=== PATIENT | male | born 1950 | race Caucasian/White ===

== ENCOUNTER 2023-02-02 10:14 | Outpatient (OUT) | payer MEDICARE, SELFPAY ==
[2023-02-02 10:48] LABS: Anion Gap 10.8; BUN Creatinine Ratio 12.4; Calcium 8.7 mg/dL (8.5-10.1); Carbon Dioxide 27.4 mmol/L (21.0-32.0); Chloride 104 mmol/L (98-107); Estimated GFR (African America >60 (>=60); Estimated GFR (Non-African Ame >60 (>=60); Glucose 105 mg/dL (74-106); Potassium 4.2 mmol/L (3.5-5.1); Sodium 138 mmol/L (136-145)
== END 2023-02-02 10:15 | disposition home or self-care (01) ==
LOC: LAB 10:14
PROVIDERS: Visit Provider Nurse Practitioner
DX: I50.23 Acute on chronic systolic (congestive) heart failure (principal)
CPT/HCPCS: 36415; 80048

== ENCOUNTER 2023-05-25 10:53 | Outpatient (OUT) | payer OTHER, SELFPAY ==
[2023-05-25 12:11] LABS: Free T4 1.37 ng/dL (0.76-1.46)
[2023-05-25 12:21] LABS: Anion Gap 6.3; BUN Creatinine Ratio 8.5; Calcium 8.4 mg/dL (8.5-10.1); Carbon Dioxide 29.7 mmol/L (21.0-32.0); Chloride 102 mmol/L (98-107); Estimated GFR (African America >60 (>=60); Estimated GFR (Non-African Ame >60 (>=60); Glucose 118 mg/dL (74-106); Sodium 134 mmol/L (136-145); Thyroid Stimulating Hormone 1.576 uIU/mL (0.358-3.740)
== END 2023-05-25 10:54 | disposition home or self-care (01) ==
LOC: LAB 10:53
PROVIDERS: Visit Provider Internal Medicine Interventional Cardiology
DX: I50.22 Chronic systolic (congestive) heart failure (principal); Z79.899 Other long term (current) drug therapy
CPT/HCPCS: 36415; 80048; 84439; 84443

== ENCOUNTER 2023-11-24 10:26 | Emergency (ER) | payer OTHER, SELFPAY ==
[2023-11-24] VITALS (38 sets, daily range): BP systolic 113–187; BP diastolic 55–81; PULSE 50–71; TEMP 36.9; O2SAT 92–99; BMI 22.5
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
--- NOTE | 2023-11-24 10:33 | XR_ITS ---
[address] [address] Patient Name: ANTONIO COFFMAN MRN: [id number] date: 1950 Sex: M Assigned Patient Location: ER Current Patient Location: ED.MAIN Accession/Order Number: [id number] Exam Date: 11/24/2023 10:35 Report Date: 11/24/2023 10:53 At the request of: PEARL OGLESBY Procedure: XR chest 1V EXAM: XR chest 1V HISTORY: Trauma COMPARISON: 03/28/2020 TECHNIQUE: AP semierect FINDINGS: LUNGS: No significant pulmonary parenchymal abnormalities. VASCULATURE: No increased pulmonary vasculature. PLEURA: No pneumothorax, effusion, or pleural thickening. CARDIAC: Moderate stable cardiomegaly. MEDIASTINUM: No visible mass or adenopathy. Left pacemaker BONES: Left humerus fracture Cervical fusion hardware OTHER: Negative. XR/XR chest 1V IMPRESSION: Left humerus fracture Stable cardiomegaly with clear lungs Electronically authenticated by: TAVON SPARKS Date: 11/24/2023 10:53
[2023-11-24] MEDS: HYDROMORPHONE HCL 1 MG/ML CARTRIDGE IV ×2 (10:49→14:58)
[2023-11-24 10:50] LABS: Basophils Percent Auto 0.3 % (0.2-2.0); Eosinophils Absolute Auto 0.1 10^3/uL (0.0-0.7); Eosinophils Percent Auto 1.1 % (0.9-7.0); Hematocrit 37.3 % (42.0-54.0); Hemoglobin 12.1 g/dL (14.0-18.0); Immature Granulocytes Abs Auto 0.22 10^3/uL (0.00-0.03); Immature Granulocytes Pct Auto 1.8 % (0.0-0.5); Lymphocytes Percent Auto 16.3 % (20.5-60.0); Mean Corpuscular HGB Conc 32.4 g/dL (29.9-35.2); Mean Corpuscular Hemoglobin 33.8 pg (25.9-34.0); Mean Corpuscular Volume 104.2 fL (80.0-94.0); Mean Platelet Volume 9.5 fL (9.5-13.5); Monocytes Absolute Auto 0.8 10^3/uL (0.3-0.8); Neutrophils Absolute Auto 8.9 10^3/uL (1.4-6.5); Neutrophils Percent Auto 73.5 % (43.0-75.0); Platelet Count 144 10^3/uL (150-450); Red Blood Count 3.58 10^6/uL (4.70-6.10); Red Cell Distribution Width 14.6 % (11.0-15.0); White Blood Count 12.1 10^3/uL (4.0-11.0)
[2023-11-24] MEDS: 0.9 % SODIUM CHLORIDE 1,000 ML 1000 ML IV (10:50)
[2023-11-24 11:04] LABS: INR 1.01; Prothrombin Time 10.7 sec (9.0-11.6)
[2023-11-24 11:10] LABS: Alanine Aminotransferase 60 U/L (16-63); Albumin Level 3.5 g/dL (3.4-5.0); Alkaline Phosphatase 65 U/L (46-116); Anion Gap 11.9; Aspartate Amino Transferase 40 U/L (15-37); Bilirubin Total 0.4 mg/dL (0.2-1.0); Calcium 9.1 mg/dL (8.5-10.1); Carbon Dioxide 26.1 mmol/L (21.0-32.0); Chloride 106 mmol/L (98-107); Estimated GFR (African America >60 (>=60); Estimated GFR (Non-African Ame >60 (>=60); Globulin 3.5 g/dL; Glucose 131 mg/dL (74-106); Sodium 140 mmol/L (136-145)
--- NOTE | 2023-11-24 11:17 | CT_ITS ---
[address] [address] Patient Name: ANTONIO COFFMAN MRN: [id number] date: 1950 Sex: M Assigned Patient Location: ER Current Patient Location: .MAIN Accession/Order Number: [id number] Exam Date: 11/24/2023 10:58 Report Date: 11/24/2023 12:01 At the request of: PEARL OGLESBY Procedure: CT cervical spine wo con PROCEDURE: CT cervical spine wo con COMPARISON: None. HISTORY: Trauma TECHNIQUE: Axial, Coronal, and Sagittal CT images obtained without IV contrast. Dose reduction techniques were achieved by using automated exposure control and/or adjustment of mA and/or kV according to patient size and/or use of iterative reconstruction technique. FINDINGS: PARASPINAL AREA: Normal with no visible mass. DISCS: Multilevel disc space narrowing. Fusion C5-C7. BONES: 3 mm anterolisthesis of C3 in relation to C4 and 4 mm anterolisthesis of C7 on T1. No acute fracture. Anterior fusion C5-C7 with no mechanical failure. Moderate degenerative spondylosis and facet osteoarthropathy OTHER: Multilevel foraminal stenosis, most significant right C3-C4 and left C4-C5 CT/CT cervical spine wo con IMPRESSION: No acute traumatic abnormality Moderate degenerative changes with foraminal stenosis Electronically authenticated by: TAVON SPARKS Date: 11/24/2023 12:01
--- NOTE | 2023-11-24 11:17 | XR_ITS ---
[address] [address] Patient Name: ANTONIO COFFMAN MRN: [id number] date: 1950 Sex: M Assigned Patient Location: ER Current Patient Location: ED.MAIN Accession/Order Number: [id number] Exam Date: 11/24/2023 11:10 Report Date: 11/24/2023 11:28 At the request of: PEARL OGLESBY Procedure: XR humerus LT PROCEDURE: XR humerus LT COMPARISON: None. HISTORY: Trauma FINDINGS: BONES:Acute oblique fracture of the left humeral diaphysis with distraction up to 1.6 cm. No dislocation SOFT TISSUES:Negative. No visible soft tissue swelling. EFFUSION:None visible. OTHER: Limited nonstandard nonorthogonal projections XR/XR humerus LT IMPRESSION: Acute displaced left humeral diaphyseal fracture Electronically authenticated by: TAVON SPARKS Date: 11/24/2023 11:28
[2023-11-24] MEDS: BACITRACIN 0.9 GM PACKET 1 PACKET TOPICAL (12:45)
--- NOTE | 2023-11-24 12:59 | ECG_ITS ---
[facility] Test Date: 2023-11-24 Pat Name: ANTONIO COFFMAN Department: Room: - Gender: Male Division [address] Supervisor: : 1950 Requested By: [id number] Order Number: [id number] Reading MD: Measurements Intervals [place] Rate: 53 P: 56 IN: 188 QRS: 252 QRSD: 148 T: 67 QT: 512 QTc: 494 Interpretive Statements 1100 Sinus rhythm 2330 Nonspecific intraventricular conduction block 7100 Abnormal right axis deviation 9150 abnormal ECG No previous ECG available for comparison
--- NOTE | 2023-11-24 14:22 | PM.EN ---
Event Note Event Note: Hospitalist team called for admission for pre operative clearance for humeral fracture. I had placed admission orders for the patient but I inquired from Anesthesiology to ensure patient can be placed under GA safely at our facility and was informed that Anesthesiology would prefer that patient be transferred to Tertiary care center due to his multiple cardiac co morbidities as he is at high risk of poor outcome due to cardiac hx
== END 2023-11-24 14:58 | disposition short-term general hospital (02) ==
PROVIDERS: Emergency Provider Emergency Medicine Emergency Medical Services
DX: S42.302A Unspecified fracture of shaft of humerus, left arm, initial encounter for closed fracture (principal); V86.55XA Driver of 3- or 4- wheeled all-terrain vehicle (ATV) injured in nontraffic accident, initial encounter; I25.2 Old myocardial infarction; Z95.0 Presence of cardiac pacemaker; Z95.5 Presence of coronary angioplasty implant and graft; Z79.82 Long term (current) use of aspirin; Z79.02 Long term (current) use of antithrombotics/antiplatelets; Z79.899 Other long term (current) drug therapy
CPT/HCPCS: 36415; 71045; 72125; 73060; 80053; 85025; 85610; 93005; 96374; 96376; 99285; J1170

== ENCOUNTER 2024-05-29 09:20 | Outpatient (OUT) | payer OTHER, SELFPAY ==
[2024-05-29 11:15] LABS: Alanine Aminotransferase 17 U/L (16-63); Albumin Level 3.3 g/dL (3.4-5.0); Alkaline Phosphatase 93 U/L (46-116); Anion Gap 12.9; Aspartate Amino Transferase 18 U/L (15-37); BUN Creatinine Ratio 8.5; Bilirubin Total 0.5 mg/dL (0.2-1.0); Calcium 8.7 mg/dL (8.5-10.1); Carbon Dioxide 25.6 mmol/L (21.0-32.0); Chloride 109 mmol/L (98-107); Chol HDL Ratio 1.4; Cholesterol 102 mg/dL (<=200); Estimated GFR (African America >60 (>=60 mL/min/1.73m^2); Estimated GFR (Non-African Ame >60 (>=60 mL/min/1.73m^2); Globulin 3.3 g/dL; Glucose 96 mg/dL (74-106); HDL Cholesterol 74 mg/dL (40-60); Potassium 3.5 mmol/L (3.5-5.1); Sodium 144 mmol/L (136-145); Thyroid Stimulating Hormone 0.454 uIU/mL (0.358-3.740); Total Protein 6.6 g/dL (6.4-8.2); Triglycerides 57 mg/dL (<=150); VLDL CHOLESTEROL 11.4 mg/dL
[2024-05-29 15:07] LABS: Free T4 1.42 ng/dL (0.76-1.46)
== END 2024-05-29 09:21 | disposition home or self-care (01) ==
LOC: LAB 09:22
PROVIDERS: PCP Family Medicine; Visit Provider Nurse Practitioner Family
DX: E78.5 Hyperlipidemia, unspecified (principal); I10 Essential (primary) hypertension; Z79.899 Other long term (current) drug therapy
CPT/HCPCS: 36415; 80053; 80061; 84439; 84443

== ENCOUNTER 2024-08-28 12:44 | Outpatient (RCR) | payer OTHER, SELFPAY | END 2024-10-03 07:13 | disposition home or self-care (01) | LOC: PT 12:44 | PROVIDERS: PCP Family Medicine | DX: M54.50 Low back pain, unspecified (principal); M79.605 Pain in left leg | CPT/HCPCS: 97110; 97161 ==

== ENCOUNTER 2024-10-03 10:10 | Outpatient (OUT) | payer OTHER, SELFPAY ==
--- OUTSIDE RECORDS SUMMARY | 2024-10-03 10:15 | XMS_ITS | CCD ---
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 Roldan Khanna MD Primary Care Physician - Roldan Khanna MD This Is Your Medications List amiodarone (amiodarone 200 mg Tab) aspirin (aspirin 81 mg Oral EC Tab) atorvastatin (atorvastatin 40 mg Tab) carvedilol (carvedilol 12.5 mg Tab) clopidogrel (clopidogrel 75 mg Tab) sacubitril-valsartan (Entresto 24 mg-26 mg oral tablet) Procedures Performed Ankle, Cardiac catheterization, Cardiac pacemaker, History of vasectomy, Tonsils and adenoids. Discharge Vitals Temperature (Temporal Artery) 36.6 ?C Heart Rate (Peripheral) 56 Respiratory Rate 16 Blood Pressure 136/68 Height 161 cm Height 63 in Weight 51.4 kg Weight 113.08 lb BMI 19.83 What to do next Scheduled Follow-Up Appointments 2024 2:15 PM EST With: Roldan Khanna MD Where: [facility] [address] [address]- 2024 2:30 PM EST With: Where: [facility] [address] [address]- Medications What How Much When Instructions Unchanged amiodarone (amiodarone 200 mg Tab) 1 Tablets By Mouth 2 times a day Unchanged aspirin (aspirin 81 mg Oral EC Tab) 1 Tablets By Mouth Every day Unchanged atorvastatin (atorvastatin 40 mg Tab) See instructions TAKE 1 TABLET BY MOUTH EVERY DAY Unchanged carvedilol (carvedilol 12.5 mg Tab) 0.5 Tablets By Mouth 2 times a day Unchanged clopidogrel (clopidogrel 75 mg Tab) 1 Tablets By Mouth Every day Unchanged sacubitril-valsartan (Entresto 24 mg-26 mg oral tablet) 0.5 Tablets By Mouth 2 times a day Allergies No Known Allergies No Known Medication Allergies Problems Ongoing - Any problem that you are currently receiving treatment for. ASCVD (arteriosclerotic cardiovascular disease) Benign hypertensive heart disease with CHF (congestive heart failure) Chronic systolic congestive heart failure COPD without exacerbation Hospital discharge follow-up Hx of ventricular tachycardia Hypotension Ischemic dilated cardiomyopathy Left supracondylar humerus fracture Lumbar compression fracture Pacemaker Rib fracture Patient Survey You may receive a survey via text or e-mail asking about your office visit. Please share your experience with us by completing your survey. We appreciate your feedback and thank you for choosing us for your care. Normal [facility] Family Medicine Office/Clini c Noteon 04-17-2024 Family Medicine Office/Clinic Note Family Medicine Office/Clinic Note Chief Complaint Follow-up visit to review COPD status and ASCVD management HPI Staff Dung is a 73 year old male presenting for 3 month follow up CHF, ASCVD, COPD Patient is here for follow up on COPD: Feeling controlled on medication: not on any meds for this Need medication refilled: n/a Do you use O2? no questions/concerns: none History of Present Illness The patient is a 73-year-old male presenting with a follow-up visit to review COPD status and ASCVD management. The patient has a documented history of chronic obstructive pulmonary disease (COPD) without exacerbation. Currently, the patient reports no change in breathing, describing it as about the same as previous evaluations. The absence of prescribed inhalers was noted; the patient has never been provided inhalers and occasionally experiences shortness of breath. He is currently smoking half to three-quarters of a pack per day and aims to reduce smoking to zero. No prior lung cancer screening CT scan was confirmed; however, the patient anticipates a possible upcoming screen. In conjunction, the patient has arteriosclerotic cardiovascular disease (ASCVD) with stable management reported from recent cardiology evaluations. The patient denies any recent chest pain and is compliant with medications, including amiodarone, aspirin, atorvastatin, and Entresto. The coronary artery disease (CAD) management is being overseen by cardiology with no medication changes needed at this visit. Further chronic conditions include chronic systolic congestive heart failure without noted exacerbation. During the consultation, routine clinical checks including blood work and maintaining wellness assessments were mentioned. Review of Systems PHQ Score Initial Depression Screen Score: 0 SCORE - Respiratory: Reports occasional shortness of breath - General: Denies chest pain Physical Exam Vitals & Measurements T: 36.6 ?C(Temporal Artery) HR: 56(Peripheral) RR: 16 BP: 136/68 SpO2: 94% HT: 63 in HT: 161 cm WT: 51.4 kg WT: 113.08 lb BMI: 19.83 - Cardiovascular: Heart rate regular rhythm with the presence of a pacemaker - Respiratory: Diminished breath sounds in the lung bases improving upon standing; clear remaining lung kennedy - Neurological: Alert and oriented, equal movement of all extremities Assessment/Plan 1. ASCVD (arteriosclerotic cardiovascular disease) (I25.10: Atherosclerotic heart disease of [place] coronary artery without angina pectoris) The patient's ASCVD appears well managed under current cardiology oversight. Continued use of medications, including amiodarone, aspirin, atorvastatin, and Entresto, is indicated. No recent angina or chest pain reported, and stable cardiac status was observed. An ongoing cardiology consult is advised without new interventions from the family medicine perspective at this juncture. Ordered: Body Mass Index (BMI) documented 3008F CT Chest, Low Dose Screening Current tobacco smoker 1034F Depression Screening Negative 3352F Most recent diastolic blood pressure <80 mm Hg 3078F Patient screen for fall risk: no falls in last year or 1 fall with no injury in last year 1101F Systolic BP 130-139 mm Hg (Most Recent) 3075F 2. COPD without exacerbation (J44.9: Chronic obstructive pulmonary disease, unspecified) Although the patient experiences occasional shortness of breath, no exacerbation of COPD was noted. Inhaler therapy with albuterol as needed is recommended to address episodes of dyspnea. Discussion of smoking cessation is critical due to potential lung function detriment. A low-dose CT scan for lung cancer screening should be verified and scheduled if not completed, as the patient recalls a potentially forthcoming examination Ordered: Body Mass Index (BMI) documented 3008F CT Chest, Low Dose Screening Current tobacco smoker 1034F Depression Screening Negative 3352F Most recent diastolic blood pressure <80 mm Hg 3078F Patient screen for fall risk: no falls in last year or 1 fall with no injury in last year 1101F Systolic BP 130-139 mm Hg (Most Recent) 3075F 3. Chronic systolic congestive heart failure (I50.22: Chronic systolic (congestive) heart failure) The patient exhibits no new symptoms indicative of heart failure exacerbation. Current medication management is continued with cardiology's guidance in place, and no urgent changes required from a family medicine perspective, pending further symptoms or incident reports. Ordered: Body Mass Index (BMI) documented 3008F CT Chest, Low Dose Screening Current tobacco smoker 1034F Depression Screening Negative 3352F Most recent diastolic blood pressure <80 mm Hg 3078F Patient screen for fall risk: no falls in last year or 1 fall with no injury in last year 1101F Systolic BP 130-139 mm Hg (Most Recent) 3075F 4. Body mass index (BMI) of 19 or less in adult (Z68.1: Body mass index [BMI] 19.9 or less, adult) Monitoring of the patient's nutri (more content not included)... Normal [facility] Comment on above: Result Comment: Elec tronically Signed By: Jey LANGSTON, Roldan Talbert\.br\Date and Time Signed: 04/17/24 15:27 EDT Orders Onlyon 04-03-2024 Orders Only [id number] Matthew Coffman 1950 M Date Provider Department Center 04/03/2024 UZIEL AGUIRRE Family History Problem Relation Age of Onset No Known Problems Mother No Known Problems Father Family Status - Relation Status Age at Mother Father Normal [facility] 36on 03-20-2024 36 Okay. Please ask wha t his BP has been running. Would like for him to get a CMP and lipid panel in 2 weeks. Thanks! Normal [facility] Office Visiton 03-07-2024 Follow-up visit [id number] Matthew Coffman 1950 M Date Provider Department Center 03/07/2024 ABBY CENTENO CARD [facility] Family History Problem Relation Age of Onset No Known Problems Mother No Known Problems Father Family Status - Relation Status Age at Mother Father Level of Service:32513 ME OFFICE/OUTPATIENT ESTABLISHED LOW MDM 20 MIN Reason for Visit and Comments: Congestive Heart Failure [127] Coronary Artery Disease [187] Hypertension [624165] Normal [facility] XR shoulder LT min 2V*on XR shoulder LT min 2V* [facility] [address] [place] [address] XRay Report Signed Patient: Dung Coffman MR#: [id number] : 1950 Acct:[id number] Age/Sex: 73 / M ADM Date: 03/06/24 Loc: [facility] Room: Type: [facility] Attending Dr: Marjorie Castro NP-C Copies to: CURRY Cardoza Ordering Provider: CURRY Cardoza Date of Service: 03/06/24 XR/XR shoulder LT min 2V*: S42.302A - Unspecified fracture of shaft of humerus, left... 3 views left shoulder plain film HISTORY: Status post left humerus fracture COMPARISON: 02/06/2024 ACUTE FINDINGS: Stable alignment with interval callus formation. DEGENERATIVE CHANGE: Unremarkable SOFT TISSUE FINDINGS: Unremarkable JOINT EFFUSION: None POSTOP CHANGES: None BONY MINERALIZATION: Adequate XR/XR shoulder LT min 2V* IMPRESSION: Healing fracture Impression dictated by: Yan Greenberg M.D.03/06/2024 4:16 PM Dictation Location: [place] [address] Transcribed By: [facility] 03/06/24 161 Dictated By: Yan Greenberg DO 03/06/24 161 Signed By: 03/06/24 1616 Normal [facility] XR elbow LT 2Von 02-06-2024 XR elbow LT [address]V [facility] [address] [place] [address] XRay Report Signed Patient: Dung Coffman MR#: [id number] : 1950 Acct:[id number] Age/Sex: 73 / M ADM Date: 02/06/24 Loc: [facility] Room: Type: [facility] Attending Dr: Marjorie Castro FACSIMILE OPERATOR-C Copies to: CURRY Cardoza Ordering Provider: CURRY Cardoza Date of Service: 02/06/24 XR/XR elbow LT 2V: M25.522 - Pain in left elbow 2 views LEFTelbow plain film COMPARISON :None HISTORY: LEFT humerus fracture ACUTE FINDINGS: Proximal humerus fracture incompletely visualized. DEGENERATIVE CHANGE: Unremarkable SOFT TISSUE FINDINGS: Olecranon soft tissue swelling. JOINT EFFUSION: None POSTOP CHANGES: None BONE MINERALIZATION: Adequate XR/XR elbow LT 2V IMPRESSION: Incompletely visualized proximal LEFT humerus fracture. No additional fracture. Olecranon soft tissue swelling. Impression dictated by: Yan Greenberg M.D.02/06/2024 5:38 PM Dictation Location: [place] [address] Transcribed By: [facility] 02/06/24 1738 Dictated By: Yan Greenberg DO 02/06/24 1736 Signed By: 02/06/24 1738 Normal [facility] XR shoulder LT min 2V*on XR shoulder LT min 2V* [facility] [place] [address] XRay Report Signed Patient: Dung Coffman MR#: [id number] : 1950 Acct:[id number] Age/Sex: 73 / M ADM Date: 02/06/24 Loc: [facility] Room: Type: [facility] Attending Dr: Marjorie Castro FACSIMILE OPERATORGardeniaC Copies to: CURRY Cardoza Ordering Provider: CURRY Cardoza Date of Service: 02/06/24 XR/XR shoulder LT min 2V*: S42.302A - Unspecified fracture of shaft of humerus, left... XR shoulder LT min 2V* 02/06/2024 12:22 PM SIGNS AND SYMPTOMS: Follow-up left proximal humerus fracture PROTOCOL: Frontal, Grashey, and scapular Y views of left shoulder COMPARISON: 01/16/2024 FINDINGS: There is an obliquely oriented mildly displaced fracture of the proximal shaft of the left humerus similar to the prior exam. There is mild hypertrophy of the common clavicular joint. There is mild narrowing of the glenohumeral joint. There is ossification at the rotator cuff insertion along the greater tuberosity similar to the prior exam. There is a pacer device on the left which is unchanged. XR/XR shoulder LT min 2V* IMPRESSION: There is an obliquely oriented mildly displaced fracture of the proximal shaft of the left humerus similar to the prior exam. No change in alignment or significant interval healing. Impression dictated by: Henry Sanchez M.D.02/06/2024 5:34 PM Dictation Location: [place] [address] Transcribed By: [facility] 02/06/24 173 Dictated By: Henry Sanchez II, MD 02/06/241732 Signed By: 02/06/241733 [facility] 36 01-29-2024 36 Yes, okay from my opinion. Just make sure he checks with his PCP as well. Thanks [facility] 01-27-20 [facility] Case Information Case Priority: None Programs: -- Referral Source: Towboat Engineer Referral Reason: Care coordination Case Type: Transition Care Management Risk Score: -- Case Status: Enrolled (December 27, 2023) Date Assigned: December 27, 2023 Assigned By: Vin Vaca Date Enrolled: December 27, 2023 Assigned Primary Personnel: Vin Vaca Assigned Secondary Personnel: -- Case Physician: Jey LANGSTON, Roldan Perez Ongoing ASCVD (arteriosclerotic cardiovascular disease) 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 Home Medications amiodarone 200 mg Tab, 200 mg= 1 tab(s), Oral, BID aspirin 81 mg Oral EC Tab, 81 mg= 1 tab(s), Oral, Daily atorvastatin 40 mg Tab, See Instructions carvedilol 12.5 mg Tab, 6.25 mg= 0.5 tab(s), Oral, BID clopidogrel 75 mg Tab, 75 mg= 1 tab(s), Oral, Daily Entresto 24 mg-26 mg oral tablet, 0.5 tab(s), Oral, BID Allergies No Known Medication Allergies Social History Alcohol Household alcohol concerns: No., 09/07/2023 Tobacco 10 or more cigarettes (1/2 pack or more)/day in last 30 days Tobacco Use:. Never Smokeless Tobacco Use:. Cigarettes, 1 per day. 53 year(s). Total pack years: 53. Started age 20.0 Years. Previous treatment: None. Ready to change: No. Household tobacco concerns: No. Yes, 01/19/2024 Family History Stroke: Father. Screenings and Assessments 12/27/23 15:05:00 Result Name Value Comment Phone Call Monitoring Consent Agreed to continue call Phone Verification Patient Information Full name, street address and date of verified CM Program Enrollment Provides verbal consent for enrollment Goals and Interventions Care Plan Progress Note TCM#5- Spoke with patient for final TCM call- states he is doing 'pretty good.' Patient notes the oxycodone is working 'somewhat' for his shoulder pain, 'not so much' for his back pain. States it is helping more than the tramadol was for his pain. Patient is trying to make prescription last. Reminded patient to call if refill needed, OV will be required as well. He verbalized understanding. Patient denies need for OV at this time. States right now he is 'taking it one day at a time.' He has been following up with Cherie Castillo, that's going well. Patient denies any other issues or concerns. Communication Events Date: January 27, 2024 Method: Phone call Type: Outbound Duration (min): 3 Outcome: Case discussion Contact Type: costume shop coordinator Contact Name: Vin Vaca Notes: TCM#5- see tcm note. Created By: Vin Vaca Date: January 24, 2024 Method: Phone call Type: Outbound Duration (min): 1 Outcome: No answer Contact Type: costume shop coordinator Contact Name: Vin Vaca Notes: TCM#5- attemtped to reach pt for final tcm, no answer. Created By: Vin Vaca Date: January 17, 2024 Method: Phone call Type: Outbound Duration (min): 9 Outcome: Case discussion Contact Type: costume shop coordinator Contact Name: Vin Vaca Notes: TCM#4- see tcm note. Created By: Vin Vaca Date: January 10, 2024 Method: Phone call Type: Outbound Duration (min): 7 Outcome: Case discussion Contact Type: costume shop coordinator Contact Name: Vin Vaca Notes: TCM#3- see tcm note. Created By: Vin Vaca Date: January 05, 2024 Method: Phone call Type: Outbound Duration (min): 5 Outcome: Case discussion Contact Type: costume shop coordinator Contact Name: Vin Vaca Notes: Ortho referral follow up see note Created By: Vin Vaca Date: January 05, 2024 Method: Phone call Type: Outbound Duration (min): 6 Outcome: Case discussion Contact Type: costume shop coordinator Contact Name: Vin Vaca Notes: ortho referral follow up- see note. Created By: Vin Vaca Date: January 03, 2024 Method: Phone call Type: Inbound Duration (min): 2 Outcome: Case discussion Contact Type: Patient Contact Name: DUNG COFFMAN Notes: Refill request- see note. Created By: Vin Vaca Date: January 03, 2024 Method: Phone call Type: Outbound Duration (min): 9 Outcome: Case discussion Contact Type: costume shop coordinator Contact Name: Vin Vaca Notes: TCM#2- see tcm note. Created By: Vin Vaca [facility] 36on 01-24-2024 36 What is the supplement? Normal [facility] Ambulatory Visit Summaryon 0 01-19-2024 Ambulatory Visit Summary Ambulatory Visit Summary DUNG COFFMAN :1950 Visit Date:01/19/2024 Ambulatory Visit Instructions Your Diagnosis Closed supracondylar fracture of left humerus with routine healing, subsequent encounter Body mass index (BMI) less than 19 Smoker Your Care Team Attending Physician - Roldan Khanna MD Primary Care Physician - Roldan Khanna MD This Is Your Medications List amiodarone (amiodarone 200 mg Tab) aspirin (aspirin 81 mg Oral EC Tab) atorvastatin (atorvastatin 40 mg Tab) carvedilol (carvedilol 12.5 mg Tab) clopidogrel (clopidogrel 75 mg Tab) sacubitril-valsartan (Entresto 24 mg-26 mg oral tablet) Procedures Performed Ankle, Cardiac catheterization, Cardiac pacemaker, History of vasectomy, Tonsils and adenoids. Discharge Vitals Heart Rate (Peripheral) 60 Respiratory Rate 18 Blood Pressure 100/64 Height 161.0 cm Height 63 in Weight 48.1 kg Weight 105.82 lb BMI 18.56 What to do next Scheduled Follow-Up Appointments Tuesday 2:45 PM EDT With: Roldan Khanna MD Where: [facility] Invalid Interpretation Code [address] [place] [address]- \.br\ Tuesday 11:00 AM EST \.br\ With:\.br\ Where: [facility] Office/Clini c Noteon 01-19-2024 Family Medicine Office/Clinic Note Family Medicine Office/Clinic Note HPI Staff Dung is a 73 year old male presenting for continued back pain unable to see pain management would like his pain medication refilled Pain characteristics: Pain location: left arm Intensity: 8/10 constant Onset: 11/25/23 Opioids prescribed: none Medication agreement UTD: _ Urine drug screen performed:_ Pt states pain management told him they wont see him for 3 months from the day of the accident. Pt is out of Tramadol but states that didn't help him and would like to discuss something different for pain. Pt goes today to have brace put on left arm at [facility]. History of Present Illness - Pt states he is in 8/10 pain. - No improvement - Saw Ortho and Ortho gave him no pain meds - Pain refused to see him. - Asking for more pain meds - Pt is resting comfortable. Review of Systems PHQ Score Initial Depression Screen Score: 0 SCORE Physical Exam Vitals & Measurements HR: 60(Peripheral) RR: 18 BP: 100/64 HT: 63 in HT: 161.0 cm WT: 48.1 kg WT: 105.82 lb BMI: 18.56 General: alert, no acute distress ENMT: oral mucosa moist, Cardiovascular: regular rate and rhythm, normal peripheral perfusion, Diminished Respiratory: Lungs CTA, respirations non labored Extremities: no deformity, no trauma, L arm is in a sling. Neurological: oriented x 4, LOC appropriate for age, CN II-XII intact, motor strength equal & normal bilaterally, speech normal Abdomen: Soft, Nontender, Non-distended, + BS Assessment/Plan 1. Closed supracondylar fracture of left humerus with routine healing, subsequent encounter (S42.412D: Displaced simple supracondylar fracture without intercondylar fracture of left humerus, subsequent encounter for fracture with routine healing) - Please see ortho - Will give 3 days of pain meds. - Follow up with Ortho. 2. Body mass index (BMI) less than 19 (Z68.1: Body mass index [BMI] 19.9 or less, adult) - Concern for BMI 3. Smoker (F17.200: Nicotine dependence, unspecified, uncomplicated) - Please stop smoking. Orders: lidocaine topical, 1 patch(es), Topical, Daily, 30 film, Refill(s) 0, apply 12 hours on and 12 hours off daily, [facility]/pharmacy #[id number], 161, cm, 12/27/23 14:07:00 EDT, Height/Length Dosing, 50.5, kg, 12/27/23 14:07:00 EDT, Weight Dosing oxycodone, 5 mg = 1 cap(s), Oral, q6hr, PRN for pain, X 3 day(s), # 12 cap(s), Refills(s) 0, Pharmacy: [facility]/pharmacy #[id number], 161, cm, 01/19/24 9:44:00 EDT, Height/Length Dosing, 48.1, kg, 01/19/24 9:44:00 EDT, Weight Dosing tramadol, 50 mg = 1 tab(s), Oral, q12hr, PRN for pain, # 30 tab(s), Refills(s) 0, Pharmacy: [facility]/pharmacy #[id number], 161, cm, 12/27/23 14:07:00 EDT, Height/Length Dosing, 50.5, kg, 12/27/23 14:07:00 EDT, Weight Dosing Total time spent preparing for the encounter, evaluating and assessing the patient, documenting the visit, and ordering appropriate follow-up work was 30 minutes. Follow-up No qualifying data available Patient Education BMI for Adults Problem List/Past Medical History Ongoing ASCVD (arteriosclerotic cardiovascular disease) 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 Medications amiodarone 200 mg Tab, 200 mg= 1 tab(s), Oral, BID aspirin 81 mg Oral EC Tab, 81 mg= 1 tab(s), Oral, Daily atorvastatin 40 mg Tab, See Instructions carvedilol 12.5 mg Tab, 6.25 mg= 0.5 tab(s), Oral, BID clopidogrel 75 mg Tab, 75 mg= 1 tab(s), Oral, Daily Entresto 24 mg-26 mg oral tablet, 0.5 tab(s), Oral, BID oxyCODONE 5 mg Cap, 5 mg= 1 cap(s), Oral, q6hr, PRN Allergies No Known Medication Allergies Social History Alcohol Household alcohol concerns: No., 09/07/2023 Tobacco 10 or more cigarettes (1/2 pack or more)/day in last 30 days Tobacco Use:. Never Smokeless Tobacco Use:. Cigarettes, 1 per day. 53 year(s). Total pack years: 52. Started age 20.0 Years. Previous treatment: None. Ready to change: No. Household tobacco concerns: No. Yes, 01/19/2024 Family History Stroke: Father. Immunizations Vaccine Date Status Comments zoster vaccine, inactivated 07/13/2023 Recorded pneumococcal 20-valent conjugate vaccine 05/24/2023 Recorded influenza virus vaccine, inactivated 03/29/2023 Given influenza virus vaccine, inactivated 03/29/2023 Given Early/Late Reason: Other : patient was given this on 03/29/23 it needed entered as I forgot to do it on visit day influenza virus vaccine, inactivated 05/24/2022 Recorded SARS-CoV-2 (COVID-19) [id number] 05/24/2022 Recorded SARS-CoV-2 (COVID-19) [id number] vaccine 07/15/2021 Recorded 2 (more content not included)... Normal [facility] Comment on above: Result Comment: Elec tronically Signed By: Jey LANGSTON, Roldan Talbert\.br\Date and Time Signed: 01/19/24 10:01 EDT Population Health 01-17-20 [facility] Case Information Case Priority: None Programs: -- Referral Source: Towboat Engineer Referral Reason: Care coordination Case Type: Transition Care Management Risk Score: -- Case Status: Enrolled (December 27, 2023) Date Assigned: December 27, 2023 Assigned By: Vin Vaca Date Enrolled: December 27, 2023 Assigned Primary Personnel: Vin Vaca Assigned Secondary Personnel: -- Case Physician: Roldan Khanna MD Problems Ongoing ASCVD (arteriosclerotic cardiovascular disease) 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 Home Medications amiodarone 200 mg Tab, 200 mg= 1 tab(s), Oral, BID aspirin 81 mg Oral EC Tab, 81 mg= 1 tab(s), Oral, Daily atorvastatin 40 mg Tab, See Instructions carvedilol 12.5 mg Tab, 6.25 mg= 0.5 tab(s), Oral, BID clopidogrel 75 mg Tab, 75 mg= 1 tab(s), Oral, Daily Entresto 24 mg-26 mg oral tablet,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 Progressing Goal: Maintains adequate nutritional intake Outcome: Progressing Goal: Establish and maintain optimal ostomy function Outcome: Progressing Problem: Genitourinary - Adult Goal: Absence of urinary retention Outcome: Progressing Goal: Urinary catheter remains patent Outcome: Progressing Problem: Infection - Adult Goal: Absence of infection at discharge Outcome: Progressing Goal: Absence of infection during hospitalization Outcome: Progressing Goal: Absence of fever/infection during anticipated neutropenic period Outcome: Progressing Problem: Metabolic/Fluid and Electrolytes - Adult Goal: Electrolytes maintained within normal limits Outcome: Progressing Goal: Hemodynamic stability and optimal renal function maintained Outcome: Progressing Goal: Glucose maintained within prescribed range Outcome: Progressing Problem: Hematologic - Adult Goal: Maintains hematologic stability Outcome: Progressing Normal [facility] 30on 11-29-2023 30 The patient is Moderately Stable - Low risk of patient condition declining or worsening The patient's goals for the shift include Comfort The clinical goals for the shift include VSS Over the shift, the patient did make progress toward the following goals. Barriers to progression include traumatic injury. Recommendations to address these barriers include monitor for pain and medicate as ordered Problem: Pain - Adult Goal: Verbalizes/displays adequate comfort level or baseline comfort level Outcome: Progressing Problem: Safety - Adult Goal: Free from fall injury Outcome: Progressing Problem: Discharge Planning Goal: Discharge to home or other facility with appropriate resources Outcome: Progressing Problem: Chronic Conditions and Co-morbidities Goal: Patient's chronic conditions and co-morbidity symptoms are monitored and maintained or improved Outcome: Progressing Problem: Resident experiences pain/discomfort Goal: I will maintain an acceptable level of pain Outcome: Progressing Problem: Heart Failure diagnosis knowledge deficit Goal: Patient will verbalize understanding of how heart failure affects the body Outcome: Progressing Goal: Patient will verbalize understanding of how other conditions affect the heart Outcome: Progressing Problem: Fluid retention/overload Goal: Patient will be able to identify signs and symptoms of fluid retention Outcome: Progressing Problem: Heart failure medication adherence Goal: Consistently take heart failure medication as prescribed Outcome: Progressing Problem: Insufficient exercise regimen Goal: Patient will engage in physical activity safely Outcome: Progressing Problem: Heart failure progression and care needs Goal: Patient will verbalize understanding of heart failure progression Outcome: Progressing Problem: Heart failure maintenance Goal: Patient will not experience any symptoms of shortness of breath or body swelling over the next 3 months Outcome: Progressing Problem: Neurosensory - Adult Goal: Achieves stable or improved neurological status Outcome: Progressing Flowsheets (Taken 11/29/20231953) Achieves stable or improved neurological status: Assess for and report changes in neurological status Goal: Absence of seizures Outcome: Progressing Goal: Remains free of injury related to seizures activity Outcome: Progressing Goal: Achieves maximal functionality and self care Outcome: Progressing Problem: Respiratory - Adult Goal: Achieves optimal ventilation and oxygenation Outcome: Progressing Problem: Cardiovascular - Adult Goal: Maintains optimal cardiac output and hemodynamic stability Outcome: Progressing Goal: Absence of cardiac dysrhythmias or at baseline Outcome: Progressing Problem: Skin/Tissue Integrity - Adult Goal: Skin integrity remains intact Outcome: Progressing Goal: Incisions, wounds, or drain sites healing without S/S of infection Outcome: Progressing Goal: Oral mucous membranes remain intact Outcome: Progressing Problem: Musculoskeletal - Adult Goal: Return mobility to safest level of function Outcome: Progressing Goal: Maintain proper alignment of affected body part Outcome: Progressing Goal: Return ADL status to a safe level of function Outcome: Progressing Problem: Gastrointestinal - Adult Goal: Minimal or absence of nausea and vomiting Outcome: Progressing Goal: Maintains or returns to baseline bowel function Outcome: Progressing Goal: Maintains adequate nutritional intake Outcome: Progressing Goal: Establish and maintain optimal ostomy function Outcome: Progressing Problem: Genitourinary - Adult Goal: Absence of urinary retention Outcome: Progressing Goal: Urinary catheter remains patent Outcome: Progressing Problem: Infection - Adult Goal: Absence of infection at discharge Outcome: Progressing Goal: Absence of infection during hospitalization Outcome: Progressing Goal: Absence of fever/infection during anticipated neutropenic period Outcome: Progressing Problem: Metabolic/Fluid and Electrolytes - Adult Goal: Electrolytes maintained within normal limits Outcome: Progressing Goal: Hemodynamic stability and optimal renal function maintained Outcome: Progressing Goal: Glucose maintained within prescribed range Outcome: Progressing Problem: Hematologic - Adult Goal: Maintains hematologic stability Outcome: Progressing . Normal [facility] 30 The patient is Moderately Stable - Low risk of patient condition declining or worsening The patient's goals for the shift include comfort The clinical goals for the shift include VSS Over the shift, the patient did not make progress toward the following goals. Barriers to progression include . Recommendations to address these barriers include . Normal [facility] 30 Daily Case Managemen t Update Multidisciplinary rounds have been completed. Barriers to Discharge: Need 02 weaned and L humerus pain optimization prior to DC. [facility] accepted and started precert today. Diet: Dietary Orders (From admission, onward) Start Ordered 11/24/232052 Regular Diet Heart Healthy/HTN, CABG,Stroke, (2gNA, low fat, low cholesterol) Diet effective now Question Answer Comment Room Service? Yes Fat restriction: Heart Healthy/HTN, CABG,Stroke, (2gNA, low fat, low cholesterol) 11/24/232056 Physician Expected Discharge Date: 11/27/2023 Discharge Delays: PT Six Click Score: 15 OT Six Click Score: 16 PT Recommendations: long-term facility placement OT Recommendations: long-term facility placement Is expected discharge disposition appropriate for patient?: Yes New Consults: Consult Orders (From admission, onward) Start Ordered 11/24/23 1611 Inpatient consult to Trauma Surgery Once Specialty: Trauma Surgery Provider: (Not yet assigned) Question Answer Comment [employer] TRAUMA SURGERY TEAM Reason for Consult? humerus fracture Level of Consultation Consultation Only 11/24/23 1610 Therapy Orders (From admission, onward) Start Ordered 11/24/232053 OT eval and treat Until therapy completed Question: Reason for OT? Answer: Trauma 11/24/23205611/24/232053 PT eval and treat Until therapy completed Question: Reason for PT? Answer: Trauma 11/24/232056 Normal [facility] 30 The patient is Moderately Stable - Low risk of patient condition declining or worsening The patient's goals for the shift include comfort The clinical goals for the shift include VSS Over the shift, the patient did make progress toward the following goals. Barriers to progression include multiple fractures. Recommendations to address these barriers include monitor pt comfort level and provide pain medications as ordered Problem: Pain - Adult Goal: Verbalizes/displays adequate comfort level or baseline comfort level 11/29/2023146 by Marjorie Paula RN Outcome: Progressing 11/29/2023146 by Marjorie Paula RN Outcome: Progressing Problem: Safety - Adult Goal: Free from fall injury 11/29/2023146 by Marjorie Paula RN Outcome: Progressing Flowsheets (Taken 11/29/2023 0100) Free from fall injury: Assess patient frequently for physical needs Identify cognitive and physical deficits and behaviors that affect risk of falls [place] fall precautions as indicated by assessment Educate patient/family on patient safety, including physical limitations Instruct patient to call for assistance with activity based on assessment Modify environment to reduce risk of injury Consider OT/PT consult to assist with strengthening/mobility 11/29/2023146 by Marjorie Paula RN Outcome: Progressing Flowsheets (Taken 11/29/2023 0100) Free from fall injury: Assess patient frequently for physical needs Identify cognitive and physical deficits and behaviors that affect risk of falls [place] fall precautions as indicated by assessment Educate patient/family on patient safety, including physical limitations Instruct patient to call for assistance with activity based on assessment Modify environment to reduce risk of injury Consider OT/PT consult to assist with strengthening/mobility Problem: Discharge Planning Goal: Discharge to home or other facility with appropriate resources 11/29/2023146 by Marjorie Paula RN Outcome: Progressing 11/29/2023146 by Marjorie Paula RN Outcome: Progressing Problem: Chronic Conditions and Co-morbidities Goal: Patient's chronic conditions and co-morbidity symptoms are monitored and maintained or improved 11/29/2023146 by Marjorie Paula RN Outcome: Progressing 11/29/2023146 by Marjorie Paula RN Outcome: Progressing Problem: Resident experiences pain/discomfort Goal: I will maintain an acceptable level of pain 11/29/2023146 by Marjorie Paula RN Outcome: Progressing 11/29/2023146 by Marjorie Paula RN Outcome: Progressing Problem: Heart Failure diagnosis knowledge deficit Goal: Patient will verbalize understanding of how heart failure affects the body 11/29/2023146 by Marjorie Paula RN Outcome: Progressing 11/29/2023146 by Marjorie Paula RN Outcome: Progressing Goal: Patient will verbalize understanding of how other conditions affect the heart 11/29/2023146 by Marjorie Paula RN Outcome: Progressing 11/29/2023146 by Marjorie Paula RN Outcome: Progressing Problem: Fluid retention/overload Goal: Patient will be able to identify signs and symptoms of fluid retention 11/29/2023146 by Marjorie Paula RN Outcome: Progressing 11/29/2023146 by Marjorie Paula RN Outcome: Progressing Problem: Heart failure medication adherence Goal: Consistently take heart failure medication as prescribed 11/29/2023146 by Marjorie Paula RN Outcome: Progressing 11/29/2023146 by Marjorie Paula RN Outcome: Progressing Problem: Insufficient exercise regimen Goal: Patient will engage in physical activity safely 11/29/2023146 by Marjorie Paula RN Outcome: Progressing 11/29/2023146 by Marjorie Paula RN Outcome: Progressing Problem: Heart failure progression and care needs Goal: Patient will verbalize understanding of heart failure progression 11/29/2023146 by Marjorie Paula RN Outcome: Progressing 11/29/2023146 by Marjorie Paula RN Outcome: Progressing Problem: Heart failure maintenance Goal: Patient will not experience any symptoms of shortness of breath or body swelling over the next 3 months Outcome: Progressing Problem: Neurosensory - Adult Goal: Achieves stable or improved neurological status Outcome: Progressing Goal: Absence of seizures Outcome: Progressing Goal: Remains free of injury related to seizures activity Outcome: Progressing Goal: Achieves maximal functionality and self care Outcome: Progressing Problem: Respiratory - Adult Goal: Achieves optimal ventilation and oxygenation Outcome: Progressing Flowsheets (Taken 11/28/20232044) Achieves optimal ventilation and oxygenation: Assess for changes in respiratory status Assess for changes in mentation and behavior Position to facilitate oxygenation and minimize respiratory effort Oxygen supplementation based on oxygen saturation or arterial blood gases Initiate smoking cessation protocol as indicated Encourage broncho-pulmo (more content not included)... Normal [facility] BASIC METABOLIC PANELon 05-0 Anion gap [Moles/Vol] 9 mmol/L Normal 7-[address] [facility] Comment on above: Performed By: #### L [id number] ####[facility] (BEAKER)[address] [place] [address] Calcium [Mass/Vol] 8.1 mg/dL Low 8.6-10.3 [facility] Comment on above: Performed By: #### L [id number] ####[facility] (BEAKER)[address] [place] [address] Chloride [Moles/Vol] 106 mmol/L Normal 98-107 [facility] Comment on above: Performed By: #### L [id number] ####[facility] (BEAKER)[address] [place] [address] CO2 [Moles/Vol] 28 mmol/L Normal 21-31 [facility] Comment on above: Performed By: #### L [id number] ####[facility] ([facility])[address] [place] [address] Creatinine [Mass/Vol] 0.78 mg/dL Normal 0.70-1.[address] [facility] Comment on above: Performed By: #### L [id number] ####[facility] ([facility]ER)[address] [place] [address] GLOMERULAR FILTRATION RATE ML/MIN/1.73 SQ M.PREDICTED 94.8 mL/min/1.73m*2 Normal >60.0 [facility] Comment on above: Result Comment: The [facility]???s estimated glomerular filtration rate (eGFR) will no longer include consideration of race in its calculation. The National Kid[employer] Foundation???s eGFR Task Force developed new recommendations for the estimation of the glomerular filtration rate in the [place] They recommend immediate implementation of the new equation refit without the race variable in all laboratories because the calculation does not include race. In addition to not including race in the calculation and reporting, it included diversity in its development, and has acceptable performance characteristics and potential consequences that do not disproportionately affect any one group of individuals. Performed By: #### L [id number] ####[facility] ([facility])[address] [place] [address] Glucose [Mass/Vol] 97 mg/dL Normal 70-100 [facility] Comment on above: Performed By: #### L [id number] ####[facility] ([facility])[address] [place] [address] Potassium [Moles/Vol] 3.5 mmol/L Normal 3.5-5.1 [facility] Comment on above: Performed By: #### L [id number] ####[facility] ([facility])[address] [place] [address] Sodium [Moles/Vol] 139 mmol/L Normal 136-145 [facility] Comment on above: Performed By: #### L [id number] ####[facility] ([facility])[address] [place] [address] Urea nitrogen [Mass/Vol] 25 mg/dL Normal 7-25 [facility] Comment on above: Performed By: #### L [id number] ####[facility] ([facility])[address] [place] [address] UREA NITROGEN/CREATININE (MASS RATIO) IN SER/PLAS 32.1 Normal [facility] Comment on above: Performed By: #### L [id number] ####[facility] ([facility])[address] [place] [address] CBC WITH AUTO DIFFERENTIALon 11-29-2023 Basophils (Bld) [#/Vol] 0.01 10*3/uL Normal 0.00-0.20 [facility] Comment on above: Performed By: #### L [id number] ####[facility] (BEAKER)[address] [place] [address] Basophils/100 WBC (Bld) 0.1 % Normal 0.0-1.0 [facility] Comment on above: Performed By: #### L [id number] ####[facility] ([facility])[address] [place] [address] Eosinophils (Bld) [#/Vol] 0.16 10*3/uL Normal 0.00-0.50 [facility] Comment on above: Performed By: #### L [id number] ####[facility] ([facility])[address] [place] [address] Eosinophils/100 WBC (Bld) 2.1 % Normal 0.0-6.0 [facility] Comment on above: Performed By: #### L [id number] ####[facility] ([facility])[address] [place] [address] Erythrocyte distribution width (RBC) [Ratio] 13.7 % Normal 11.5-15.0 [facility] Comment on above: Performed By: #### L [id number] ####[facility] ([facility])[address] [place] [address] ERYTHROCYTE MEAN CORPUSCULAR HEMOGLOBIN CONCENTRATION (G/DL) BY AUTOMATED 33.2 g/dL Normal 32.0-35.0 [facility] Comment on above: Performed By: #### L [id number] ####[facility] ([facility]AKER)[address] [place] [address] Hematocrit (Bld) [Volume fraction] 28.3 % Low 39.0-55.0 [facility] Comment on above: Performed By: #### L [id number] ####[facility] ([facility]ER)[address] [place] [address] Hemoglobin (Bld) [Mass/Vol] 9.4 g/dL Low 13.0-17.0 [facility] Comment on above: Performed By: #### L [id number] ####[facility] ([facility]AKER)[address] [place] [address] Immature granulocytes (Bld) [#/Vol] 0.05 10*3/uL Normal 0.00-0.20 [facility] Comment on above: Performed By: #### L [id number] ####[facility] ([facility]ER)[address] [place] [address] Immature granulocytes/100 WBC (Bld) 0.7 % Normal 0.0-1.0 [facility] Comment on above: Performed By: #### L [id number] ####[facility] ([facility])[address] [place] [address] IMMATURE PLATELET FRACTION % 3.8 % Normal 0.8-6.3 [facility] Comment on above: Performed By: #### L [id number] ####[facility] ([facility])[address] [facility] [place] [address] Lymphocytes (Bld) [#/Vol] 1.21 10*3/uL Normal 1.20-4.00 [facility] Comment on above: Performed By: #### L [id number] ####[facility] ([facility])[address] [place] [address] Lymphocytes/100 WBC (Bld) 15.8 % Low 20.0-45.0 [facility] Comment on above: Performed By: #### L [id number] ####[facility] ([facility])[address] [place] [address] MCH (RBC) [Entitic mass] 33.9 pg High 27.0-33.0 [facility] Comment on above: Performed By: #### L [id number] ####[facility] (BEAKER)[address] [facility] [address] MCV (RBC) [Entitic vol] 102.2 fL High 82.0-98.0 [facility] Comment on above: Performed By: #### L [id number] ####[facility] HOSPITAL LAB (BEAKER)[address] [place] [address] Monocytes (Bld) [#/Vol] 0.93 10*3/uL Normal 0.10-1.00 [facility] Comment on above: Performed By: #### L [id number] ####[facility] ([facility])[address] [place] [address] Monocytes/100 WBC (Bld) 12.1 % High 5.0-12.0 [facility] Comment on above: Performed By: #### L [id number] ####[facility] ([facility])[address] [place] [address] Neutrophils (Bld) [#/Vol] 5.32 10*3/uL Normal 1.60-7.60 [facility] Comment on above: Performed By: #### L [id number] ####[facility] ([facility])[address] [place] [address] Neutrophils/100 WBC (Bld) 69.2 % Normal 40.0-72.0 [facility] Comment on above: Performed By: #### L [id number] ####[facility] ([facility])[address] [place] [address] NRBC (PER 100 WBCS) BY AUTOMATED COUNT 0.0 % Normal 0 [facility] Comment on above: Performed By: #### L [id number] ####[facility] ([facility])[address] [place] [address] PLATELETS (10*3/UL) IN BLOOD AUTOMATED COUNT 118 10*3/uL Low 150-400 [facility] Comment on above: Performed By: #### L [id number] ####[facility] ([facility])[address] [place] [address] RBC (Bld) [#/Vol] 2.77 10*6/uL Low 4.20-5.70 [facility] Comment on above: Performed By: #### L [id number] ####[facility] (BEAKER)[address] [place] [address] WBC (Bld) [#/Vol] 7.68 10*3/uL Normal 4.00-10.60 [facility] Comment on above: Performed By: #### L [id number] ####[facility] ([facility])[address] [place] [address] MAGNESIUMon 11-29-2023 Magnesium [Mass/Vol] 2.0 mg/dL Normal 1.9-2.7 [facility] Comment on above: Performed By: #### L [id number] ####[facility] ([facility])[address] [place] [address] PHOSPHORUSon 11-29-2023 Magnesium [Mass/Vol] 2.7 mg/dL Normal 2.5-5.0 [facility] Comment on above: Performed By: #### L [id number] #### [facility] ([facility]) [address] [place] [address] 30on 11-28-2023 30 The patient is Moderately Stable - Low risk of patient condition declining or worsening The patient's goals for the shift include COMFORT The clinical goals for the shift include VSS Over the shift, the patient did notmake progress toward the following goals. Barriers to progression include . Recommendations to address these barriers include . Normal [facility] 30 Daily Case Managemen t Update Multidisciplinary rounds have been completed. Barriers to Discharge: Pending medical clearance for discharge. Patient is nearing medical readiness for hospital discharge. PT/OT is recommending SNF placement for this patient, and he is now agreeable. smooth and [employer] worker [employer] has sent referrals. Awaiting accepting facility, and precert. Diet: Dietary Orders (From admission, onward) Start Ordered 11/24/232052 Regular Diet Heart Healthy/HTN, CABG,Stroke, (2gNA, low fat, low cholesterol) Diet effective now Question Answer Comment Room Service? Yes Fat restriction: Heart Healthy/HTN, CABG,Stroke, (2gNA, low fat, low cholesterol) 11/24/232056 Physician Expected Discharge Date: 11/27/2023 Discharge Delays: PT Six Click Score: 12 OT Six Click Score: 16 PT Recommendations: long-term facility placement OT Recommendations: long-term facility placement Does patient understand post acute plan of care? Yes Is expected discharge disposition appropriate for patient?: Yes New Consults: Consult Orders (From admission, onward) Start Ordered 11/24/23 161 Inpatient consult to Trauma Surgery Once Specialty: Trauma Surgery Provider: (Not yet assigned) Question Answer Comment Consulting Group TRAUMA SURGERY TEAM Reason for Consult? humerus fracture Level of Consultation Consultation Only 11/24/23 1610 Therapy Orders (From admission, onward) Start Ordered 11/24/232053 OT eval and treat Until therapy completed Question: Reason for OT? Answer: Trauma 11/24/23205611/24/232053 PT eval and treat Until therapy completed Question: Reason for PT? Answer: Trauma 11/24/232056 Normal [facility] Admission Note-Physicianon 0 11-28-2023 Admission Note-Physician [id number]#[id number] IFF Normal [facility] BASIC METABOLIC PANELon 05 Anion gap [Moles/Vol] 10 mmol/L Normal 7-[address] [facility] Comment on above: Performed By: #### L [id number] #### [facility] (BEAKER) [address] [place] [address] Calcium [Mass/Vol] 8.0 mg/dL Low 8.6-10.3 [facility] Comment on above: Performed By: #### L [id number] #### [facility] (BEAKER) [address] [place] [address] Chloride [Moles/Vol] 105 mmol/L Normal 98-107 [facility] Comment on above: Performed By: #### L [id number] #### [facility] (BEAKER) [address] [place] [address] CO2 [Moles/Vol] 27 mmol/L Normal 21-31 [facility] Comment on above: Performed By: #### L [id number] #### [facility] (BEAKER) [address] [place] [address] Creatinine [Mass/Vol] 1.07 mg/dL Normal 0.70-1.[address] [facility] Comment on above: Performed By: #### L [id number] #### [facility] ([facility]) [address] [address] GLOMERULAR FILTRATION RATE ML/MIN/1.73 SQ M.PREDICTED 73.7 mL/min/1.73m*2 Normal >60.0 [facility] Comment on above: Result Comment: The [facility]???s estimated glomerular filtration rate (eGFR) will no longer include consideration of race in its calculation. The National Kidney Foundation???s eGFR Task Force developed new recommendations for the estimation of the glomerular filtration rate in the [place] They recommend immediate implementation of the new equation refit without the race variable in all laboratories because the calculation does not include race. In addition to not including race in the calculation and reporting, it included diversity in its development, and has acceptable performance characteristics and potential consequences that do not disproportionately affect any one group of individuals. Performed By: #### L [id number] #### [facility] ([facility]) [address] [place] [address] Glucose [Mass/Vol] 84 mg/dL Normal 70-100 [facility] Comment on above: Performed By: #### L [id number] #### [facility] ([facility]) [address] [facility] [place] [address] Potassium [Moles/Vol] 3.3 mmol/L Low 3.5-5.[address] [facility] Comment on above: Performed By: #### L [id number] #### [facility] ([facility]) [address] [facility] [place] [address] Sodium [Moles/Vol] 139 mmol/L Normal 136-145 [facility] Comment on above: Performed By: #### L [id number] #### [facility] ([facility]) [address] [place] [address] Urea nitrogen [Mass/Vol] 31 mg/dL High 7-25 [facility] Comment on above: Performed By: #### L [id number] #### [facility] ([facility]) [address] [place] [address] UREA NITROGEN/CREATININE (MASS RATIO) IN SER/PLAS 29.0 Normal [facility] Comment on above: Performed By: #### L [id number] #### [facility] ([facility]) [address] [place] [address] CBC WITH AUTO DIFFERENTIALon 11-28-2023 Basophils (Bld) [#/Vol] 0.02 10*3/uL Normal 0.00-0.20 [facility] Comment on above: Performed By: #### L [id number] ####[facility] ([facility])[address] [place] [address] Basophils/100 WBC (Bld) 0.3 % Normal 0.0-1.0 [facility] Comment on above: Performed By: #### L [id number] ####[facility] ([facility])[address] [place] [address] Eosinophils (Bld) [#/Vol] 0.20 10*3/uL Normal 0.00-0.50 [facility] Comment on above: Performed By: #### L [id number] ####[facility] ([facility])[address] [place] [address] Eosinophils/100 WBC (Bld) 2.6 % Normal 0.0-6.0 [facility] Comment on above: Performed By: #### L [id number] ####[facility] ([facility])[address] [place] [address] Erythrocyte distribution width (RBC) [Ratio] 13.9 % Normal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 Eyes: PERRL, EOMI. Neurologic: Alert And Oriented to self, place and time. Moving Extremities and Following Commands. CN 2-12 Grossly Intact, GCS 15. Neck: (more content not included)... Normal [facility] LACTIC ACID, PLASMAon 2023 LACTATE (MMOL/L) IN SER/PLAS 0.6 mmol/L Normal 0.5-2.2 [facility] Comment on above: Performed By: #### L [id number] ####[facility] ([facility])[address] [place] [address] LIPASEon 11-24-2023 LIPASE (U/L) IN SER/PLAS 8 U/L Low 11-82 [facility] Comment on above: Performed By: #### L [id number] ####[facility] ([facility])[address] [place] [address] MYOGLOBIN, SERUMon MYOGLOBIN (NG/ML) IN SER/PLAS 103 ng/mL High 0-90 [facility] Comment on above: Result Comment: A DO UBLING OF VALUES FROM SERIAL BLOOD COLLECTIONS (1 - 2 HOURS APART) IS MORE INDICATIVE OF A M.I. THAN THE ABSOLUTE VALUE. Performed By: #### L [id number] ####[facility] ([facility])[address] [place] [address] PROTIME-INRon 11-24-2023 INR IN PPP BY COAGULATION ASSAY 1.06 Normal 0.90-1.10 [facility] Comment on above: Result Comment: [facility] WARFARIN THERAPY CONDITION INR PROPHYLAXIS OF VENOUS THROMBOSIS 2-3 (HIGH-RISK SURGERY) TREATMENT OF VENOUS THROMBOSIS 2-3 TREATMENT OF PULMONARY EMBOLISM 2-3 PREVENTION OF SYSTEMIC EMBOLISM: 2-3 ACUTE MYOCARDIAL INFARCTION TISSUE HEART VALVES VALVULAR HEART DISEASE ATRIAL FIBRILLATION RECURRENT SYSTEMIC EMBOLISM MECHANICAL HEART VALVE 2.5-3.5 FROM: ORAL ANTICOAGULANTS. MECHANISM OF ACTION, CLINICAL EFFECTIVENESS, AND OPTIMAL THERAPEUTIC RANGE. CHEST 1995;108:[id number]. Performed By: #### L [id number] #### [facility] [email or web address]) [address] [place] [address] PROTHROMBIN TIME (PT) IN PPP BY COAGULATION ASSAY 13.8 Seconds Normal 12.3-14.8 [facility] Comment on above: Performed By: #### L [id number] #### [facility] [email or web address]) [address] [place] [address] TOXICOLOGY PANEL URINEon AMPHETAMINE+METHAMPHE TAMINE SCREEN (PRESENCE) IN URINE Negative Normal Negative [facility] Comment on above: Performed By: #### L [id number] #### [facility] [email or web address]) [address] [place] [address] BARBITURATES PRESENCE IN URINE BY SCREEN METHOD Negative Normal Negative [facility] Comment on above: Performed By: #### L [id number] #### [facility] [email or web address]) [address] [place] [address] Benzodiazepines Ql (U) Negative Normal Negative [facility] Comment on above: Performed By: #### L [id number] #### [facility] ([facility]) [address] [place] [address] CANNABINOID (PRESENCE) IN URINE BY SCREEN METHOD Positive Abnormal Negative [facility] Comment on above: Performed By: #### L [id number] #### [facility] ([facility]) [address] [place] [address] Cocaine Ql (U) Negative Normal Negative [facility] Comment on above: Performed By: #### L [id number] #### [facility] ([facility]) [address] [place] [address] METHADONE (PRESENCE) IN URINE BY SCREEN METHOD Negative Normal Negative [facility] Comment on above: Performed By: #### L [id number] #### [facility] ([facility]) [address] [place] [address] OPIATES (PRESENCE) IN URINE BY SCREEN METHOD Positive Abnormal Negative [facility] Comment on above: Performed By: #### L [id number] #### [facility] ([facility]) [address] [place] [address] PHENCYCLIDINE PRESENCE IN URINE BY SCREEN METHOD Negative Normal Negative [facility] Comment on above: Performed By: #### L [id number] #### [facility] ([facility]) [address] [place] [address] Propoxyphene Screen Ql (U) Negative Normal Negative [facility] Comment on above: Performed By: #### L [id number] #### [facility] ([facility]) [address] [place] [address] TRICYCLIC ANTIDEPRESSANTS (PRESENCE) IN URINE Negative Normal Negative [facility] Comment on above: Performed By: #### L [id number] #### [facility] ([facility]) [address] [place] [address] TROPONIN Ion 11-24-2023 Troponin I.cardiac [Mass/Vol] 0.02 ng/mL Normal 0.00-0.04 [facility] Comment on above: Performed By: #### L [id number] ####[facility] ([facility])[address] [place] [address] TYPE AND SCREENon 11-24-2023 AB SCREEN Negative Normal [facility] Comment on above: Performed By: #### L [id number] ####[facility], ABO group Nom (Bld) A Normal [facility] Comment on above: Performed By: #### L [id number] ####[facility], RH TYPE IN BLOOD Positive Normal [facility] Comment on above: Performed By: #### L [id number] ####[facility], URINALYSIS WITH MICROSCOPICo n 11-24-2023 BILIRUBIN, TOTAL PRESENCE IN URINE Negative Normal Negative [facility] Comment on above: Performed By: #### L [id number] #### [facility] ([facility]) [address] [place] [address] Clarity (U) Clear Normal Clear [facility] Comment on above: Performed By: #### L [id number] #### [facility] ([facility]) [address] [place] [address] Color (U) Yellow Normal Yellow [facility] Comment on above: Performed By: #### L [id number] #### [facility] ([facility]) [address] [place] [address] Glucose (U) [Mass/Vol] Negative Normal Negative [facility] Comment on above: Performed By: #### L [id number] #### [facility] ([facility]) [address] [place] [address] HEMOGLOBIN PRESENCE IN URINE Negative Normal Negative [facility] Comment on above: Performed By: #### L [id number] #### [facility] ([facility]) [address] [place] [address] Ketones Ql (U) Negative Normal Negative [facility] Comment on above: Performed By: #### L [id number] #### [facility] ([facility]) [address] [place] [address] LEUKOCYTE ESTERASE PRESENCE IN URINE BY TEST STRIP Negative Normal Negative [facility] Comment on above: Performed By: #### L [id number] #### [facility] ([facility]) [address] [address] MUCUS (#/HPF) IN URINE SEDIMENT Few Normal None Seen, Occasional, Few [facility] Comment on above: Performed By: #### L [id number] #### [facility] ([facility]) [address] [place] [address] NITRITE PRESENCE IN URINE Negative Normal Negative [facility] Comment on above: Performed By: #### L [id number] #### [facility] ([facility]) [address] [place] [address] pH (U) 5.0 [pH] Normal 5.0-8.0 [facility] Comment on above: Performed By: #### L [id number] #### [facility] ([facility]) [address] [place] [address] Protein (U) [Mass/Vol] 30 mg/dL Abnormal Negative [facility] Comment on above: Performed By: #### L [id number] #### [facility] ([facility]) [address] [place] [address] RBC (#/HPF) IN URINE SEDIMENT None Seen Normal None Seen [facility] Comment on above: Performed By: #### L [id number] #### [facility] ([facility]) [address] [place] [address] Specific gravity (U) [Rel density] 1.042 High 1.015-1.020 [facility] Comment on above: Performed By: #### L [id number] #### [facility] ([facility]) [address] [place] [address] SQUAMOUS EPITHELIAL CELLS (#/HPF) IN URINE SEDIMENT Few Abnormal None Seen, Occasional [facility] Comment on above: Performed By: #### L [id number] #### [facility] ([facility]) [address] [place] [address] WBC (LEUKOCYTE) (#/HPF) IN URINE SEDIMENT None Seen Normal None Seen [facility] Comment on above: Performed By: #### L [id number] #### [facility] ([facility]) [address] [place] [address] CBC AUTO DIFFon 11-12-2022 BASO # 0.0 103/ul Normal 0.0-0.1 [facility] Comment on above: Performed By: #### C BC #### [facility] [address] [place] [address] Dr. Toshia Jiang Basophils/100 WBC (Bld) 0.2 % Normal 0.2-2.0 [facility] Comment on above: Performed By: #### C BC #### [facility] [address] [place] [address] Dr. Toshia Jiang EO # 0.0 103/ul Normal 0.0-0.7 [facility] Comment on above: Performed By: #### C BC #### [facility] [address] [place] [address] Dr. Toshia Jiang Eosinophils/100 WBC (Bld) 0.1 % Critically low 0.9-7.0 [facility] Comment on above: Performed By: #### C BC #### [facility] [address] [place] [address] Dr. Toshia Jiang Erythrocyte distribution width (RBC) [Ratio] 14.9 % Normal 11.0-15.0 [facility] Comment on above: Performed By: #### C BC #### [facility] [address] [place] [address] Dr. Toshia Jiang Hematocrit (Bld) [Volume fraction] 40.2 % Critically low 42.0-54.0 [facility] Comment on above: Performed By: #### C BC #### [facility] [address] [place] [address] Dr. Toshia Jiang Hemoglobin (Bld) [Mass/Vol] 13.1 g/dL Critically low 14.0-18.0 [facility] Comment on above: Performed By: #### C BC #### [facility] [address] [place] [address] Dr. Toshia Jiang IG # 0.04 10e3/ul Critically high 0.00-0.03 [facility] Comment on above: Performed By: #### C BC #### [facility] [address] [place] [address] Dr. Toshia Jiang IG % 0.4 % Normal 0.0-0.5 [facility] Comment on above: Performed By: #### C BC #### [facility] [address] [place] [address] Dr. Toshia Jiang LYMPH # 1.6 103/ul Normal 1.2-3.8 [facility] Comment on above: Performed By: #### C BC #### [facility] [address] [place] [address] Dr. Toshia Jiang Lymphocytes/100 WBC (Bld) 17.9 % Critically low 20.5-60.0 [facility] Comment on above: Performed By: #### C BC #### [facility] [address] [place] [address] Dr. Toshia Jiang MANUAL DIFF REQ NO Normal [facility] Comment on above: Performed By: #### C BC #### [facility] [address] [place] [address] Dr. Toshia Jiang MCH (RBC) [Entitic mass] 33.1 pg Normal 25.9-34.0 [facility] Comment on above: Performed By: #### C BC #### [facility] [address] [place] [address] Dr. Toshia Jiang MCHC (RBC) [Mass/Vol] 32.6 g/dL Normal 29.9-35.2 [facility] Comment on above: Performed By: #### C BC #### [facility] [address] [place] [address] Dr. Toshia Jiang MCV (RBC) [Entitic vol] 101.5 fL Critically high 80.0-94.0 [facility] Comment on above: Performed By: #### C BC #### [facility] [address] [place] [address] Dr. Toshia Jiang MONO # 0.6 103/ul Normal 0.3-0.8 [facility] Comment on above: Performed By: #### C BC #### [facility] [address] [place] [address] Dr. Toshia Jiang Monocytes/100 WBC (Bld) 6.2 % Normal 1.7-12.0 [facility] Comment on above: Performed By: #### C BC #### [facility] [address] [place] [address] Dr. Toshia Jiang NEUT # 6.9 103/ul Critically high 1.4-6.5 [facility] Comment on above: Performed By: #### C BC #### [facility] [address] [place] [address] Dr. Toshia Jiang Neutrophils/100 WBC (Bld) 75.2 % Critically high 43.0-75.0 [facility] Comment on above: Performed By: #### C BC #### [facility] [address] [place] [address] Dr. Toshia Jiang Platelet mean volume (Bld) [Entitic vol] 9.9 fL Normal 9.5-13.5 [facility] Comment on above: Performed By: #### C BC #### [facility] [address] [place] [address] Dr. Toshia Jiang PLT 151 103/ul Normal 150-450 [facility] Comment on above: Performed By: #### C BC #### [facility] [address] [place] [address] Dr. Toshia Jiang RBC 3.96 106/ul Critically low 4.70-6.10 [facility] Comment on above: Performed By: #### C BC #### [facility] [address] [place] [address] Dr. Toshia Jiang WBC 9.1 103/ul Normal 4.0-11.0 [facility] Comment on above: Performed By: #### C BC #### [facility] [address] [place] [address] ABD/PELVIS WO CONon 11-12 CT ABD/PELVIS WO CON EXAMINATION: CT ABD/PELVIS WO CON, 11/12/2022 5:25 PM EDT HISTORY: UNSPECIFIED ABDOMINAL PAIN COMPARISON: None. TECHNIQUE: CT scan of the abdomen and pelvis was performed without IV contrast. CT dose reduction technique was used, including Automated Exposure Control. FINDINGS: Several, coarse stones are seen throughout the distal right ureter adjacent to the ureterovesical junction, as well as within the bladder just beyond the junction. The stones in the distal right ureter, when measured together span a length of approximately 1.5 mm. The coarse stone in the bladder is approximately 5 mm. There is moderate right-sided hydroureter and hydronephrosis, and there is right-sided perinephric fat stranding that appears asymmetric. Numerous, additional nonobstructing calyceal stones are seen in the right kidney, and to a lesser degree there are a few scattered nonobstructing stones in the left kidney as well. No left ureteral stone. The prostate gland is mildly enlarged. Small volume free pelvic fluid, likely related to volume status. The liver demonstrates markedly increased attenuation. Hydropic appearance of the gallbladder. The spleen is not enlarged. The adrenal glands are within normal limits. The pancreas is within normal limits. No bowel obstruction. Moderate volume of colonic stool, much of which appears desiccated. Appendix within normal limits. No pathologically enlarged lymph nodes. There is a small fat-containing inguinal hernias. No suspicious lesion in the bones. The lungs have an emphysematous appearance. There is a left lower lobe calcified granuloma. The heart is significantly enlarged, with significantly dilated left ventricle. An AICD lead is seen in the right heart. IMPRESSION: 1. Several small coarse stones are seen in the distal right ureter resulting in moderate right-sided hydroureteronephrosis. A coarsened 5 mm stone is also within the urinary bladder about the right UVJ. 2. Markedly increased attenuation of the liver, may be seen with prolonged amiodarone use or iron overload. 3. Markedly dilated left ventricle of the heart. An AICD lead is in place. 4. Emphysema. Electronically authenticated by: MIKE LUNA Date: 2022-11-12 18:07 Normal [facility] ER URINE PROFILEon 3 Bilirubin Ql (U) Negative Normal NEGATIVE [facility] Comment on above: Performed By: #### E ROHIT HENDERSON #### [facility] [address] [place] [address] Dr. Toshia Jiang Clarity (U) CLEAR Normal CLEAR [facility] Comment on above: Performed By: #### CHRISTINA LUNDRO #### [facility] [address] [place] [address] Dr. Toshia Jiang Color (U) LT. YELLOW Normal YELLOW [facility] Comment on above: Performed By: #### CHRISTINA LUNDRO #### [facility] [address] [place] [address] Dr. Toshia KIDD A micrscopic examination will be performed if indicated. Normal [facility] Comment on above: Performed By: #### CHRISTINA LUNDRO #### [facility] [address] [place] [address] Dr. Toshia Jiang Glucose Ql (U) Negative Normal NEGATIVE [facility] Comment on above: Performed By: #### CHRISTINA LUNDRO #### [facility] [address] [place] [address] Dr. Toshia Jiang Hemoglobin Ql (U) TRACE-INTACT Abnormal NEGATIVE [facility] Comment on above: Performed By: #### CHRISTINA LUNDRO #### [facility] [address] [place] [address] Dr. Toshia Jiang Ketones Ql (U) Negative Normal NEGATIVE [facility] Comment on above: Performed By: #### CHRISTINA LUNDRO #### [facility] [address] [place] [address] Dr. Toshia Jiang LEUKOCYTES Negative Normal NEGATIVE [facility] Comment on above: Performed By: #### INDY LUNDICRO #### [facility] [address] [place] [address] Dr. Toshia Jiang Nitrite Ql (U) Negative Normal NEGATIVE [facility] Comment on above: Performed By: #### Parvin HENDERSON UMICRO #### [facility] [address] [place] [address] Dr. Toshia Jiang pH (U) 5.5 [pH] Normal 5-9 [facility] Comment on above: Performed By: #### E RUR, UMICRO #### [facility] [address] [place] [address] Dr. Toshia Jiang Protein (U) [Mass/Vol] 30 mg/dL Abnormal NEGATIVE/ TRACE [facility] Comment on above: Performed By: #### E BEATRIZ, UMICRO #### [facility] [address] [place] [address] Dr. Toshia Jiang SPEC GRAVITY 1.030 Abnormal 1.005-<=1.025 [facility] Comment on above: Performed By: #### E BEATRIZ, UMICRO #### [facility] [address] [place] [address] Dr. Toshia Jiang UR MICRO IND INDICATED Normal [facility] Comment on above: Performed By: #### E BEATRIZ, UMICRO #### [facility] [address] [place] [address] Dr. Toshia Jiang Urobilinogen Qn (U) 0.2 {Nilson'U}/dL Normal 0.2 - 1. 0 [facility] Comment on above: Performed By: #### Parvin HENDERSON, ICRO #### [facility] [address] [place] [address] Dr. Toshia Jiang LIPASEon 11-12-2022 Lipase [Catalytic activity/Vol] 60.0 U/L Critically low 73.0-393.0 [facility] Comment on above: Performed By: #### L IPA, CMP #### [facility] [address] [place] [address] Dr. Toshia Jiang PROF 14(COMP METB)on 023 Albumin [Mass/Vol] 3.5 g/dL Normal 3.4-5.0 [facility] Comment on above: Performed By: #### L IPA, CMP #### [facility] [address] [place] [address] Dr. Toshia Jiang Albumin/Globulin [Mass ratio] 0.9 {ratio} Normal [facility] Comment on above: Performed By: #### L IPA, CMP #### [facility] [address] [place] [address] Dr. Toshia Jiang ALP [Catalytic activity/Vol] 71 U/L Normal 46-116 [facility] Comment on above: Performed By: #### L IPA, CMP #### [facility] [address] [address] [address] Toshia Jiang ALT [Catalytic activity/Vol] 32 U/L Normal 16-63 [facility] Comment on above: Performed By: #### L IPA, CMP #### [facility] [address] [address] [address] Toshia Jiang Anion gap [Moles/Vol] 15.7 mmol/L Normal [facility] Comment on above: Performed By: #### L IPA, CMP #### [facility] [address] [place] [address] Dr. Toshia Jiang AST [Catalytic activity/Vol] 33 U/L Normal 15-37 [facility] Comment on above: Performed By: #### L IPA, CMP #### [facility] [address] [address] [address] Toshia Jiang Bilirubin [Mass/Vol] 0.4 mg/dL Normal 0.2-1.0 [facility] Comment on above: Performed By: #### L IPA, CMP #### [facility] [address] [place] [address] Dr. Toshia Jiang Calcium [Mass/Vol] 8.6 mg/dL Normal 8.5-10.1 [facility] Comment on above: Performed By: #### L IPA, CMP #### [facility] [address] [address] [address] Toshia Jiang Chloride [Moles/Vol] 107 mmol/L Normal 98-107 [facility] Comment on above: Performed By: #### L IPA, CMP #### [facility] [address] [address] [address] Toshia Jiang CO2 [Moles/Vol] 20.1 mmol/L Critically low 21.0-32.0 [facility] Comment on above: Performed By: #### L IPA, CMP #### [facility] [address] [address] [address] Toshia Jiang Creatinine [Mass/Vol] 1.52 mg/dL Critically high 0.70-1.30 [facility] Comment on above: Performed By: #### L IPA, CMP #### [facility] [address] [address] [address] Toshia Jiang EGFR-AF AFGHAN 55 mL/min/1.73m2 Critically low >=60 [facility] Comment on above: Performed By: #### L IPA, CMP #### [facility] [address] [address] [address] Toshia Jiang EGFR-NON AF AFGHAN 45 mL/min/1.73m2 Critically low >=60 [facility] Comment on above: Performed By: #### L IPA, CMP #### [facility] [address] [place] [address] Dr. Toshia Jiang Globulin (S) [Mass/Vol] 3.7 g/dL Normal [facility] Comment on above: Performed By: #### L IPA, CMP #### [facility] [address] [place] [address] Dr. Toshia Jiang Glucose [Mass/Vol] 128 mg/dL Critically high 74-106 [facility] Comment on above: Performed By: #### L IPA, CMP #### [facility] [address] [place] [address] Dr. Toshia Jiang Potassium [Moles/Vol] 3.8 mmol/L Normal 3.5-5.1 [facility] Comment on above: Performed By: #### L IPA, CMP #### [facility] [address] [place] [address] Dr. Toshia Jiang Protein [Mass/Vol] 7.2 g/dL Normal 6.4-8.2 [facility] Comment on above: Performed By: #### L IPA, CMP #### [facility] [address] [place] [address] Dr. Toshia Jiang Sodium [Moles/Vol] 139 mmol/L Normal 136-145 [facility] Comment on above: Performed By: #### L IPA, CMP #### [facility] [address] [place] [address] Dr. Toshia Jiang Urea nitrogen [Mass/Vol] 12.0 mg/dL Normal 7.0-18.0 [facility] Comment on above: Performed By: #### L TAYO, CMP #### [facility] [address] [address] [address] Toshia Jiang Urea nitrogen/Creatinine [Mass ratio] 7.9 mg/mg Normal [facility] Comment on above: Performed By: #### L TAYO, CMP #### [facility] [address] [address] [address] Toshia Jiang URINE MICROSCOPIC ONLYon BACTERIA NONE SEEN Normal NONE SEEN [facility] Comment on above: Performed By: #### CHRISTINA LUNDRO ####[facility] [id number] [address]Dr. Toshia Jiang Bacteria identified Cx Nom (U) NOT INDICATED Normal [facility] Comment on above: Performed By: #### CHRISTINA LUNDRO ####[facility] [id number] [place] [address] [address]Dr. Toshia Jiang CAST NONE SEEN Normal NONE SEEN [facility] Comment on above: Performed By: #### CHRISTINA LUNDRO ####[facility] [id number] [place] [address] [address]Dr. Toshia Jiang Crystals LM Nom (Urine sed) NONE SEEN Normal NONE SEEN [facility] Comment on above: Performed By: #### CHRISTINA LUNDRO ####[facility] [id number] [place] [address] [address]Dr. Toshia Jiang Epithelial cells LM Ql (Urine sed) RARE Normal NONE SEEN /RARE [facility] Comment on above: Performed By: #### CHRISTINA LUNDRO ####[facility] [id number] [place] [address] [address]Dr. Toshia Jiang MUCOUS NONE SEEN Normal NONE SEEN [facility] Comment on above: Performed By: #### Parvin HENDERSON UMICRO ####[facility] [id number] [place] [address] [address]Dr. Toshia Jiang RBC 0-2 Normal 0-2 [facility] Comment on above: Performed By: #### E RURROHIT ####[facility] [id number] [place], [place] [address]Ky. Toshia Jiang WBC NONE SEEN Normal NONE SEEN [facility] Comment on above: Performed By: #### E RURROHIT ####[facility] [id number] [place], [place] [address]Qd. Toshia Jiang Basophils Auto (Bld) [#/Vol] Ordered By: Elizabeth Ramey on 07-12-2022 Basophils (Bld) [#/Vol] 0.0 10*3/uL 0.0-0.2 [facility] Basophils/100 WBC Auto (Bld) Ordered By: Elizabeth Ramey on 07-12-2022 Basophils/100 WBC (Bld) 0.5 % . [facility] Creatinine and Glomerular fi ltration rate.predicted panel (S/P/Bld)Ordered By: Elizabeth Ramey on 07-12-2022 Creatinine [Mass/Vol] 1.15 mg/dL 0.64-1.27 [facility] Eosinophils Auto (Bld) [#/Vo l]Ordered By: Elizabeth Ramey on 07-12-2022 Eosinophils (Bld) [#/Vol] 0.1 10*3/uL 0.0-0.45 [facility] Eosinophils/100 WBC Auto (Bl d)Ordered By: Elizabeth Ramey on 07-12-2022 Eosinophils/100 WBC (Bld) 1.2 % . [facility] Erythrocyte distribution wid th Auto (RBC) [Ratio]Ordered By: Elizabeth Ramey on 07-12-2022 Erythrocyte distribution width (RBC) [Ratio] 13.4 % 12.0-14.8 [facility] Estimated glomerular filtrat ion rate (GFR) non- AmericanOrdered By: Elizabeth Ramey on 07-12-2022 GFR/1.73 sq M.predicted among non-blacks MDRD (S/P/Bld) [Vol rate/Area] > 60 mL/Min [facility] Hematocrit Auto (Bld) [Volum e fraction]Ordered By: Elizabeth Ramey on 07-12-2022 Hematocrit (Bld) [Volume fraction] 30.6 % 38.8-50.0 [facility] Hemoglobin [Mass/volume] in BloodOrdered By: Elizabeth Ramey on 07-12-2022 Hemoglobin (Bld) [Mass/Vol] 10.4 g/dL 13.0-17.0 [facility] Leukocytes [#/volume] correc rosemary for nucleated erythrocytes in Blood by Automated counOrdered By: Elizabeth Ramey on 07-12-2022 WBC corrected for nucl RBC Auto (Bld) [#/Vol] 6.3 10*3/uL 4.1-10.5 [facility] Lymphocytes Auto (Bld) [#/Vo l]Ordered By: Elizabeth Ramey on 07-12-2022 Lymphocytes (Bld) [#/Vol] 1.9 10*3/uL 1.00-4.8 [facility] Lymphocytes/100 WBC Auto (Bl d)Ordered By: Elizabeth Ramey on 07-12-2022 Lymphocytes/100 WBC (Bld) 30.0 % . [facility] MCH Auto (RBC) [Entitic mass ]Ordered By: Elizabeth Ramey on 07-12-2022 MCH (RBC) [Entitic mass] 33.3 pg 27.5-35.2 [facility] MCHC Auto (RBC) [Mass/Vol]Or dered By: Elizabeth Ramey on 07-12-2022 MCHC (RBC) [Mass/Vol] 34.1 g/dL 32.5-35.6 [facility] MCV Auto (RBC) [Entitic vol] Ordered By: Elizabeth Ramey on 07-12-2022 MCV (RBC) [Entitic vol] 97.5 fL 83.5-101 [facility] Monocytes Auto (Bld) [#/Vol] Ordered By: Elizabeth Ramey on 07-12-2022 Monocytes (Bld) [#/Vol] 0.6 10*3/uL 0.0-0.8 [facility] Monocytes/100 WBC Auto (Bld) Ordered By: Elizabeth Ramey on 07-12-2022 Monocytes/100 WBC (Bld) 9.3 % . [facility] Neutrophils Auto (Bld) [#/Vo l]Ordered By: Elizabeth Ramey on 07-12-2022 Neutrophils (Bld) [#/Vol] 3.7 10*3/uL 1.8-7.7 [facility] Neutrophils/100 WBC Auto (Bl d)Ordered By: Elizabeth Ramey on 07-12-2022 Neutrophils/100 WBC (Bld) 59.0 % . [facility] No Panel InformationOrdered By: Elizabeth Ramey on 07-12-2022 Estimated GFR () > 60 mL/Min [facility] Comment on above: GFR estimated refere nce range: According to KDOQI guidelines, <60 ml/min/1.73m2 is sufficient to diagnose a patient with chronic kidney disease. Pharmacy Creatinine Clearance (Chem 47.75 [facility] Nucleated erythrocytes [Pres ence] in Blood by Automated countOrdered By: Elizabeth Ramey on 07-12-2022 Nucleated RBC Auto Ql (Bld) 0.1 /100{WBC} 0-0.5 [facility] Platelet mean volume Auto (B ld) [Entitic vol]Ordered By: Elizabeth Ramey on 07-12-2022 Platelet mean volume (Bld) [Entitic vol] 9.2 fL 6.6-10.1 [facility] Platelets Auto (Bld) [#/Vol] Ordered By: Elizabeth Ramey on 07-12-2022 Platelets (Bld) [#/Vol] 103 10*3/uL 150-450 [facility] RBC Auto (Bld) [#/Vol]Ordere d By: Elizabeth Ramey on 07-12-2022 RBC (Bld) [#/Vol] 3.14 10*6/uL 3.90-5.60 [facility] Serum or plasma anion gap de terminationOrdered By: Elizabeth Ramey on 07-12-2022 Anion gap [Moles/Vol] 7.7 mmol/L 6.0-15.0 [facility] Serum or plasma calcium delfino urement (mass/volume)Ordered By: Elizabeth Ramey on 07-12-2022 Calcium [Mass/Vol] 8.2 mg/dL 8.2-10.2 [facility] Serum or plasma chloride syed surement (moles/volume)Ordered By: Elizabeth Ramey on 07-12-2022 Chloride [Moles/Vol] 110 mmol/L 95-114 [facility] Serum or plasma glucose delfino urement (mass/volume)Ordered By: Elizabeth Ramey on 07-12-2022 Glucose [Mass/Vol] 102 mg/dL 70-100 [facility] Comment on above: ADA recommended refe rence rangeRandom Glucose Reference Range is dependent on time and content of last meal. Glucose of more than 200 mg/dL in a nonstressed, ambulatory subject supports the diagnosis of Diabetes Mellitus. Serum or plasma potassium me asurement (moles/volume)Ordered By: Elizabeth Ramey on 07-12-2022 Potassium [Moles/Vol] 3.7 mmol/L 3.5-5.1 [facility] Serum or plasma sodium measu rement (moles/volume)Ordered By: Elizabeth Ramey on 07-12-2022 Sodium [Moles/Vol] 135 mmol/L 136-146 [facility] Serum or plasma total carbon dioxide measurement (moles/volume)Ordered By: Elizabeth Ramey on 07-12-2022 CO2 [Moles/Vol] 21.0 mmol/L 22.0-30.0 [facility] Serum or plasma urea nitroge n measurement (mass/volume)Ordered By: Elizabeth Ramey on 07-12-2022 Urea nitrogen [Mass/Vol] 9 mg/dL 9-23 [facility] WBC Auto (Bld) [#/Vol]Ordere d By: Elizabeth Ramey on 07-12-2022 WBC (Bld) [#/Vol] 6.3 10*3/uL 4.1-10.5 [facility] Creatinine [Mass/volume] in UrineOrdered By: Elizabeth Ramey on 07-11-2022 Creatinine (U) [Mass/Vol] 83.2 mg/dL [facility] Comment on above: No reference range e stablished Urine sodium measurement (mo les/volume)Ordered By: Elizabeth Ramey on 07-11-2022 Sodium (U) [Moles/Vol] 111 mmol/L [facility] Comment on above: No reference range e stablished Activated partial thrombopla stin time (aPTT) in platelet poor plasma by coagulation aOrdered By: Tomás Roche on 2022 aPTT Coag (PPP) [Time] 28.8 s 25.1-36.5 [facility] Amphetamine Screen Ql (U)Ord ered By: Tomás Roche on 2022 Amphetamines Ql (U) Negative Negative [facility] Barbiturates [Presence] in U rineOrdered By: Tomás Roche on 2022 Barbiturates Ql (U) Negative Negative [facility] Basophils Auto (Bld) [#/Vol] Ordered By: Tomás Roche on 2022 Basophils (Bld) [#/Vol] 0.0 10*3/uL 0.0-0.2 [facility] Basophils/100 WBC Auto (Bld) Ordered By: Tomás Roche on 2022 Basophils/100 WBC (Bld) 0.6 % . [facility] Benzodiazepines [Presence] i n UrineOrdered By: Tomás Roche on 2022 Benzodiazepines Ql (U) Negative Negative [facility] Body fluid albumin measureme nt (mass/volume)Ordered By: Tomás Roche on 2022 Albumin (Body fld) [Mass/Vol] 3.5 g/dL 3.2-5.5 [facility] COVID CepheidOrdered By: Joseline Roche on 2022 SARS-CoV-2 (COVID-19) Ab IA Ql Negative Negative [facility] Comment on above: This is a duplicate [employer] Xpert Xpress CoV-2/Flu/RSV Plus RNA by RT-PCR result to be used for statistical tracking purpose only. SARS-CoV-2 (COVID-19) RNA KERRIE+probe Ql (Unsp spec) [facility] Cannabinoids [Presence] in U rine by Screen methodOrdered By: Tomás Roche on 2022 Cannabinoids Screen Ql (U) Positive Negative [facility] Comment on above: These are unconfirme d results and should not be used for legal purposes. Drug Cut-Off Concentration: AMPH 1000 ng/mL NOE 200 ng/mL JACKI 200 ng/mL COCM 300 ng/mL OP 300 ng/mL PCP 25 ng/mL THC 20 ng/mL Creatine kinase [Enzymatic a ctivity/volume] in Serum or PlasmaOrdered By: Tomás Roche on 2022 CK [Catalytic activity/Vol] 96 U/L 22-269 [facility] Creatinine and Glomerular fi ltration rate.predicted panel (S/P/Bld)Ordered By: Tomás Roche on 2022 Creatinine [Mass/Vol] 2.28 mg/dL 0.64-1.27 [facility] Eosinophils Auto (Bld) [#/Vo l]Ordered By: Tomás Roche on 2022 Eosinophils (Bld) [#/Vol] 0.0 10*3/uL 0.0-0.45 [facility] Eosinophils/100 WBC Auto (Bl d)Ordered By: Tomás Roche on 2022 Eosinophils/100 WBC (Bld) 0.6 % . [facility] Erythrocyte distribution wid th Auto (RBC) [Ratio]Ordered By: Tomás Roche on 2022 Erythrocyte distribution width (RBC) [Ratio] 13.2 % 12.0-14.8 [facility] Estimated glomerular filtrat ion rate (GFR) non- AmericanOrdered By: Tomás Roche on 2022 GFR/1.73 sq M.predicted among non-blacks MDRD (S/P/Bld) [Vol rate/Area] 28 mL/Min [facility] Globulin Calc (S) [Mass/Vol] Ordered By: Tomás Roche on 2022 Globulin (S) [Mass/Vol] 2.9 g/dL [facility] Hematocrit Auto (Bld) [Volum e fraction]Ordered By: Tomás Roche on 2022 Hematocrit (Bld) [Volume fraction] 36.7 % 38.8-50.0 [facility] Hemoglobin [Mass/volume] in BloodOrdered By: Tomás Roche on 2022 Hemoglobin (Bld) [Mass/Vol] 12.2 g/dL 13.0-17.0 [facility] Laboratory - Chemistry and C hemistry - challengeOrdered By: Tomás Roche on 2022 Magnesium [Mass/Vol] 2.1 mg/dL 1.6-2.6 [facility] Natriuretic peptide B (Bld) [Mass/Vol] 221.0 pg/mL 5-100 [facility] Laboratory - CoagulationOrde red By: Tomás Roche on 2022 PT Coag (PPP) [Time] 11.9 s 9.0-12.9 [facility] Laboratory - Drug toxicology Ordered By: Toáms Roche on 2022 Opiates Ql (U) Negative Negative [facility] Leukocytes [#/volume] correc rosemary for nucleated erythrocytes in Blood by Automated counOrdered By: Tomás Roche on 2022 WBC corrected for nucl RBC Auto (Bld) [#/Vol] 6.8 10*3/uL 4.1-10.5 [facility] Lymphocytes Auto (Bld) [#/Vo l]Ordered By: Tomás Roche on 2022 Lymphocytes (Bld) [#/Vol] 1.4 10*3/uL 1.00-4.8 [facility] Lymphocytes/100 WBC Auto (Bl d)Ordered By: Tomás Roche on 2022 Lymphocytes/100 WBC (Bld) 20.4 % . [facility] MCH Auto (RBC) [Entitic mass ]Ordered By: Tomás Roche on 2022 MCH (RBC) [Entitic mass] 33.0 pg 27.5-35.2 [facility] MCHC Auto (RBC) [Mass/Vol]Or dered By: Tomás Roche on 2022 MCHC (RBC) [Mass/Vol] 33.3 g/dL 32.5-35.6 [facility] MCV Auto (RBC) [Entitic vol] Ordered By: Tomás Roche on 2022 MCV (RBC) [Entitic vol] 99.2 fL 83.5-101 [facility] Monocyte distribution width [Entitic volume] in Blood by AutomatedOrdered By: Tomás Roche on 2022 Monocyte distribution width Auto (Bld) [Entitic vol] 15.55 % 0.00-20.00 [facility] Monocytes Auto (Bld) [#/Vol] Ordered By: Tomás Roche on 2022 Monocytes (Bld) [#/Vol] 0.5 10*3/uL 0.0-0.8 [facility] Monocytes/100 WBC Auto (Bld) Ordered By: Tomás Roche on 2022 Monocytes/100 WBC (Bld) 6.9 % . [facility] Neutrophils Auto (Bld) [#/Vo l]Ordered By: Tomás Roche on 2022 Neutrophils (Bld) [#/Vol] 4.9 10*3/uL 1.8-7.7 [facility] Neutrophils/100 WBC Auto (Bl d)Ordered By: Tomás Roche on 2022 Neutrophils/100 WBC (Bld) 71.5 % . [facility] No Panel InformationOrdered By: Tomás Roche on 2022 Estimated GFR () 34 mL/Min [facility] Comment on above: GFR estimated refere nce range: According to KDOQI guidelines, <60 ml/min/1.73m2 is sufficient to diagnose a patient with chronic kidney disease. Pharmacy Creatinine Clearance (Chem 24.00 [facility] Nucleated erythrocytes [Pres ence] in Blood by Automated countOrdered By: Tomás Roche on 2022 Nucleated RBC Auto Ql (Bld) 0.1 /100{WBC} 0-0.5 [facility] Phencyclidine Screen Ql (U)O rdered By: Tomás Roche on 2022 Phencyclidine Ql (U) Negative Negative [facility] Platelet mean volume Auto (B ld) [Entitic vol]Ordered By: Tomás Roche on 2022 Platelet mean volume (Bld) [Entitic vol] 9.2 fL 6.6-10.1 [facility] Platelet poor plasma interna tional normalized ratio (INR) by coagulation assay (relatOrdered By: Tomás Roche on 2022 INR Coag (PPP) [Relative time] 1.1 {INR} [facility] Comment on above: INR Therapeutic Rang e A) Pre- and Peroperative OAT started two weeks before surgery. NOT HIP SURGERY: 1.5 - 2.5 HIP SURGERY: 2 - 3B) Primary and secondary prevention of venous THROMBOSIS: 2 - 3C) Active venous thrombosis, pulmonary embolismand prevention of recurrent venous thrombosis: 2 - 3D) Prevention of arterial thromboembolismincluding patients with mechanical heart valves: 3 - 4.5 Platelets Auto (Bld) [#/Vol] Ordered By: Tomás Roche on 2022 Platelets (Bld) [#/Vol] 136 10*3/uL 150-450 [facility] Protein [Mass/volume] in Ser um or PlasmaOrdered By: Tomás Roche on 2022 Protein [Mass/Vol] 6.4 g/dL 6.1-7.9 [facility] RBC Auto (Bld) [#/Vol]Ordere d By: Tomás Roche on 2022 RBC (Bld) [#/Vol] 3.70 10*6/uL 3.90-5.60 [facility] Serum or plasma alanine henry otransferase measurement without P-5'-P (enzymatic activiOrdered By: Tomás Roche on 2022 ALT No additional P-5'-P [Catalytic activity/Vol] 44 U/L 1060 [facility] Serum or plasma albumin/glob ulin mass ratioOrdered By: Tomás Roche on 2022 Albumin/Globulin [Mass ratio] 1.2 {ratio} [facility] Serum or plasma alkaline everett sphatase measurement (enzymatic activity/volume)Ordered By: Tomás Roche on 2022 ALP [Catalytic activity/Vol] 55 U/L 32-92 [facility] Serum or plasma anion gap de terminationOrdered By: Tomás Roche on 2022 Anion gap [Moles/Vol] 15.3 mmol/L 6.0-15.0 [facility] Serum or plasma aspartate am inotransferase measurement (enzymatic activity/volume)Ordered By: Tomás Roche on 2022 AST [Catalytic activity/Vol] 37 U/L 1042 [facility] Serum or plasma calcium delfino urement (mass/volume)Ordered By: Tomás Roche on 2022 Calcium [Mass/Vol] 8.4 mg/dL 8.2-10.2 [facility] Serum or plasma chloride syed surement (moles/volume)Ordered By: Tmoás Roche on 2022 Chloride [Moles/Vol] 105 mmol/L 95-114 [facility] Serum or plasma creatine kin ase MB (CKMB)/total creatine kinase (CK) ratio by calculaOrdered By: Tomás Roche on 2022 CK.MB Calc [Catalytic fraction] 2.8 % 0.00-2.50 [facility] Serum or plasma creatine kin ase MB measurement (mass/volume)Ordered By: Tomás Roche on 2022 CK.MB [Mass/Vol] 2.7 ng/mL 0.6-6.3 [facility] Serum or plasma glucose delfino urement (mass/volume)Ordered By: Tomás Roche on 2022 Glucose [Mass/Vol] 115 mg/dL 70-100 [facility] Comment on above: ADA recommended refe rence rangeRandom Glucose Reference Range is dependent on time and content of last meal. Glucose of more than 200 mg/dL in a nonstressed, ambulatory subject supports the diagnosis of Diabetes Mellitus. Serum or plasma potassium me asurement (moles/volume)Ordered By: Tomás Roche on 2022 Potassium [Moles/Vol] 4.0 mmol/L 3.5-5.1 [facility] Serum or plasma sodium measu rement (moles/volume)Ordered By: Tomás Roche on 2022 Sodium [Moles/Vol] 135 mmol/L 136-146 [facility] Serum or plasma total biliru bin measurement (mass/volume)Ordered By: Tomás Roche on 2022 Bilirubin [Mass/Vol] 0.6 mg/dL 0.3-1.2 [facility] Serum or plasma total carbon dioxide measurement (moles/volume)Ordered By: Tomás Roche on 2022 CO2 [Moles/Vol] 18.7 mmol/L 22.0-30.0 [facility] Serum or plasma urea nitroge n measurement (mass/volume)Ordered By: Tomás Roche on 2022 Urea nitrogen [Mass/Vol] 20 mg/dL 9-23 [facility] TSH DL <= 0.005 mIU/L QnOrde red By: Tomás Roche on 2022 TSH Qn 0.96 m[IU]/L 0.45-5.33 [facility] Troponin I.cardiac [Mass/vol ume] in Serum or Plasma by High sensitivity methodOrdered By: Tomás Roche on 2022 Troponin I.cardiac High sensitivity method [Mass/Vol] 11 pg/mL 0-20 [facility] Urine cocaine detectionOrder ed By: Tomás Roche on 2022 Cocaine Ql (U) Negative Negative [facility] WBC Auto (Bld) [#/Vol]Ordere d By: Tomás Roche on 2022 WBC (Bld) [#/Vol] 6.8 10*3/uL 4.1-10.5 [facility] PROF CHEM 8 (BAS METB)on Anion gap [Moles/Vol] 9.2 mmol/L Normal [facility] Comment on above: Performed By: #### B MP #### [facility] [address] [place] [address] Dr. Toshia Jiang Calcium [Mass/Vol] 8.5 mg/dL Normal 8.5-10.1 [facility] Comment on above: Performed By: #### B MP #### [facility] [address] [address] [address] Toshia Jiang Chloride [Moles/Vol] 103 mmol/L Normal 98-107 [facility] Comment on above: Performed By: #### B MP #### [facility] [address] [address] [address] Toshia Jiang CO2 [Moles/Vol] 29.3 mmol/L Normal 21.0-32.0 [facility] Comment on above: Performed By: #### B MP #### [facility] [address] [address] [address] Toshia Jiang Creatinine [Mass/Vol] 1.12 mg/dL Normal 0.70-1.30 [facility] Comment on above: Performed By: #### B MP #### [facility] [address] [address] [address] Toshia Jiang EGFR-AF AFGHAN >60 Normal >=60 [facility] Comment on above: Performed By: #### B MP #### [facility] [address] [address] [address] Toshia Jiang EGFR-NON AF AFGHAN >60 Normal >=60 [facility] Comment on above: Performed By: #### B MP #### [facility] [address] [address] [address] Toshia Jiang Glucose [Mass/Vol] 109 mg/dL Critically high 74-106 [facility] Comment on above: Performed By: #### B MP #### [facility] [address] [place] [address] Dr. Toshia Jiang Potassium [Moles/Vol] 3.5 mmol/L Normal 3.5-5.1 [facility] Comment on above: Performed By: #### B MP #### [facility] [address] [place] [address] Dr. Toshia Jiang Sodium [Moles/Vol] 138 mmol/L Normal 136-145 [facility] Comment on above: Performed By: #### B MP #### [facility] [address] [place] [address] Dr. Toshia Jiang Urea nitrogen [Mass/Vol] 12.0 mg/dL Normal 7.0-18.0 [facility] Comment on above: Performed By: #### B MP #### [facility] [address] [place] [address] Dr. Toshia Jiang Urea nitrogen/Creatinine [Mass ratio] 10.7 mg/mg Normal [facility] Comment on above: Performed By: #### B MP #### [facility] [address] [place] [address] Dr. Toshia Jiang PROF CHEM 8 (BAS METB)on Anion gap [Moles/Vol] 9.0 mmol/L Normal [facility] Comment on above: Performed By: #### B MP #### [facility] [address] [place] [address] Dr. Toshia Jiang Calcium [Mass/Vol] 8.4 mg/dL Critically low 8.5-10.1 Th e [facility] Comment on above: Performed By: #### B MP #### [facility] [address] [address] [address] Toshia Jiang Chloride [Moles/Vol] 103 mmol/L Normal 98-107 [facility] Comment on above: Performed By: #### B MP #### [facility] [address] [address] [address] Toshia Jiang CO2 [Moles/Vol] 32.1 mmol/L Critically high 21.0-32.0 [facility] Comment on above: Performed By: #### B MP #### [facility] [address] [place] [address] Dr. Toshia Jiang Creatinine [Mass/Vol] 1.03 mg/dL Normal 0.70-1.30 [facility] Comment on above: Performed By: #### B MP #### [facility] [address] [place] [address] Dr. Toshia Jiang EGFR-AF AFGHAN >60 Normal >=60 [facility] Comment on above: Performed By: #### B MP #### [facility] [address] [place] [address] Dr. Toshia Jiang EGFR-NON AF AFGHAN >60 Normal >=60 [facility] Comment on above: Performed By: #### B MP #### [facility] [address] [place] [address] Dr. Toshia Jiang Glucose [Mass/Vol] 103 mg/dL Normal 74-106 [facility] Comment on above: Performed By: #### B MP #### [facility] [address] [place] [address] Dr. Toshia Jiang Potassium [Moles/Vol] 3.1 mmol/L Critically low 3.5-5.1 [facility] Comment on above: Performed By: #### B MP #### [facility] [address] [place] [address] Dr. Toshia Jiang Sodium [Moles/Vol] 141 mmol/L Normal 136-145 [facility] Comment on above: Performed By: #### B MP #### [facility] [address] [place], [place] [address] Dr. Toshia Jiang Urea nitrogen [Mass/Vol] 11.0 mg/dL Normal 7.0-18.0 [facility] Comment on above: Performed By: #### B MP #### [facility] [address] [place], [place] [address] Dr. Toshia Jiang Urea nitrogen/Creatinine [Mass ratio] 10.7 mg/mg Normal [facility] Comment on above: Performed By: #### B MP #### [facility] [address] [place], [place] [address] Dr. Toshia Jiang ECHOCARDIO M/2D COMPLETEon 0 03-03-2022 ECHOCARDIO M/2D COMPLETE Patient: DUNG COFFMAN Exam Date: 03/03/2022 : 1950 Gender:M Ordering : ABBY PALOMO [facility] Admission #: [id number] Family : DR EVARISTO TAVARES . Order #: [id number] CLICK HERE TO VIEW EXAM ECHOCARDIOGRAM REPORT PROCEDURE: CARDIO PULMONARY ECHOCARDIO M/2D COMP INDICATIONS: Chronic systolic heart failure, AICD, H/O 4 myocardial infarctions, 7 stents COMPARISON: None. DESCRIPTION: COMPLETE ECHOCARDIOGRAM Real-time transthoracic echocardiography with 2D, M-mode, spectral and color flow Doppler performed. QUALITY: Technical quality was limited because of lung artifact. 65 138# 98/50 HR 50 LEFT VENTRICLE: Moderate dilatation. Mild concentric left ventricular hypertrophy. Global left ventricular systolic function is severely reduced with regional wall motion abnormalities. 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 The mid ventricular segments are hypokinetic. LV EF: Visual estimation of left ventricular ejection fraction is 25%. DIASTOLIC: Diastolic function is indeterminate. ATRIAL SEPTUM: LEFT ATRIUM: Mild dilatation. RIGHT ATRIUM: Mild dilatation. RIGHT VENTRICLE: Normal chamber size. Normal right ventricular systolic function. Pacer wire present. TRICUSPID VALVE: Normal mobility and thickness. No stenosis with mild regurgitation. No evidence of pulmonary hypertension. RVSP 31 mmHg MITRAL VALVE: Normal mobility and thickness. No evidence of mitral valve stenosis. Trivial mitral regurgitation. AORTIC VALVE: Normal trileaflet appearance. No evidence of aortic valve stenosis. Mild aortic valve sclerosis. Trivial aortic regurgitation. AORTIC ROOT: PULMONIC VALVE: Normal thickness and mobility. No stenosis. Trivial regurgitation. PERICARDIUM: No evidence of pericardial effusion. IVC: Collapses with inspirations. IVC is normal in size. PLEURA: CONCLUSION: 1. The ventricular systolic function is severely reduced with segmental wall motion abnormalities. LVEF is 25%. 2. Normal right ventricular size and function. 3. Mild tricuspid regurgitation. 4. Normal right-sided pressures. 5. 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 No evidence of ventricular thrombus seen. Adult Echocardiography Procedure Report Left Ventricle Left Atrium Mitral Valve Right Ventricle Aorta Aortic Valve Peak Velocity (Antegrade Flow): 1.32 m/s AoV Area (Peak Ari): 2.36 cm2, 2.36 cm2 Peak Velocity(Antegrade Flow): 1.32 m/s Peak Gradient(Antegrade Flow): 6.92 mm[Hg] Tricuspid Valve Peak Velocity (Regurgitant Flow): 2.43 m/s, 3.64 m/s Peak Velocity: 0.51 m/s, 0.51 m/s Pulmonic Valve PV Max Ari (0.6 - 0.9 m per sec): 1.04 m/s PV Max Gradient: 4.34 mm[Hg] Right Atrium Dictated by: Marshal Miller M.D. on 03/03/2022 at 20:01 Approved by: Marshal Miller M.D. on 03/03/2022 at 20:08 Normal [facility] BNPon 12-31-2021 Natriuretic peptide B (Bld) [Mass/Vol] 3595.0 pg/mL Critically high <=900.0 [facility] Comment on above: Performed By: #### B FACSIMILE OPERATOR, CMP #### [facility] [address] [place] [address] Dr. Toshia Jiang PROF 14(COMP METB)on 022 Albumin [Mass/Vol] 3.0 g/dL Critically low 3.4-5.0 [facility] Comment on above: Performed By: #### B FACSIMILE OPERATOR, CMP #### [facility] [address] [place] [id number] [address] Toshia Jiang Albumin/Globulin [Mass ratio] 0.8 {ratio} Normal [facility] Comment on above: Performed By: #### B FACSIMILE OPERATOR, CMP #### [facility] [address] [address] [address] Toshia Jiang ALP [Catalytic activity/Vol] 53 U/L Normal 46-116 [facility] Comment on above: Performed By: #### B FACSIMILE OPERATOR, CMP #### [facility] [address] [address] [address] Toshia Jiang ALT [Catalytic activity/Vol] 28 U/L Normal 16-63 [facility] Comment on above: Performed By: #### B FACSIMILE OPERATOR, CMP #### [facility] [address] [address] [address] Toshia Jiang Anion gap [Moles/Vol] 9.8 mmol/L Normal [facility] Comment on above: Performed By: #### B FACSIMILE OPERATOR, CMP #### [facility] [address] [place] [address] Dr. Toshia Jiang AST [Catalytic activity/Vol] 23 U/L Normal 15-37 [facility] Comment on above: Performed By: #### B FACSIMILE OPERATOR, CMP #### [facility] [address] [place] [address] Dr. Toshia Jiang Bilirubin [Mass/Vol] 0.3 mg/dL Normal 0.2-1.0 [facility] Comment on above: Performed By: #### B FACSIMILE OPERATOR, CMP #### [facility] [address] [place] [address] Dr. Toshia Jiang Calcium [Mass/Vol] 8.5 mg/dL Normal 8.5-10.1 [facility] Comment on above: Performed By: #### B FACSIMILE OPERATOR, CMP #### [facility] [address] [place] [address] Dr. Toshia Jiang Chloride [Moles/Vol] 104 mmol/L Normal 98-107 [facility] Comment on above: Performed By: #### B FACSIMILE OPERATOR, CMP #### [facility] [address] [address] [address] Toshia Jiang CO2 [Moles/Vol] 30.0 mmol/L Normal 21.0-32.0 [facility] Comment on above: Performed By: #### B FACSIMILE OPERATOR, CMP #### [facility] [address] [address] [address] Toshia Jiang Creatinine [Mass/Vol] 0.89 mg/dL Normal 0.70-1.30 [facility] Comment on above: Performed By: #### B FACSIMILE OPERATOR, CMP #### [facility] [address] [address] [address] Toshia Jiang EGFR-AF AFGHAN >60 Normal >=60 [facility] Comment on above: Performed By: #### B FACSIMILE OPERATOR, CMP #### [facility] [address] [address] [address] Toshia Jiagn EGFR-NON AF AFGHAN >60 Normal >=60 [facility] Comment on above: Performed By: #### B FACSIMILE OPERATOR, CMP #### [facility] [address] [address] [address] Toshia Jiang Globulin (S) [Mass/Vol] 3.7 g/dL Normal [facility] Comment on above: Performed By: #### B FACSIMILE OPERATOR, CMP #### [facility] [address] [place] [address] Dr. Toshia Jiang Glucose [Mass/Vol] 101 mg/dL Normal 74-106 [facility] Comment on above: Performed By: #### B FACSIMILE OPERATOR, CMP #### [facility] [address] [address] [address] Toshia Jiang Potassium [Moles/Vol] 3.8 mmol/L Normal 3.5-5.1 [facility] Comment on above: Performed By: #### B FACSIMILE OPERATOR, CMP #### [facility] [address] [place] [address] Dr. Toshia Jiang Protein [Mass/Vol] 6.7 g/dL Normal 6.4-8.2 [facility] Comment on above: Performed By: #### B FACSIMILE OPERATOR, CMP #### [facility] [address] [place] [address] Dr. Toshia Jiang Sodium [Moles/Vol] 140 mmol/L Normal 136-145 [facility] Comment on above: Performed By: #### B FACSIMILE OPERATOR, CMP #### [facility] [address] [place], [place] [address] Dr. Toshia Jiang Urea nitrogen [Mass/Vol] 10.0 mg/dL Normal 7.0-18.0 [facility] Comment on above: Performed By: #### B FACSIMILE OPERATOR, CMP #### [facility] [address] [place], [place] [address] Dr. Toshia Jiang Urea nitrogen/Creatinine [Mass ratio] 11.2 mg/mg Normal [facility] Comment on above: Performed By: #### B FACSIMILE OPERATOR, CMP #### [facility] [address] [place], [place] [address] Dr. Toshia Jiang Vital Signs Date Time Vital Sign Value Performing Clinician Faci lity 05-15-2024 15:14-0400 Body height 162.56 cm MD Evaristo Tavares Work Phone: [facility] 05-15-2024 15:14-0400 Body mass index (BMI) [Ratio] 19.7 kg/m2 MD Evaristo Tavares Work Phone: [facility] 05-15-2024 15:14-0400 Body weight 52.16 kg MD Evaristo Tavares Work Phone: [facility] 07-12-2022 16:00-0500 Body temperature 98 [degF] DO Tomás [employer] Work Phone: [facility] 07-12-2022 16:00-0500 Diastolic blood pressure 62 mm[Hg] DO Tomás [employer] Work Phone: [facility] 07-12-2022 16:00-0500 Heart rate 58 /min DO Tomás Keister Work Phone: [facility] 07-12-2022 16:00-0500 Respiratory rate 16 /min DO Tomás [employer] Work Phone: [facility] 07-12-2022 16:00-0500 SaO2% (BldA) [Mass fraction] 95 % DO Tomás Keister Work Phone: [facility] 07-12-2022 16:00-0500 Systolic blood pressure 101 mm[Hg] DO Tomás Keister Work Phone: [facility] 07-12-2022 05:34-0500 Body weight 57.3 kg DO Tomás Keister Work Phone: [facility] 2022 20:37-0500 Diastolic blood pressure 58 mm[Hg] DO Tomás Keister Work Phone: [facility] 2022 20:37-0500 Heart rate 50 /min DO Tomás Keister Work Phone: [facility] 2022 20:37-0500 Respiratory rate 18 /min DO Tomás Keister Work Phone: [facility] 2022 20:37-0500 SaO2% (BldA) [Mass fraction] 95 % DO Tomás Keister Work Phone: [facility] 2022 20:37-0500 Systolic blood pressure 99 mm[Hg] DO Tomás Keister Work Phone: [facility] 2022 14:40-0500 Body height 165.1 cm DO Tomás Keister Work Phone: [facility] 2022 14:40-0500 Body weight 57.1 kg DO Tomás Keister Work Phone: [facility] 2022 14:36-0500 Body temperature 97 [degF] DO Tomás Keister Work Phone: [facility] Encounters Encounter Date Encounter Type Care Provider Facility Start: 10-01-2025 ambulatory MD Roldan Khanna Facil ity:[facility] Start: 04-04-2025 ambulatory MD Roldan Khanna Facil ity:[facility] [place] Start: 10-01-2024 End: 10-01-2024 ambulatory MD Roldan Khanna Facility:[facility] [place] Start: 09-28-2024 End: 09-28-2024 ambulatory [facility] Start: 09-20-2024 ambulatory [facility] Start: 09-06-2024 End: 09-06-2024 ambulatory MD Roldan Khanna Facility:[facility] Start: 08-02-2024 ambulatory [facility] Start: 07-31-2024 ambulatory [facility] Start: 07-26-2024 ambulatory [facility] Start: 07-03-2024 ambulatory [facility] Start: 06-20-2024 ambulatory [facility] Start: 06-07-2024 ambulatory [facility] Start: 05-29-2024 End: 05-29-2024 ambulatory [facility] Start: 05-28-2024 ambulatory [facility] Start: 05-28-2024 Encounter for preprocedural cardiovascular examination [facility] Start: 05-15-2024 End: 05-15-2024 ambulatory MD Evaristo Tavares Work Phone: [facility] Work Phone: Start: 05-15-2024 End: 05-15-2024 Patient encounter procedure MD Evaristo Tavares Work Phone: [facility] Work Phone: Start: 04-17-2024 End: 04-17-2024 ambulatory MD Roldan Khanna Facility:[facility] [place] Start: 03-20-2024 End: 03-20-2024 ambulatory [facility] Start: 03-07-2024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 Diagnosis Date CHF (congestive heart failure) ([facility]) COPD (chronic obstructive pulmonary disease) ([facility] Coronary artery disease Humerus fracture 11/24/2023 left Hypertension Ischemic dilated cardiomyopathy ([facility]) Lumbar compression fracture ([facility]) 11/24/2023 L2, L4 Myocardial infarction ([facility]) Rib fractures 11/24/2023 right 4-8 rib fx VT (ventricular tachycardia) ([facility]) Past Surgical History: Procedure Laterality Date ANTERIOR CERVICAL DISCECTOMY W/ FUSION CARDIAC CATHETERIZATION CORONARY STENT PLACEMENT INSERT / REPLACE / REMOVE PACEMAKER Precautions Precautions UE Weight Bearing Status: Left, NWB Medical Precautions: fall risk, oxygen (4LO2) Pain Pain Assessment Pain Score: 7 (left UE and middle back, nsg aware) Cognition Cognition Overall Cognitive Status: Within Functional Limits General Assessment General Assessment Hearing: (wfl) Hand Dominance: Right Home Living Home Living Type of Home: Apartment Lives With: Alone Home Adaptive Equipment: None Home Layout: One level Home Access: Level entry Bathroom Shower/Tub: Tub/shower unit Prior Level of Function Prior Function Level of [place]: Independent with ADLs and functional transfers, Independent with homemaking with ambulation (drives) Prior Functional Mobility: Independent without device Prior IADLs IADL History Homemaking Responsibilities: Yes Static Sitting Balance Static Sitting Balance Static Sitting-Level of Assistance: Independent Dynamic Sitting Balance Dynamic Sitting Balance Dynamic Sitting Balance-Level of Assistance: Minimum assistance (due to pain) Static Standing Balance Static Standing Balance Static Standing-Level of Assistance: Minimum assistance ADL ADL UE Dressing Assistance: Maximal LE Dressing Assistance: Maximal Transfers Transfers Transfer: (min A supine to sit EOB, min A :: sit to stand, standing four minutes , 15 feet and sit EOB/ patient request to return to bed, min A sit to supine) Objective General Assessments Activity Tolerance Endurance: Stage II Vision - Basic Assessment Current Vision: No visual deficits Sensation Light Touch: No apparent deficits Coordination Movements are Fluid and Coordinated: No Coordination and Movement Description: (RUE wfl , left hand painful/ can wiggle fingers/sensory wfl) Extremity Assessments RUE Assessment RUE Assessment: Within Functional Limits LUE Assessment LUE Assessment: (splinted/sling, can open and close hand but painful) Outcome Assessments AM-PAC 6 Clicks Putting on and taking off regular lower body clothing?: A Lot (Mod/Max Assist) Bathing(Including washing,rinsing,drying)?: A Lot (Mod/Max Assist) Toileting, which includes using the toilet,bedpan,or urinal?: A Little (Min Assist/Contact Guard/Supervision) Putting on and taking off regular upper body clothing?: A Lot (Mod/Ma (more content not included)... [facility] 11-25-2023 Note ------ Attestation signed by Juan Luis Howard MD at 11/27/2023 5:00 PM I did not personally examine the patient. I discussed the case with the resident and agree with the plan. ------ Orthopaedic Surgery Orthopaedic Surgery Progress Note Date: 11/25/2023 Surgery: - * Surgery not found * SUBJECTIVE: NAEON. Patient resting comfortably in bed. He reports that the pain of his left arm is well-controlled. He denies any new onset weakness, numbness, or tingling to his left upper extremity. OBJECTIVE BP (!) 103/47 (BP Location: Right arm, Patient Position: Lying) Pulse 56 Temp 36.7 ???C (98.1 ???F) (Temporal) Resp 17 Ht 1.651 m (5' 5 ) Wt 58.8 kg (129 lb 10.1 oz) SpO2 (!) 89% BMI 21.57 kg/m??? General: A/O x3, resting comfortably in bed, cooperative MSK: LUE: -Coaptation splint in place - ROM: Deferred - Compartments of arm and forearm are soft, compressible - SILT intact in median, ulnar, radial distributions - Motor function intact in median, ulnar, radial, AIN, PIN - 5/5 strength to EPL/FPL/IO - Hand is WWP with BCR x 5, 2+ RP Labs: Lab Results Component Value Date WBC 8.65 11/25/2023 HGB 10.1 (L) 11/25/2023 HCT 31.8 (L) 11/25/2023 MCV 105.3 (H) 11/25/2023 PLT 112 (L) 11/25/2023 Lab Results Component Value Date CALCIUM 7.8 (L) 11/25/2023 NA 139 11/25/2023 K 3.9 11/25/2023 CO2 23 11/25/2023 CL 111 (H) 11/25/2023 BUN 15 11/25/2023 CREATININE 0.94 11/25/2023 Lab Results Component Value Date INR 1.06 11/24/2023 Imaging: Imaging for last 3 days: XR humerus left Result Date: 11/24/2023 Impression: Breast material obscures bone detail. There is improved alignment with decreased angulation of the humeral shaft fracture. There is posterior displacement of the distal fracture fragment approximately 1.6 cm and mild overriding of the fracture fragments. Electronically signed: Rocco Tripp. XR elbow 3+ views left Result Date: 11/24/2023 Impression: Small focus of ossification at the level of the posterior, inferior aspect of the olecranon process in the lateral view is likely chronic with no adjacent soft tissue swelling. No evidence for an elbow joint effusion. No other evidence for an acute fracture. No dislocation. Electronically signed: Rocco Tripp. XR humerus left Result Date: 11/24/2023 Impression: 1. There is an acute, oblique fracture the proximal third of the left humeral shaft with anteromedial apex regulation at the fracture site. There is overriding the fracture fragments at least 1.5 cm, and there is 2.3 cm medial displacement of the distal fracture fragment. 2. No glenohumeral dislocation. No definite evidence for dislocation at the elbow, although evaluation is recommended as markedly compromised due to patient positioning. If concern for an acute abnormality at the left elbow, recommend dedicated left elbow radiographs. Electronically signed: Rocco Tripp. XR pelvis 1 or 2 views Result Date: 11/24/2023 1. Chronic deformity of right iliac bone. No evidence for acute fracture or dislocation. Evaluation for nondisplaced fractures is compromised by overlying sheet/gown material. 2. Degenerative changes of the hips and lumbar spine. Electronically signed: Rocco Tripp. XR chest 1 view Result Date: 11/24/2023 1. The heart is enlarged. Mediastinal silhouette is within normal limits. Mild vascular congestion. Diffuse prominence of the interstitium compatible mild interstitial edema. There is a left ICD.. 2. No evidence for a pneumothorax, focal consolidation, or pleural effusion. 3. Partially visualized proximal left humeral fracture, refer to left humerus radiograph report. 4. Ovoid area of gas overlying the inferior thorax under the diaphragm/upper abdomen is most likely air within the stomach with the appearance due to lordosis. This does not have the appearance of free intra-abdominal air. Consider dedicated abdominal radiographs or CT if clinically indicated. Electronically signed: Rocco Tripp. CT upper extremity left wo IV contrast Result Date: 11/24/2023 *Acute angulated, displaced fracture through the proximal left humeral diaphysis. All CT scans at this facility use dose modulation, iterative reconstruction, and/or weight based dosing when appropriate to reduce radiation dose to as low as reasonably achievable. Electronically signed: Joel Gillette. CT abdomen pelvis w IV contrast Result Date: 11/24/2023 *Questionable acute superior endplate fractures of the L2 and L4 vertebral bodies. Recommend further assessment with MRI. *Small amount of nonspecific free fluid in the right lower quadrant and pelvis. *Multiple nonobstructing bilateral renal stones Electronically signed: Joel Gillette. CT chest w IV contrast Result Date: 11/24/2023 *Probable acute nondisplaced fr (more content not included)... [facility] 11-25-2023 Note [facility] Trauma Service Progress note Subjective No acute events overnight. Patient resting comfortably in bed, left arm in sling. Patient endorses pain in left shoulder/arm however states pain is adequately controlled. Denies chest pain, shortness of breath or pain with deep breathing. Patient denies fever, chills, abdominal pain, nausea and vomiting. Objective BP: (97-125)/(47-98) 103/47 (11/25 399) Temp: [36.7 ???C (98 ???F)-36.7 ???C (98.1 ???F)] 36.7 ???C (98.1 ???F) (11/25 399) Temp Source: Temporal (11/25 399) Heart Rate: [53-66] 56 (11/25 399) Resp: [13-23] 17 (11/25 399) SpO2: [86 %-98 %] 89 % (11/25 399) Height: [165.1 cm (5' 5 )] 165.1 cm (5' 5 ) (11/24 29) Weight: [58.8 kg (129 lb 10.1 oz)-62.1 kg (136 lb 14.5 oz)] 58.8 kg (129 lb 10.1 oz) (11/25 399) [place] Coma Scale Score: 15 Intake/Output Summary (Last 24 hours) at 11/25/2023 0624 Last data filed at 11/25/2023 0449 Gross per 24 hour Intake 340 ml Output 400 ml Net -60 ml Recent Results (from the past 12 hour(s)) Urinalysis with microscopic Collection Time: 11/24/23 9:23 PM Result Value Ref Range Color, Urine Yellow Yellow Clarity, Urine Clear Clear Specific [place], Urine 1.042 (H) 1.015 - 1.020 pH, Urine 5.0 5.0 - 8.0 pH Leukocytes, Urine Negative Negative Nitrite, Urine Negative Negative Protein, Urine 30 (A) Negative mg/dL Glucose, Urine Negative Negative mg/dL Bilirubin, Urine Negative Negative Ketones, Urine Negative Negative mg/dL Blood, Urine Negative Negative RBC, Urine None Seen None Seen /HPF WBC, Urine None Seen None Seen /HPF Squamous Epithelial, Urine Few (A) None Seen, Occasional /HPF Mucus, Urine Few None Seen, Occasional, Few /HPF Toxicology Panel Urine Collection Time: 11/24/23 9:23 PM Result Value Ref Range Barbiturate Screen, Ur Negative Negative Benzodiazepines Screen, Urine Negative Negative Propoxyphene, Ur Negative Negative Methadone Screen, Urine Negative Negative TCA, Urine Negative Negative PCP Scrn, Ur Negative Negative Opiate Scrn, Ur Positive (A) Negative Cocaine Screen, Urine Negative Negative Amphetamine+Methamphetamine Screen, Ur Negative Negative Cannabinoid Screen, Urine Positive (A) Negative Basic metabolic panel Collection Time: 11/25/23 5:24 AM Result Value Ref Range Sodium 139 136 - 145 mmol/L Potassium 3.9 3.5 - 5.1 mmol/L Chloride 111 (H) 98 - 107 mmol/L CO2 23 21 - 31 mmol/L BUN 15 7 - 25 mg/dL Creatinine 0.94 0.70 - 1.30 mg/dL Glucose 104 (H) 70 - 100 mg/dL Calcium 7.8 (L) 8.6 - 10.3 mg/dL Anion Gap 9 7 - 20 mmol/L eGFR 86.1 >60.0 mL/min/1.73m*2 BUN/Creatinine Ratio 16.0 Magnesium Collection Time: 11/25/23 5:24 AM Result Value Ref Range Magnesium 1.8 (L) 1.9 - 2.7 mg/dL Phosphorus Collection Time: 11/25/23 5:24 AM Result Value Ref Range Phosphorus 3.6 2.5 - 5.0 mg/dL CBC auto differential Collection Time: 11/25/23 5:24 AM Result Value Ref Range Auto WBC 8.65 4.00 - 10.60 10*3/uL RBC 3.02 (L) 4.20 - 5.70 10*6/uL Hemoglobin 10.1 (L) 13.0 - 17.0 g/dL Hematocrit 31.8 (L) 39.0 - 55.0 % MCV 105.3 (H) 82.0 - 98.0 fL MCH 33.4 (H) 27.0 - 33.0 pg MCHC 31.8 (L) 32.0 - 35.0 g/dL RDW 14.9 11.5 - 15.0 % Neutrophils Relative 78.3 (H) 40.0 - 72.0 % Lymphocytes Relative 12.3 (L) 20.0 - 45.0 % Monocytes Relative 7.7 5.0 - 12.0 % Eosinophils Relative 1.0 0.0 - 6.0 % Basophils Relative 0.1 0.0 - 1.0 % Neutrophils Absolute 6.77 1.60 - 7.60 10*3/uL Lymphocytes Absolute 1.06 (L) 1.20 - 4.00 10*3/uL Monocytes Absolute 0.67 0.10 - 1.00 10*3/uL Eosinophils Absolute 0.09 0.00 - 0.50 10*3/uL Basophils Absolute 0.01 0.00 - 0.20 10*3/uL Platelets 112 (L) 150 - 400 10*3/uL nRBC % 0.0 0 % Immature Granulocytes Relative 0.6 0.0 - 1.0 % Immature Granulocytes Absolute 0.05 0.00 - 0.20 10*3/uL Immature Platelet Fraction % 2.8 0.8 - 6.3 % XR chest 1 view Result Date: 11/24/2023 1. The heart is enlarged. Mediastinal silhouette is within normal limits. Mild vascular congestion. Diffuse prominence of the interstitium compatible mild interstitial edema. There is a left ICD.. 2. No evidence for a pneumothorax, focal consolidation, or pleural effusion. 3. Partially visualized proximal left humeral fracture, refer to left humerus radiograph report. 4. Ovoid area of gas overlying the inferior thorax under the diaphragm/upper abdomen is most likely air within the stomach with the appearance due to lordosis. This does not have the appearance of free intra-abdominal air. Consider dedicated abdominal radiographs or CT if clinically indicated. Electronically signed: Rocco Tripp. CT head wo IV contrast Result Date: 11/24/2023 No acute intracranial abnormality. Electronically signed: Joel Gillette. Physical Exam: General: Awake, Alert, No acute distress Head: Normocephalic and Atraumatic. Mid Face Stable. Nares Patent Bilaterally, No Epistaxis. Mouth Clear Of Foreign Bodies, No Lacerations Or Abras (more content not included)... [facility] 11-24-2023 Note 11/24/23 4821 Financial Resource Strain How hard is it for you to pay for the very basics like food, housing, medical care, and heating? Not hard Housing Stability In the last 12 months, was there a time when you were not able to pay the mortgage or rent on time? N In the last 12 months, how many places have you lived? 1 In the last 12 months, was there a time when you did not have a steady place to sleep or slept in a penitentiary (including now)? N Transportation Needs In the past 12 months, has lack of transportation kept you from medical appointments or from getting medications? no In the past 12 months, has lack of transportation kept you from meetings, work, or from getting things needed for daily living? No Food Insecurity Within the past 12 months, you worried that your food would run out before you got the money to buy more. Never true Within the past 12 months, the food you bought just didn't last and you didn't have money to get more. Never true Stress Do you feel stress - tense, restless, nervous, or anxious, or unable to sleep at night because your mind is troubled all the time - these days? Only a littl Social Connections In a typical week, how many times do you talk on the phone with family, friends, or neighbors? More than 3 How often do you get together with friends or relatives? More than 3 How often do you attend latter day or hinduism services? Never Do you belong to any clubs or organizations such as latter day groups, unions, fraternal or athletic groups, or school groups? No How often do you attend meetings of the clubs or organizations you belong to? Never Are you , , , , never , or living with a partner? Intimate Partner Violence Within the last year, have you been afraid of your partner or ex-partner? No Within the last year, have you been humiliated or emotionally abused in other ways by your partner or ex-partner? No Within the last year, have you been kicked, hit, slapped, or otherwise physically hurt by your partner or ex-partner? No Within the last year, have you been raped or forced to have any kind of sexual activity by your partner or ex-partner? No Alcohol Use Q1: How often do you have a drink containing alcohol? Never Q2: How many drinks containing alcohol do you have on a typical day when you are drinking? None Q3: How often do you have six or more drinks on one occasion? Never Utilities In the past 12 months has the [employer], gas, oil, or water [employer] threatened to shut off services in your home? 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 Referral Reason Psychosocial assessment Patient Information Primary Caregiver Self Activities of Daily Living Assistive Device Not applicable Living Arrangement (Current/Prior to Hospitalization) Private residence (Lives at home by himself) Ambulation Independent Dressing Independent Feeding Independent Behavior Oriented (A&Ox4) Communication Can write;Talks;Understands Yemeni;Understands speaking;Reads Income Information Income Source Unemployed (Retired) Discharge Planning Support Systems Family members;Friends/neighbors Type of Residence/Post Acute Needs Private residence Patient's goal for discharge Home with OP PT at [facility] Does the patient need discharge transport arranged? No Completed social work assessment and SDoH screening. Patient A&Ox4 at this time. Patient reported that he lives at home by himself and he listed his family and his friends as his support system. Patient endorsed that he is moderately socially active. Patient reported that he is independent with ADLs without the use of any DME. Patient reported that he is retired from employment and he denied the need for assistance with obtaining basic needs. Patient also denied the need for assistance with transportation for medical appointments and he denied the need for assistance with transportation home from the hospital upon discharge. Patient denied experiencing any significant amount of stress in his everyday life, denied experiencing any form of IPV within the past year, denied any alcohol consumption, and endorsed occasional use of nicotine and marijuana via vape. Consulted for SNF-- patient declined IP placement at this time and reported that he would like to complete outpatient physical therapy through [facility], which he has participated in before in the past (P: [phone] ext. [phone]; F: [phone]). [facility] 07-12-2022 Progress note Note Date/Time July 12, 2022 1:54pm [facility] [address] [place] [address] Cardiology Progress Note Signed Patient: Dung Coffman MR#: [id number] : 1950 Acct:[id number] Age/Sex: 72 / M Adm Date: 2 Loc: Room: 4B2393-4 Type: ADM IN Attending Dr: Kun Chan MD Copies to: ~ Date of Service: 07/12/2022 Subjective Principal diagnosis: Dehydration Interval history: Patient seen interviewed and examined. Today he denies dyspnea orthopnea PND. He is ambulatory in the room without difficulty. Chemistries are improved. It appears dehydration is resolved. I explained to him, again, that I find it difficult to understand why he became so dehydrated on a small dose of spironolactone alone in the absence of loop diuretic therapy. He acknowledges that he does not really know his home medications and its my concern he may also have loop diuretic therapy which we are not aware of. We are not his managing group and consequently he needs to follow-up with the [place] cardiology group so they can make further adjustments in his diuretic regimen. For the time being, though, I recommend cessation of spironolactone. All other cardiac medicines should be continued. I recommend early follow-up with the [place] cardiology group. Exam Physical Exam Vital Signs: Temp Pulse Resp BP Pulse Ox O2 Del Method 98.2 F 54 L 16 103/57 L 95 Room Air 07/12/22 11:52 07/12/22 11:52 07/12/22 11:52 07/12/22 11:52 07/12/22 11:52 07/12/22 11:52 HEENT Head: normal to inspection Ears: hearing grossly normal bilaterally Nose: external nose normal and nares normal Face and sinus: normal facial exam Mouth: oral mucosae normal and tongue normal Eyes Conjunctivae: conjunctivae normal Sclera: sclerae normal Neck Neck: normal visual inspection Carotids: normal carotid upstroke Lymphatic: no lymphadenopathy noted Chest Chest palpation & inspection: normal inspection of the chest Resp Effort & Inspection: normal respiratory effort Auscultation: clear to auscultation bilaterally Cardio Rate: regular rate Rhythm: regular rhythm Heart Sounds: S1 normal and S2 normal GI Inspection: normal to inspection Palpation: soft Skin General: no rashes or lesions noted Neuro General: patient alert, patient awake and patient oriented x3 Cognition: normal cognition Motor: muscle tone normal throughout Sensory Exam: no sensory deficits noted Objective Labs CBC & Chem 7: 07/12/22 06:41 07/12/22 06:41 Labs: Laboratory Results - last 24 hr 07/11/22 07/12/22 07/12/22 21:48 06:41 06:41 Corrected WBC 6.3 Uncorrected WBC Count 6.3 RBC 3.14 L Hgb 10.4 L Hct 30.6 L MCV 97.5 MCH 33.3 MCHC 34.1 RDW 13.4 Plt Count 103 L MPV 9.2 Neut % (Auto) 59.0 Lymph % (Auto) 30.0 [place] % (Auto) 9.3 Eos % (Auto) 1.2 Baso % (Auto) 0.5 Nucleat RBC Rel Count 0.1 Neut # (Auto) 3.7 Lymph # (Auto) 1.9 [place] # (Auto) 0.6 Eos # (Auto) 0.1 Baso # (Auto) 0.0 PHA Creatinine Clear 47.75 Sodium 135 L Potassium 3.7 Chloride 110 Carbon Dioxide 21.0 L Anion Gap 7.7 BUN 9 Creatinine 1.15 Est GFR ( Amer) > 60 Est GFR (Non-Af Amer) > 60 Glucose 102 H Calcium 8.2 Ur Random Creatinine 83.2 Ur Random Sodium 111 A&P - Cardiology (1) Dehydration: Assessment/Problem Details: Presumably due to pharmacologic therapy. 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 Code(s): E86.0 - Dehydration Status: Acute (2) Chronic systolic (congestive) heart failure: Assessment/Problem Details: Historically chronic systolic congestive heart failure ejection fraction 25%. We presume this still to be the case. Code(s): I50.22 - Chronic systolic (congestive) heart failure Status: Acute Plan Patient appears euvolemic and improved off spironolactone. He can be dischargedtoday on the pharmacologic regimen, as before, without spironolactone. Is strongly encouraged him to seek early follow-up with his e commerce merchant. Documented By: Dung Ruiz MD [id number] Signed By: <Electronically signed by MD Dung Ruiz> 07/12/22 [address] [facility] Work Phone: 1(130) 288-523912-18-2022 Progress note Author Mik Santiago [facility] July 11, 2022 5:23pm Note Date/Time July 11, 2022 10:46am [facility] [address] [place] [address] Hospitalist Progress Note Signed Patient: Dung Coffman MR#: [id number] : 1950 Acct:[id number] Age/Sex: 72 / M Adm Date: 2 Loc: Room: [address] [place] [address] Type: ADM IN Attending Dr: Mik Santiago DO Copies to: ~ Date of Service: 07/11/2022 Subjective Subjective Narrative: Patient seen and examined at bedside. No acute events overnight. Reports feeling much better he denies having any dizziness or lightheadedness. No chestpain or palpitation. No cough, dyspnea, or pain with inspiration. Afebrile Exam Physical Exam Vital Signs: Temp Pulse Resp BP Pulse Ox O2 Del Method 97.9 F 50 L 16 98/58 L 95 Room Air 07/11/22 07:36 07/11/22 07:36 07/11/22 07:36 07/11/22 07:36 07/11/22 07:36 07/11/22 09:56 Narrative: CONST- Appears well -developed and well nourished CARDIAC-normal rate, regular rhythm, normal S1 & S2. PULM-diminished without wheeze or rhonchi, RA, no accessory muscle use or cough noted ABD - Soft. Bowel sounds are normal. No distention No tenderness EXTREM-no edema BLE calves nontender SKIN- W/D good turgor Objective Lab Results CBC & Chem 7: 07/11/22 06:39 07/11/22 06:39 Microbiology Results Microbiology 07/10/22 14:56 Nasopharyngeal SARS-CoV-2, Influenza & RSV (PCR) - Final Meds Allergies and Active Meds Allergies No Known Drug Allergies Allergy (Verified 07/10/22 14:57) Unknown Reaction Active Meds: Active Medications Generic Name Dose Route Start Last Admin Trade Name Juarez PRN Reason Stop Dose Admin Acetaminophen 650 mg 07/11/22 04:04 07/11/22 04:30 Acetaminophen 325 Mg Tablet PO 07/11/23 04:03 650 mg Q6H PRN Administration Pain Amiodarone HCl 200 mg 07/10/22 21:00 07/11/22 08:02 Amiodarone 200 Mg Tablet PO 07/10/23 20:59 200 mg BID PABLO Administration Aspirin 81 mg 07/11/22 09:00 07/11/22 08:01 Aspirin 81 Mg Tab.Chew PO 07/11/23 08:59 81 mg DAILY PABLO Administration Atorvastatin Calcium 40 mg 07/10/22 22:00 07/10/22 22:06 Atorvastatin 40 Mg Tablet PO 07/10/23 21:59 40 mg QHS PABLO Administration Clopidogrel Bisulfate 75 mg 07/11/22 09:00 07/11/22 08:02 Clopidogrel Bisulfate 75 Mg Tablet PO 07/11/23 08:59 75 mg DAILY PABLO Administration Heparin Sodium (Porcine) 5,000 unit 07/10/22 21:00 07/11/22 08:02 Heparin 5,000 Unit/Ml Vial SUBCUT 07/10/23 20:59 5,000 unit Q12HR PABLO Administration Home Med 1 each 07/10/22 19:10 Home Meds Kept In Pharmacy MISCELLANE 07/10/23 19:09 PRN PRN zz.Pharmacy Note Sodium Chloride 1,000 mls @ 50 mls/hr 07/11/22 09:15 07/11/22 09:40 0.9% Sodium Chloride 1,000 Ml IV 07/12/22 09:14 50 mls/hr .Q20H PABLO Administration Nicotine 1 each 07/11/22 09:00 07/11/22 08:01 Nicotine Patch 14 Mg/24hr 1 Each Patch.Td24 TRANSDERML 07/24/22 09:01 1 each DAILY PABLO Administration Potassium Chloride 10 meq 07/11/22 09:00 07/11/22 08:02 Potassium Chloride Er 10 Meq Tablet.Er PO 07/11/23 08:59 10 meq DAILY PABLO Administration Sacubitril/Valsartan 1 tab 07/10/22 21:00 Sacubitril/Valsartan 24-26mg 1 Tab Tablet PO 07/10/23 20:59 BID PABLO Sodium Chloride 0 ml 07/10/22 14:36 Sodium Chloride 0.9 % 10 Ml Syringe IV-PUSH 07/10/23 14:35 PRN PRN Flush A&P - Hospitalist Assessment/Plan (1) Near syncope: (2) Orthostatic hypotension: (3) LISA (acute kidney injury): (4) CAD (coronary artery disease): (5) Dehydration: (6) Chronic systolic (congestive) heart failure: Plan *Orthostatic hypotension/near syncope?likely medication induced, he is on a beta-kosta, and diuretics Feeling much better today, denies feelings of dizziness or lightheadedness ?EKG, showed atrial paced rhythm with 50 bpm, pacemaker was interrogated in the ED, functioning well ?Administered 1500 cc of NS bolus in ED ?Positive orthostatics in the ER ?Echocardiogram December 2019 with EF of 20-25%, will order an echocardiogram for tomorrow ?We will continue to hold beta-kosta ?Cardiology consulted *Acute kidney injury, improving likely due to poor oral intake and low blood pressures *Metabolic acidosis, improving secondary to renal function ?Creatinine 2.28>>1.55. Last creatinine on record 0.80 in 2019 ?Urine sodium, urine creatinine ? No additional need for IV fluids at this time. Therefore normal saline at 50 mL/h will be stopped. Recheck creatinine in the morning ?Continue hold Entresto, spironolactone and Lasix Low blood pressures ?Blood pressures are very soft at this time so we will continue to hold amlodipine until blood pressures improved Chronic conditions: 1.PA with stent placement x7/pacemaker 2.HFrEF-compensated, no signs and symptoms of volume overload CODE STATUS: Full code DVT prophylaxis: Heparin ++++ ++++ I personally saw this patient on the day of the encounter, reviewed the relevanthistory, performed the sam elements of the physical exam, and discussed and formulated the plan of care with the Nurse Practitioner, and I confirm the NursePractitioner's documentation as written. When I see the patient in the evening he says that he is able to make short walks to the bathroom without feeling as lightheaded and is wobbly on his feet and like he would pass out. He can stop the gentle IV fluids running at 50 mL an hour at this time. He is already had about 2.2 L of IV fluids from when he came to the emergency room. In contrast to cardiology's note the patient is very clear that he did take furosemide 20 mg p.o. daily along with spironolactone 25 mg p.o. daily for almost 3 months. A few days ago he began thinking that he was dehydrated so he started taking it every other day. It seems the nurses left this off of his home medication list. I went into that which had in the computer and fixed the home medication list and I will also put in the correct dose of Coreg that he was taking at home. I will restart Coreg tonight and nursing staff to watch very closely for any additional orthostatic hypotension and he should be reevaluated tomorrow. I anticipate that his creatinine will improve tomorrow. I think this patient was very dehydrated at home and was suffering for very low blood pressures. I am still curious why this patient's pacemaker seems to be set to keep his heart rate at 50 bpm which seems on the low side. Given the severity of his near syncope spells I will also order carotid Doppler ultrasound to make sure there is not significant carotid disease present. Documented By: Elizabeth Ramey APRN 07/11/22 1027 Signed By: <Electronically signed by ETHAN Ramey> 07/11/22 1047 <Electronically signed by Mik Santiago DO> 07/11/22 [address] [facility] Work Phone: 1(632) 533-429612-18-2022 Consult note Author Dung Ruiz [facility] July 11, 2022 1:08pm Note Date/Time July 11, 2022 1:08pm [facility] [address] [place] [address] Cardiology Consult Note Signed Patient: Dung Coffman MR#: [id number] : 1950 Acct:[id number] Age/Sex: 72 / M Adm Date: 2 Loc: Room: [address] [place] [address] Type: ADM IN Attending Dr: Mik Santiago DO Copies to: MD Mik Amor DO William Patrick McGuinn, MD~ Cardiology HPI History of Present Illness Consult Date: 07/11/22 Reason for Consult: Dehydration, history of systolic congestive heart failure HPI: Mr. Coffman is a 72 year old male seen for the above. He is an individual who we have seen intermittently. Our last encounter was 2 years ago. At that time he was hospitalized acutely and underwent defibrillatorimplantation. He is not been seen since. He lives in [place] and follows withthe [place] cardiology group. Because of this details are unclear. He states he brought his medical regimen list and/or bottles with him that I help in her suspect they are reflected accurately in the chart. You presented with manifestations of apparent dehydration. Interestingly he is only on spironolactone. No loop diuretic. Its difficult to understand how or why he can become so dehydrated on this chronic regimen in the absence of the loop diuretic but nonetheless he did appear dehydrated. Because of this I believe it is reasonable to resume his outpatient regimen but forego diuretics. Also note somewhat curiously that he is on amlodipine. This would actually be detrimental for his nonischemic cardiomyopathy. Because of this I probably would stop this particular agent and instead favor the resumption of carvedilol which has true benefit in this particular clinical setting. He has a history of coronary disease with previous infarction. Fortunately has no manifestations of ischemia this admission. Review of Systems Review of Systems All other systems reviewed & are negative unless noted below or in HPI Constitutional Constitutional: Reports system reviewed and no additional complaints, except as documented Eyes Eyes: Reports system reviewed and no additional complaints, except as documented ENT Ears, Nose, Mouth, and Throat: Reports system reviewed and no additional complaints, except as documented Cardiovascular Cardiovascular: Reports as per HPI Respiratory Respiratory: Reports system reviewed and no additional complaints, except as documented Gastrointestinal Gastrointestinal: Reports system reviewed and no additional complaints, except as documented Genitourinary Genitourinary: Reports as per HPI Musculoskeletal Musculoskeletal: Reports system reviewed and no additional complaints, except asdocumented Integumentary/Breasts Skin/Breast: Reports system reviewed and no additional complaints, except as documented Neurologic Neurologic: Reports system reviewed and no additional complaints, except as documented Psychiatric Psychiatric: Reports system reviewed and no additional complaints, except as documented Endocrine Endocrine: Reports system reviewed and no additional complaints, except as documented Hematologic/Lymphatic Hematologic/Lymphatic: Reports system reviewed and no additional complaints, except as documented Allergic/Immunologic Allergic/Immunologic: Reports system reviewed and no additional complaints, except as documented PMFSH Vaccinated for COVID-19?: Yes Medical History Chronic systolic (congestive) heart failure Myocardial infarction Four instances of PA: 2011, 2013, 2016, 2019 Pacemaker Surgical History History of heart artery stent First heart attack had 1 stent placed. Second heart attack had 2 placed. Third heart attack had 4 placed. Family History Other Brain tumor Lung cancer Pancreatic cancer Social History Smoking Status: Current every day smoker Tobacco Type: cigarettes Substance Use Type: Marijuana Meds Medications and Allergies Allergies No Known Drug Allergies Allergy (Verified 07/10/22 14:57) Unknown Reaction Home Medications atorvastatin 40 mg tablet 40 mg PO QHS 03/29/20 [History Confirmed 07/10/22] carvedilol 6.25 mg tablet 12.5 mg PO DAILY 03/29/20 [History Confirmed 07/10/22] clopidogrel 75 mg tablet 75 mg PO DAILY 03/29/20 [History Confirmed 07/10/22] spironolactone 25 mg tablet 25 mg PO DAILY 03/29/20 [History Confirmed 07/10/22] aspirin 81 mg chewable tablet 81 mg PO DAILY 03/30/20 [History Confirmed 07/10/22] amiodarone 200 mg tablet 200 mg PO BID 30 days #60 tabs 04/03/20 [Rx Confirmed 07/10/22] amlodipine 10 mg tablet 10 mg PO DAILY 07/10/22 [History Confirmed 07/10/22] potassium chloride 10 mEq tablet,extended release 10 meq PO DAILY 07/10/22 [History Confirmed 07/10/22] sacubitril 24 mg-valsartan 26 mg tablet (Entresto) 1 tab PO ACHS 07/10/22 [History Confirmed 07/10/22] Exam Physical Exam Vital Signs: Temp Pulse Resp BP Pulse Ox O2 Del Method 97.9 F 50 L 16 98/58 L 95 Room Air 07/11/22 07:36 07/11/22 07:36 07/11/22 07:36 07/11/22 07:36 07/11/22 07:36 07/11/22 11:59 Results Labs CBC & CMP: 07/11/22 06:39 07/11/22 06:39 Lab results: Cardiac Enzymes 07/10/22 07/10/22 07/10/22 Range/Units 14:48 14:48 14:48 AST 37 (10-42) U/L Total Creatine Kinase 96 (22-269) U/L CK-MB (CK-2) 2.7 (0.6-6.3) ng/mL CK-MB (CK-2) Rel Index 2.8 H (0.00-2.50) % B-Natriuretic Peptide 221.0 H (5-100) pg/mL CBC 07/10/22 07/11/22 Range/Units 14:48 06:39 RBC 3.70 L 3.12 L (3.90-5.60) X10E6/uL Hgb 12.2 L 10.5 L (13.0-17.0) g/dL Hct 36.7 L 30.4 L (38.8-50.0) % Plt Count 136 L 107 L D (150-450) x10E3/uL Neut # (Auto) 4.9 4.8 (1.8-7.7) x10E3/uL Lymph # (Auto) 1.4 1.9 (1.00-4.8) x10E3/uL Caswell # (Auto) 0.5 0.5 (0.0-0.8) x10E3/uL Eos # (Auto) 0.0 0.1 (0.0-0.45) x10E3/uL Baso # (Auto) 0.0 0.0 (0.0-0.2) x10E3/uL Comprehensive Metabolic Panel 07/10/22 07/11/22 Range/Units 14:48 06:39 Sodium 135 L 136 (136-146) mmol/L Potassium 4.0 3.4 L (3.5-5.1) mmol/L Chloride 105 112 (95-114) mmol/L Carbon Dioxide 18.7 L 20.5 L (22.0-30.0) mmol/L BUN 20 13 (9-23) mg/dL Creatinine 2.28 H 1.55 H D (0.64-1.27) mg/dL Glucose 115 H 103 H (70-100) mg/dL Calcium 8.4 8.1 L (8.2-10.2) mg/dL AST 37 (10-42) U/L ALT 44 (10-60) U/L Alkaline Phosphatase 55 (32-92) U/L Total Protein 6.4 (6.1-7.9) gm/dL Albumin 3.5 (3.2-5.5) gm/dL Intake and Output 07/10/22 07/11/22 07/11/22 23:59 07:59 15:59 Intake Total 1120 / 1620 240 / 240 Output Total 300 / 300 Balance 1120 / 1520 -60 / -60 Intake: IV 1000 / 1500 Sodium Chloride 0.9% 1,000 ml 1 1000 / 1000 ,000 ml @ 999 mls/hr IV .Q1H1M ONE Rx#:[id number] Oral 120 / 120 240 / 240 Output: Urine 300 / 300 Other: # Unmeasured Voids 0 Weight 57.1 kg 57.1 kg Date of Last Bowel Movement 07/10/22 07/10/22 Patient Weight 07/11/22 23:59 Weight 57.1 kg Lab 07/10/22 14:48 PT 11.9 INR 1.1 APTT 28.8 A&P - Cardiology (1) Chronic systolic (congestive) heart failure: Assessment/Problem Details: Patient has no manifestations of heart failure at the present time. Is actuallydehydrated. I believe because of the cardiomyopathy and heart failure, though, his spironolactone should be stopped as well as amlodipine. Continue other meds. Code(s): I50.22 - Chronic systolic (congestive) heart failure (2) Dehydration: Assessment/Problem Details: Discontinue spironolactone Code(s): E86.0 - Dehydration (3) CAD (coronary artery disease): Assessment/Problem Details: Stable with no manifestations of ischemia. Code(s): I25.10 - Atherosclerotic heart disease of [place] coronary artery without angina pectoris Plan As above. Documented By: Dung Ruiz MD [id number] Signed By: <Electronically signed by MD Dung Ruiz> 07/11/22 1301 [facility] Work Phone: 1(626) 599-814112-17-2022 History and physical note Author Mik Santiago [facility] 2022 8:55pm Note Date/Time 2022 7:11pm [facility] [address] [place] [address] Hospitalist H&P Signed Patient: Dung Coffman MR#: [id number] : 1950 Acct:[id number] Age/Sex: 72 / M Adm Date: 2 Loc: Room: [address] [place] [address] Type: ADM IN Attending Dr: Mik Santiago DO Copies to: MD Mik Amor, DO Elizabeth Ramey APRN~ HPI DATE OF EXAMINATION: 07/10/22 CHIEF COMPLAINT: Dizziness HISTORY OF PRESENT ILLNESS: Patient is a 72-year-old male with a past medical history of PA, pacemaker with stent placement x7 who presented to the ED with complaints of dizziness for about 5 days. He describes it as lightheadedness, and he feels like he is goingto pass out and he attributes it to dehydration secondary to his diuretics, he is on spironolactone 25 mg daily. He denies headaches, nausea, diaphoresis. Patient seen and examined. Denies chest pain or palpitation. No cough, dyspnea, or pain with inspiration. No abdominal pain or indigestion, constipation or diarrhea, nausea or vomiting. No dysuria or retention. No headache or dizziness. No fevers Upon arrival to the ER, EKG showed atrial paced rhythm with 50 bpm. Creatinine 2.28. Low blood pressures in the 90s/50s. He was administered normal saline 2 L bolus. His pacemaker was interrogated and was found functioning appropriately. He will be admitted by the hospitalist team for further evaluation and management. Review of Systems Review of Systems Review of systems: 10 point review of systems obtained, negative unless noted in the HPI below [facility] Attestation Statement: The following information was validated with the patient. Source: Old Records Reviewed Vaccinated for COVID-19?: Yes Medical History (Updated 07/10/22 @ 20:52 by Mik Santiago DO) Chronic systolic (congestive) heart failure Myocardial infarction Four instances of PA: 2011, 2013, 2016, 2019 Pacemaker Surgical History History of heart artery stent First heart attack had 1 stent placed. Second heart attack had 2 placed. Third heart attack had 4 placed. Family History Other Brain tumor Lung cancer Pancreatic cancer Social History Smoking Status: Current every day smoker Tobacco Type: cigarettes Substance Use Type: Marijuana Meds Medications and Allergies Allergies No Known Drug Allergies Allergy (Verified 07/10/22 14:57) Unknown Reaction Home Medications atorvastatin 40 mg tablet 40 mg PO QHS 03/29/20 [History Confirmed 07/10/22] carvedilol 6.25 mg tablet 12.5 mg PO DAILY 03/29/20 [History Confirmed 07/10/22] clopidogrel 75 mg tablet 75 mg PO DAILY 03/29/20 [History Confirmed 07/10/22] spironolactone 25 mg tablet 25 mg PO DAILY 03/29/20 [History Confirmed 07/10/22] aspirin 81 mg chewable tablet 81 mg PO DAILY 03/30/20 [History Confirmed 07/10/22] amiodarone 200 mg tablet 200 mg PO BID 30 days #60 tabs 04/03/20 [Rx Confirmed 07/10/22] amlodipine 10 mg tablet 10 mg PO DAILY 07/10/22 [History Confirmed 07/10/22] potassium chloride 10 mEq tablet,extended release 10 meq PO DAILY 07/10/22 [History Confirmed 07/10/22] sacubitril 24 mg-valsartan 26 mg tablet (Entresto) 1 tab PO ACHS 07/10/22 [History Confirmed 07/10/22] Allergy/Medication Comments: Please note that the home medication list DOES contain elements that are not accurate. This list of home medications will be updated during the hospital stay as more information becomes available. Specifically: Looking at the retail pharmacy history: The patient regularly picks up: Lasix 20 mg p.o. daily Exam Physical Exam Vital Signs: Temp Pulse Resp BP Pulse Ox O2 Del Method 97 F L 50 L 18 97/52 L 100 Room Air 07/10/22 14:36 07/10/22 17:37 07/10/22 17:37 07/10/22 17:37 07/10/22 17:37 07/10/22 17:37 Narrative: CONST- Appears well -developed and well nourished No acute distress. HEAD - Normocephalic and atraumatic EENT-Sclera nonicteric and conjunctive are nonerythemic, moist oral mucosa, pharynx clear NECK-Supple, no cervical lymphadenopathy CARDIAC-normal rate, regular rhythm, normal S1 & S2. PULM-diminished without wheeze or rhonchi, RA, no accessory muscle use or cough noted ABD - Soft. Bowel sounds are normal. No distention No tenderness EXTREM-no edema BLE calves nontender SKIN- W/D good turgor MS- MAEX4 spontaneously with equal with equal strength NEURO- A&Ox3 speech clear and tongue midline, equal facial symmetry no focal motor deficits PSYCH-Mood, affect and behavior appropriate Results Lab Results Labs: Laboratory Last Values Corrected WBC 6.8 X10E3/uL (4.1-10.5) 07/10/22 14:48 Uncorrected WBC Count 6.8 x10E3/uL (4.1-10.5) 07/10/22 14:48 RBC 3.70 X10E6/uL (3.90-5.60) L 07/10/22 14:48 Hgb 12.2 g/dL (13.0-17.0) L 07/10/22 14:48 Hct 36.7 % (38.8-50.0) L 07/10/22 14:48 MCV 99.2 fl (83.5-101) 07/10/22 14:48 MCH 33.0 pg (27.5-35.2) 07/10/22 14:48 MCHC 33.3 g/dL (32.5-35.6) 07/10/22 14:48 RDW 13.2 % (12.0-14.8) 07/10/22 14:48 Plt Count 136 x10E3/uL (150-450) L 07/10/22 14:48 MPV 9.2 fl (6.6-10.1) 07/10/22 14:48 Neut % (Auto) 71.5 % (.) 07/10/22 14:48 Lymph % (Auto) 20.4 % (.) 07/10/22 14:48 Caswell % (Auto) 6.9 % (.) 07/10/22 14:48 Eos % (Auto) 0.6 % (.) 07/10/22 14:48 Baso % (Auto) 0.6 % (.) 07/10/22 14:48 Nucleat RBC Rel Count 0.1 /100 WBC (0-0.5) 07/10/22 14:48 Neut # (Auto) 4.9 x10E3/uL (1.8-7.7) 07/10/22 14:48 Lymph # (Auto) 1.4 x10E3/uL (1.00-4.8) 07/10/22 14:48 Caswell # (Auto) 0.5 x10E3/uL (0.0-0.8) 07/10/22 14:48 Eos # (Auto) 0.0 x10E3/uL (0.0-0.45) 07/10/22 14:48 Baso # (Auto) 0.0 x10E3/uL (0.0-0.2) 07/10/22 14:48 Monocyte Dist Width 15.55 % (0.00-20.00) 07/10/22 14:48 PT 11.9 Seconds (9.0-12.9) 07/10/22 14:48 INR 1.1 07/10/22 14:48 APTT 28.8 Seconds (25.1-36.5) 07/10/22 14:48 PHA Creatinine Clear 24.00 07/10/22 14:48 Sodium 135 mmol/L (136-146) L 07/10/22 14:48 Potassium 4.0 mmol/L (3.5-5.1) 07/10/22 14:48 Chloride 105 mmol/L (95-114) 07/10/22 14:48 Carbon Dioxide 18.7 mmol/L (22.0-30.0) L 07/10/22 14:48 Anion Gap 15.3 mEq/L (6.0-15.0) H 07/10/22 14:48 BUN 20 mg/dL (9-23) 07/10/22 14:48 Creatinine 2.28 mg/dL (0.64-1.27) H 07/10/22 14:48 Est GFR ( Amer) 34 mL/Min 07/10/22 14:48 Est GFR (Non-Af Amer) 28 mL/Min 07/10/22 14:48 Glucose 115 mg/dL (70-100) H 07/10/22 14:48 Calcium 8.4 mg/dL (8.2-10.2) 07/10/22 14:48 Magnesium 2.1 mg/dL (1.6-2.6) 07/10/22 14:48 Total Bilirubin 0.6 mg/dL (0.3-1.2) 07/10/22 14:48 AST 37 U/L (10-42) 07/10/22 14:48 ALT 44 U/L (10-60) 07/10/22 14:48 Alkaline Phosphatase 55 U/L (32-92) 07/10/22 14:48 Total Creatine Kinase 96 U/L (22-269) 07/10/22 14:48 CK-MB (CK-2) 2.7 ng/mL (0.6-6.3) 07/10/22 14:48 CK-MB (CK-2) Rel Index 2.8 % (0.00-2.50) H 07/10/22 14:48 Troponin I High Sens 11 pg/mL (0-20) 07/10/22 14:48 B-Natriuretic Peptide 221.0 pg/mL (5-100) H 07/10/22 14:48 Total Protein 6.4 gm/dL (6.1-7.9) 07/10/22 14:48 Albumin 3.5 gm/dL (3.2-5.5) 07/10/22 14:48 Globulin 2.9 gm/dL 07/10/22 14:48 Albumin/Globulin Ratio 1.2 07/10/22 14:48 TSH 3rd Generation 0.96 uIU/mL (0.45-5.33) 07/10/22 14:48 Urine Opiates Screen Negative (Negative) 07/10/22 15:26 Ur Barbiturates Screen Negative (Negative) 07/10/22 15:26 Ur Phencyclidine Scrn Negative (Negative) 07/10/22 15:26 Ur Amphetamines Screen Negative (Negative) 07/10/22 15:26 U Benzodiazepines Scrn Negative (Negative) 07/10/22 15:26 Urine Cocaine Screen Negative (Negative) 07/10/22 15:26 U Marijuana (THC) Screen Positive (Negative) H 07/10/22 15:26 SARS-CoV-2 Rap RNA(RT-PCR) Negative (Negative) 07/10/22 14:56 Microbiology Results Micro: Microbiology - Results from entire visit 07/10/22 14:56 Nasopharyngeal SARS-CoV-2, Influenza & RSV (PCR) - Final A&P - Hospitalist Assessment/Plan (1) Near syncope: (2) Orthostatic hypotension: (3) LISA (acute kidney injury): (4) CAD (coronary artery disease): (5) Dehydration: (6) Chronic systolic (congestive) heart failure: Plan Orthostatic hypotension?likely medication induced, he is on a beta-kosta Acute kidney injury, likely due to poor oral intake and low blood pressures Metabolic acidosis secondary to renal function Patient presented with 4 to 5 days of dizziness, lightheadedness especially withposition change which he attributed to his diuretic ?EKG, showed atrial paced rhythm with 50 bpm, pacemaker was interrogated in the ED, functioning well ?Creatinine 2.28, recent baseline unknown. Last creatinine on record 0.80 in 2019 ?Positive orthostatics in the ER ?Normal saline 2000 L given in ED, will hold off on fluids due to EF of 20 to 25% seen on echocardiogram in 2019, will reassess in the a.m. unable to do echo over the weekend ? Bladder scan ordered in the ED ?We will hold beta-kosta and ARB's ?Cardiology consulted ?Check urine lytes, monitor output, renally dose medications Chronic conditions: PA with stent placement x7/pacemaker CODE STATUS: Full code DVT prophylaxis: Heparin ++++ ++++ I personally saw this patient on the day of the encounter in the ER, reviewed the relevant history, performed the sam elements of the physical exam, and discussed and formulated the plan of care with the Nurse Practitioner, and I confirm the Nurse Practitioner's documentation as written. The patient describes that he had tremendous amount of leg edema 3 months ago with edema extending up above his knees. He describes he was placed on the water pills which includes Lasix 20 mg p.o. daily, spironolactone 25 mg p.o. daily accompanied with potassium 10 mg p.o. daily, looking at the retail pharmacy history. He said this did improve the leg edema. He describes that this problem with orthostatic hypotension and near syncope wasgoing on for the last week but got really bad today. He just could not toleratestanding up out of bed. After getting 1500 mL of IV fluids here in the emergency room he says he is feeling much better. He has a sensation that he needs to void. He wants to drink some water. Because of the acute kidney injury blood pressure medications will be placed on hold, including the Entresto because of the angiotensin receptor kosta. His Lasix and spironolactone will be placed on hold. Amlodipine could be continued. In the long run I wonder if Norvasc could be de-escalated (which would reduce the tendency for edema) and perhaps loop diuretics like furosemide could be replaced with an SGLT2 inhibitor. Documented By: Elizabeth Ramey APRN 07/10/221858 Signed By: <Electronically signed by ETHAN Ramey> 07/10/221934 <Electronically signed by Mik Santiago DO> 07/10/222054 [facility] Work Phone: 1(963) 731-126612-17-2022 History and physical note Author Mik Santiago [facility] 2022 8:55pm Note Date/Time 2022 7:11pm [facility] [address] [place] [address] Hospitalist H&P Signed Patient: Dung Coffman MR#: [id number] : 1950 Acct:[id number] Age/Sex: 72 / M Adm Date: 2 Loc: Room: [address] [place] [address] Type: ADM IN Attending Dr: Mik Santiago DO Copies to: MD Mik Amor DO Linda Obika, APRN~ HPI DATE OF EXAMINATION: 07/10/22 CHIEF COMPLAINT: Dizziness HISTORY OF PRESENT ILLNESS: Patient is a 72-year-old male with a past medical history of PA, pacemaker with stent placement x7 who presented to the ED with complaints of dizziness for about 5 days. He describes it as lightheadedness, and he feels like he is goingto pass out and he attributes it to dehydration secondary to his diuretics, he is on spironolactone 25 mg daily. He denies headaches, nausea, diaphoresis. Patient seen and examined. Denies chest pain or palpitation. No cough, dyspnea, or pain with inspiration. No abdominal pain or indigestion, constipation or diarrhea, nausea or vomiting. No dysuria or retention. No headache or dizziness. No fevers Upon arrival to the ER, EKG showed atrial paced rhythm with 50 bpm. Creatinine 2.28. Low blood pressures in the 90s/50s. He was administered normal saline 2 L bolus. His pacemaker was interrogated and was found functioning appropriately. He will be admitted by the hospitalist team for further evaluation and management. Review of Systems Review of Systems Review of systems: 10 point review of systems obtained, negative unless noted in the HPI below [facility] Attestation Statement: The following information was validated with the patient. Source: Old Records Reviewed Vaccinated for COVID-19?: Yes Medical History (Updated 07/10/22 @ 20:52 by Mik Santiago DO) Chronic systolic (congestive) heart failure Myocardial infarction Four instances of PA: 2011, 2013, 2016, 2019 Pacemaker Surgical History History of heart artery stent First heart attack had 1 stent placed. Second heart attack had 2 placed. Third heart attack had 4 placed. Family History Other Brain tumor Lung cancer Pancreatic cancer Social History Smoking Status: Current every day smoker Tobacco Type: cigarettes Substance Use Type: Marijuana Meds Medications and Allergies Allergies No Known Drug Allergies Allergy (Verified 07/10/22 14:57) Unknown Reaction Home Medications atorvastatin 40 mg tablet 40 mg PO QHS 03/29/20 [History Confirmed 07/10/22] carvedilol 6.25 mg tablet 12.5 mg PO DAILY 03/29/20 [History Confirmed 07/10/22] clopidogrel 75 mg tablet 75 mg PO DAILY 03/29/20 [History Confirmed 07/10/22] spironolactone 25 mg tablet 25 mg PO DAILY 03/29/20 [History Confirmed 07/10/22] aspirin 81 mg chewable tablet 81 mg PO DAILY 03/30/20 [History Confirmed 07/10/22] amiodarone 200 mg tablet 200 mg PO BID 30 days #60 tabs 04/03/20 [Rx Confirmed 07/10/22] amlodipine 10 mg tablet 10 mg PO DAILY 07/10/22 [History Confirmed 07/10/22] potassium chloride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
--- NOTE | 2024-10-03 10:30 | XR_ITS ---
The [address] [address] Patient Name: ANTONIO COFFMAN MRN: [id number] date: 1950 Sex: M Assigned Patient Location: [facility] Current Patient Location: [facility] Accession/Order Number: [id number] Exam Date: 10/03/2024 11:13 Report Date: 10/03/2024 11:18 At the request of: ABBY PALOMO APRN Procedure: XR chest 2V PA AND LATERAL CHEST: CLINICAL HISTORY: Mcc Use Amiodarone COMPARISON: 11/26/2023 and 11/24/2023 x-ray and CT A left-sided pacemaker is again noted. The lungs are hyperinflated. There is minimal coarsening of interstitial markings. Basilar scarring and/or atelectasis is seen. There is no focal parenchymal consolidation, effusion or pneumothorax. The heart is borderline enlarged. The hilar and mediastinal silhouettes are within normal limits. The visualized bony thorax is intact. Subtle dextroscoliotic curvature and minimal endplate spurring are seen. There is a lower cervical fusion plate. XR/XR chest 2V IMPRESSION: OBSTRUCTIVE LUNG DISEASE WITH MINOR CHRONIC CHANGES. BORDERLINE CARDIOMEGALY. NO ACUTE FINDINGS Impression dictated by: Sherrie Moody M.D.10/03/2024 11:18 AM Dictation Location: [place] [address] Electronically authenticated by: [id number] Y Date: 10/03/2024 11:18
== END 2024-10-03 10:11 | disposition home or self-care (01) ==
LOC: RAD 10:12
PROVIDERS: PCP Family Medicine; Visit Provider Nurse Practitioner Family
DX: Z79.899 Other long term (current) drug therapy (principal); Z95.0 Presence of cardiac pacemaker; J44.9 Chronic obstructive pulmonary disease, unspecified; I51.7 Cardiomegaly
CPT/HCPCS: 71046

== ENCOUNTER 2024-10-12 13:50 | Outpatient (OUT) | payer OTHER, SELFPAY ==
[2024-10-12 14:59] LABS: Anion Gap 6.1; BUN Creatinine Ratio 8.4; Calcium 8.5 mg/dL (8.5-10.1); Carbon Dioxide 30.6 mmol/L (21.0-32.0); Chloride 106 mmol/L (98-107); Estimated GFR (African America >60 (>=60 mL/min/1.73m^2); Estimated GFR (Non-African Ame >60 (>=60 mL/min/1.73m^2); Glucose 98 mg/dL (74-106); Potassium 3.7 mmol/L (3.5-5.1); Sodium 139 mmol/L (136-145)
== END 2024-10-12 13:51 | disposition home or self-care (01) ==
LOC: LAB 13:51
PROVIDERS: PCP Family Medicine; Visit Provider Internal Medicine Interventional Cardiology
DX: I50.22 Chronic systolic (congestive) heart failure (principal)
CPT/HCPCS: 36415; 80048

== ENCOUNTER 2024-10-26 13:05 | Outpatient (OUT) | payer OTHER, SELFPAY ==
--- NOTE | 2024-10-26 13:00 | CA_ITS ---
Patient Name: ANTONIO COFFMAN MR#: [id number] : 1950 Exam Date: 10/26/2024 Ordering Doctor: DR MARSHAL MILLER M.D. ECHOCARDIOGRAM REPORT PROCEDURE: CA ECHO DOPPLER COMPLETE INDICATIONS: Heart failure with reduced ejection fraction, NH, cardiac stents, defibrillator, smoker. hypertension COMPARISON: None. DESCRIPTION: COMPLETE ECHOCARDIOGRAM Real-time transthoracic echocardiography with 2D, M-mode, spectral and color flow Doppler performed. QUALITY: Technical quality was good. LEFT VENTRICLE: Mild dilatation. Mild eccentric left ventricular hypertrophy. Severely reduced systolic function. There is akinesis of the mid and distal septum, apex and apical segments. No evidence of thrombus. LV EF: Severely reduced left ventricular ejection fraction, (<25%). DIASTOLIC: ATRIAL SEPTUM: Visually appears intact. LEFT ATRIUM: Moderate dilatation. RIGHT ATRIUM: Normal chamber size. RIGHT VENTRICLE: Normal chamber size. Normal right ventricular systolic function. Pacer wire present. TRICUSPID VALVE: Normal mobility and thickness. No stenosis with mild regurgitation. Doppler studies reveal severely (>60) elevated right sided pressures. RVSP 71 mmHg MITRAL VALVE: No mitral valve stenosis. Trivial mitral regurgitation. Mildly thickened leaflets. AORTIC VALVE: Normal trileaflet appearance. No visible sclerosis. Normal leaflet mobility. No evidence of aortic valve stenosis. Trivial aortic regurgitation. AORTIC ROOT: Normal diameter and appearance, measuring 3.7 cm. Ascending aorta is normal in size, measuring 3.2 cm. PULMONIC VALVE: Normal thickness and mobility. No stenosis. Trivial regurgitation. PERICARDIUM: No evidence of pericardial effusion. IVC: IVC is normal in size, does not fully collapse. PLEURA: CONCLUSION: 1. Mild eccentric left ventricular hypertrophy with severely reduced systolic function. LVEF is estimated at 20-25%. Segmental wall motion abnormalities seen with akinesis of the mid and distal septum, apex and apical segments. No evidence of thrombus. 2. Normal right ventricular size and systolic function. 3. No significant valvular dysfunction. 4. Severely elevated right sided pressures. RVSP is 71 mmHg. Adult Echocardiography Procedure Report Left Ventricle LVEDD (3.7 - 5.6 cm): 6.01 cm LVESD (2.2 - 4.0 cm): 4.54 cm LVIVS thickness (0.6 - 1.2 cm): 1.28 cm LVPW thickness (0.5 - 1.0 cm): 1.22 cm e': 0.05 m/s E - e': 8.34 LVOT Max Gradient: 1.60 mm[Hg] LVOT Area (cm2): 0.63 m/s Peak Velocity (LVOT): 0.63 m/s Mean Velocity (LVOT): 0.43 m/s LVOT Diameter 2.46 cm Left Atrium LA Volume Index (2D A2C): 37.09 ml/m2 Left Atrium Systolic Dimension: 4.46 cm Mitral Valve MV E to A Ratio: 0.38 Mitral Valve A-Wave Peak Velocity: 1.02 m/s Mitral Valve E-Wave Peak Velocity: 0.38 m/s Right Ventricle Aorta AO Root Diam: 3.69 cm Ascending Ao Diam: 3.18 cm Aortic Valve AoV Area (Peak Ari): 3.38 cm2, 3.38 cm2 AoV Area (VTI): 4.41 cm2, 4.41 cm2 Peak Velocity(Antegrade Flow): 0.89 m/s Peak Gradient(Antegrade Flow): 3.14 mm[Hg] Mean Velocity(Antegrade Flow): 0.56 m/s Mean Gradient(Antegrade Flow): 1.49 mm[Hg] Velocity Time Integral: 21.16 cm Tricuspid Valve Peak Velocity (Regurgitant Flow): 3.97 m/s, 3.38 m/s, 3.30 m/s Pulmonic Valve Mean Gradient: 1.46 mm[Hg] Mean Velocity: 0.56 m/s Peak Velocity: 0.90 m/s, 0.80 m/s Peak Gradient: 2.58 mm[Hg], 3.26 mm[Hg] Right Atrium Right Atrium Systolic Pressure: 41.47 ml, 41.47 ml Dictated by: Marshal Miller M.D. on 10/26/2024 at 16:42 Approved by: Marshal Miller M.D. on 10/26/2024 at 16:54
[2024-10-26 14:31] LABS: Anion Gap 13.3; BUN Creatinine Ratio 11.2; Calcium 8.6 mg/dL (8.5-10.1); Carbon Dioxide 26.5 mmol/L (21.0-32.0); Chloride 108 mmol/L (98-107); Estimated GFR (African America >60 (>=60 mL/min/1.73m^2); Estimated GFR (Non-African Ame >60 (>=60 mL/min/1.73m^2); Glucose 101 mg/dL (74-106); Potassium 3.8 mmol/L (3.5-5.1); Sodium 144 mmol/L (136-145)
== END 2024-10-26 13:06 | disposition home or self-care (01) ==
LOC: CARD 13:05
PROVIDERS: PCP Family Medicine; Visit Provider Internal Medicine Interventional Cardiology
DX: I50.22 Chronic systolic (congestive) heart failure (principal); I25.10 Atherosclerotic heart disease of native coronary artery without angina pectoris
CPT/HCPCS: 36415; 80048; 93306

== ENCOUNTER 2025-02-01 09:45 | Outpatient (OUT) | payer OTHER, SELFPAY ==
--- OUTSIDE RECORDS SUMMARY | 2023-12-29 07:58 | XMS_ITS ---
Author Organization The [facility] in [place] Address [address] [place] [address] Care Team Providers Care Outside Sales Inspector Name Role Phone Roldan Khanna MD Primary Care Provider Joel Herrera [phone] REASON FOR VISIT HO-Whbhrpjr-Daqxqwywtpk Encounters Encounter Location Date Provider Diagnosis Pulmonary Medicine [place] [address] [place] [address] 12/29/2023 Joel Galdamez Plan Of Treatment No Information Progress Notes * Dung LUNA LDOB: [birth year] (73 yo M)Acc No.[id number]:12/29/2023 Patient: Brianna VIRAJDung :1950 A ge:73 Y S ex:Male Address:[address] [place] [address] t [facility], [place], [address] * Addendum: * true * Date: Generated for Aron hollins/Shantelle/eTransmitting on: 0 02/01/2025 09:50 AM EDT
--- OUTSIDE RECORDS SUMMARY | 2024-03-08 06:47 | XMS_ITS ---
Author Organization The [facility] in [place] Address [address] [place] [address] Care Team Providers Care Supervisor Plate Pasting Name Role Phone Roldan Khanna MD Primary Care Provider Joel Herrera [phone] REASON FOR VISIT Appointment Cancel Encounters Encounter Location Date Provider Diagnosis Pulmonary Medicine [place] [address] [place] [address] 03/08/2024 Joel Galdamez Plan Of Treatment No Information Progress Notes * Dung LUNA LDOB: [birth year] (73 yo M)Acc No.[id number]:03/08/2024 Patient: Brianna Dung CALI :1950 A ge:73 Y S ex:Male Address:[address] [place] [address] [address], [place], [address] * true * Date: Generated for Printi ng/Fakerig/eTransmitting on: 0 02/01/2025 09:50 AM EDT
--- OUTSIDE RECORDS SUMMARY | 2024-03-13 10:00 | XMS_ITS ---
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 CLINICAL RESEARCH TECH-COPD. * Medical History: Objective: * Vitals: Assessment: Plan: * Treatment: * * Electronic signature of Corine Galdamez DO on 02/01/2025 at 09:50 AM EDT Sign off status: Pending Visit Status: C ANC (Cancelled) * Provider: Dez Gladamez DO Date: 03/13/2024 Generated for Printi ng/Faxing/eTransmitting on: 0 02/01/2025 09:50 AM EDT
--- OUTSIDE RECORDS SUMMARY | 2025-02-01 09:50 | XMS_ITS | Encounter Summary ---
Author Organization [facility] Address [address] [place] [address] Care Team Providers Care Firewall Administrator Name Role Phone Roldan Khanna MD Primary Care Provider [phone] Reason for Visit * Reason Comments Med Refill Encounter Details Date Type Department Care Team ([facility] Contact Info) Description 10/02/2023 Refill [facility] [address] [place] [address] Filemon Miller MD [address] [facility] [address] [facility] [phone] Chronic systolic (congestive) heart failure (CMS/HCC) Social History Tobacco Use Types Packs/Day Years Used Date Smoking Tobacco: Every Day Cigarettes Smokeless Tobacco: Never Alcohol Use Standard Drinks/Week Comments Not Currently 0 (1 standard drink = 0.6 oz pur e alcohol) [place] Safety & Environment Answer Date Rec orded Fear of Current or Ex-Partner Not on file Emotionally Abused Not on file 09/15/2023 Physically Abused Not on file 09/15/2023 Sexually Abused Not on file 09/15/2023 Physically or Sexually Abused Not on file Sex and Gender Information Value Date Recorded Sex Assigned at Not on file Legal Sex Male 12:31 AM EDT Gender Identity Not on file Sexual Orientation Not on file documented as of this encounter Plan of Treatment Scheduled Procedures Name Priority Associated Diagnoses Date/Ti me BIVENTRICULAR ICD UPGRADE Cardiomyopathy, ischemic documented as of this encounter Visit Diagnoses Diagnosis Chronic systolic (congestive) heart failure (CMS/HCC) documented in this encounter Care Teams Firewall Administrator Relationship Specialty Start Date End Date Roldan Khanna MD [address] [place] [address] PCP - General Family Medicine 01/26/23 documented as of this encounter
--- OUTSIDE RECORDS SUMMARY | 2025-02-01 09:50 | XMS_ITS | Encounter Summary ---
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 [address] [place] [address] Acute on chronic systolic (congestive) heart failure (CMS/HCC) Social History Tobacco Use Types Packs/Day Years Used Date Smoking Tobacco: Never Assessed Sex and Gender Information Value Date Recorded Sex Assigned at Not on file Legal Sex Male 12:31 AM EDT Gender Identity Not on file Sexual Orientation Not on file documented as of this encounter Plan of Treatment Scheduled Procedures Name Priority Associated Diagnoses Date/Ti me BIVENTRICULAR ICD UPGRADE Cardiomyopathy, ischemic documented as of this encounter Visit Diagnoses Diagnosis Acute on chronic systolic (congestive) heart failure (CMS/HCC) documented in this encounter Care Teams Truss Assembler Relationship Specialty Start Date End Date Roldan Khanna MD [address] [place] [address] PCP - General Family Medicine 01/26/23 documented as of this encounter
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
--- OUTSIDE RECORDS SUMMARY | 2025-02-01 09:50 | XMS_ITS | Patient Health Record ---
Author Organization [facility] [place] Address [address] [place] [address] Care Team Providers Care Machine Driller Name Role Phone Roldan Khanna MD Primary Care Provider Joel Herrera Unavailable [phone] Reason For Referral No Information Encounters Encounter Location Date Provider Diagnosis Pulmonary Medicine [place] [address] [place] [address] 03/08/2024 Joel Galdamez Plan Of Treatment No Information Insurance Providers Payer Name Payer Address Payer Phone Subscriber Number Group Number Insured Name Patient Relationship to Insured Coverage Start Date Coverage End Date [employer] [address] [place]IER GLE[place] [phone] Dung Estrada Self - patient is the insured
--- OUTSIDE RECORDS SUMMARY | 2025-02-01 09:50 | XMS_ITS | Clinical Summary ---
Author Organization [facility] Address [address] [place] [address] Care Team Providers Care Welt Beater Name Role Phone Unavailable Primary Care Provider Unavailabl e Social History Tobacco Use Types Packs/Day Years Used Date Smoking Tobacco: Never Assessed Sex and Gender Information Value Date Recorded Sex Assigned at Not on file Legal Sex Male 9:41 AM EDT Gender Identity Not on file Sexual Orientation Not on file Plan of Treatment Not on file Insurance [employer]
--- OUTSIDE RECORDS SUMMARY | 2025-02-01 09:50 | XMS_ITS | Clinical Summary ---
Author Organization [facility] Address [address] [place] [address] Phone Care Team Providers Care Insulator Tester Name Role Phone Unavailable Primary Care Provider Unavailabl e Social History Tobacco Use Types Packs/Day Years Used Date Smoking Tobacco: Never Assessed Sex and Gender Information Value Date Recorded Sex Assigned at Not on file Legal Sex Male 2:53 PM EST Gender Identity Not on file Sexual Orientation Not on file Plan of Treatment Health Maintenance Due Date Last Done Comments CT Colonography 1951 Colonoscopy 1951 Colorectal Cancer Screening 1951 FIT-DNA (Cologuard) 1951 FIT 1951 Lipid Panel 1950 Sigmoidoscopy 1951 Yearly Adult Physical 1951 Hepatitis C Screening 1969 DTaP/Tdap/Td Vaccines (1 - Tdap) 1973 Pneumococcal Vaccine (1 of 1 - PCV) 2001 Zoster Vaccines (1 of 2) 2001 COVID-19 Vaccine (1 - 2023-2 5 season) 2024 Influenza Vaccine (#1) 2025 RSV High Risk: (Elderly (60+ ) or Population) (1 - 1-dose 75+ series) 2026 HIB Vaccines Aged Out No longer eligi ble based on patient's age to complete this topic HPV Vaccines (No Doses Required) Completed Hepatitis A Vaccines Aged Out No long er eligible based on patient's age to complete this topic Hepatitis B Vaccines Aged Out No long er eligible based on patient's age to complete this topic IPV Vaccines Aged Out No longer eligi ble based on patient's age to complete this topic Meningococcal Vaccine Aged Out No nichole niki eligible based on patient's age to complete this topic Rotavirus Vaccines Aged Out No longer eligible based on patient's age to complete this topic
--- OUTSIDE RECORDS SUMMARY | 2025-02-01 09:50 | XMS_ITS | Patient Health Record ---
Author Organization [facility] Address [address] [place] [address] Care Team Providers Care Blood Donor Unit Assistant Name Role Phone XXXPauline Zarate Primary Care Provider Reason For Referral No Information Medications Medication SIG (Take, Route, Frequency, Duration) Notes Start Date End Date Status Lisinopril 2.5 MG 1 tablet Orally Once a day; Duration: 90 days Active Plavix 75 MG 1 tablet Orally Once a day; Duration: 90 days start after efficent Active Omeprazole 20 MG Orally twice a day Active Chantix Starting Month Roland 0.5 MG X 11 & 1 MG X 42 as directed Orally 12/19/2015 Active Lipitor 80 MG 1 tablet Orally Once a day; Duration: 90 days Active Effient 10 MG Orally once a day x 30 days then start plavix Not-Taking Carvedilol 6.25 MG 1 tablet with food Orally Twice a day Active Nitroglycerin 0.4 MG prn CP, no more than 3 in 24 hours Sublingual prn; Duration: 90 days Active Problems Problem Type SNOMED Code ICD Code Onset Dates Problem Status W/U Status Risk Notes Problem Hyperlipidemia (35700022) Hyperlipidemia (E78.5) Active confirmed Problem Hypertension (03750874) Hypertension (I10) Active confirmed Problem Tobacco abuse (5647850141) Tobacco abuse (Z72.0) Active confirmed Problem Myocardial infarction (50621079) Myocardial infarction (I21.3) Active confirmed Plan Of Treatment No Information Insurance Providers Payer Name Payer Address Payer Phone Subscriber Number Group Number Insured Name Patient Relationship to Insured Coverage Start Date Coverage End Date [employer] [place] [address] [place] [phone] [id number] ANTONIO COFFMAN Self - patient is the insured Medical (General) History Medical History History ICD Code X2 [place] High Cholesterol Hypertension [place] Surgical History Surgery Date(Month/Year) 4 stents neck plate broken ankle 2 screws broken tibia in 2 places Lt thigh gash hip bone in neck Stent 10/2015 Hospitalization History Reason Date(Month/Year) [place] 10/2015
--- OUTSIDE RECORDS SUMMARY | 2025-02-01 09:50 | XMS_ITS | Encounter Summary ---
Author Organization [facility] Address [address] [place] [address] Care Team Providers Care Karate Black Belt Name Role Phone Roldan Khanna MD Primary Care Provider [phone] Encounter Details Date Type Department Care Team ([facility] Contact Info) Description 11/19/2024 Orders Only [facility] [address] [place] [address] Malia Astudillo MD [address] [place] [address] Social History Tobacco Use Types Packs/Day Years Used Date Smoking Tobacco: Every Day Cigarettes Smokeless Tobacco: Never Alcohol Use Standard Drinks/Week Comments Not Currently 0 (1 standard drink = 0.6 oz pur e alcohol) [facility] Utilities Answer Date Recorded In the past 12 months has [facility] [employer], gas, oil, or water [employer] threatened to shut off services in your [...] often do you attend chur ch or hindu services? Never 11/24/2023 Do you belong to any clubs o r organizations such as anabaptist groups, unions, fraternal or athletic groups, or [...] and heating? Not hard at all 11/24/2023 [facility] of Occupat ional Health - Occupational Stress [...] Cardiomyopathy, ischemic documented as of this encounter Procedures Procedure Name Priority Date/Time Associated Diagnosis Comments CARDIAC DEVICE CHECK - REMOTE - ICD Routine 11/19/2024 12:00 AM EDT documented in this encounter Results * Cardiac device check - Remote ICD (11/19/2024 12:00 AM EDT) Anatomical Region Laterality Modality Other 11/19/2024 Malia Astudillo MD CV IMPLANTABLE CARDIAC DEVICE PROCEDURES Final Result documented in this encounter Visit Diagnoses Not on filedocumented in this encounter Care Teams Karate Black Belt Relationship Specialty Start Date End Date Roldan Khanna MD [address] [place] [address] PCP - General Family Medicine 01/26/23 documented as of this encounter
--- OUTSIDE RECORDS SUMMARY | 2025-02-01 09:50 | XMS_ITS | Encounter Summary ---
Author Organization [facility] Address [address] [place] [address] Care Team Providers Care Editing Clerk Name Role Phone Unavailable Primary Care Provider Unavailabl e Encounter Details Date Type Department Care Team (Late Contact Info) Description 02/09/2024 Abstract [facility] [address] [place] [address] Unallocated, [facility] Provider, [address] [place] [address] Social History Tobacco Use Types Packs/Day Years Used Date Smoking Tobacco: Never Assessed Sex and Gender Information Value Date Recorded Sex Assigned at Not on file Legal Sex Male 9:41 AM EDT Gender Identity Not on file Sexual Orientation Not on file documented as of this encounter Plan of Treatment Not on file documented as of this encounter Visit Diagnoses Not on filedocumented in this encounter
--- OUTSIDE RECORDS SUMMARY | 2025-02-01 09:50 | XMS_ITS | Encounter Summary ---
Author Organization [facility] Address [address] [place] [address] Care Team Providers Care Bumboater Name Role Phone Roldan Khanna MD Primary Care Provider [phone] Encounter Details Date Type Department Care Team (Late st Contact Info) Description 01/22/2025 Orders Only [facility] Heart at [facility] [address] [place] [address] Lori Nelson MA Social History Tobacco Use Types Packs/Day Years Used Date Smoking Tobacco: Every Day Cigarettes Smokeless Tobacco: Current Comments:Vape 2 times Alcohol Use Standard Drinks/Week Comments Not Currently 0 (1 standard drink = 0.6 oz pur e alcohol) [facility] Utilities Answer Date Recorded In the past 12 months has e electric, gas, oil, or water company threatened to shut off services in your [...] often do you attend chur ch or yazdanism services? Never 11/24/2023 Do you belong to any clubs o r organizations such as spiritism groups, unions, fraternal or athletic groups, or [...] and heating? Not hard at all 11/24/2023 [facility] of Occupat ional Health - Occupational Stress [...] on filedocumented in this encounter Care Teams Bumboater Relationship Specialty Start Date End Date Roldan Khanna MD [address] [place] [id number] PCP - General Family Medicine 01/26/23 documented as of this encounter
--- OUTSIDE RECORDS SUMMARY | 2025-02-01 09:50 | XMS_ITS | Encounter Summary ---
Author Organization [facility] Address [address] [place] [address] Care Team Providers Care Resourcing Consultant Name Role Phone Roldan Khanna MD Primary Care Provider [phone] Reason for Visit * Reason Comments Med Refill Encounter Details Date Type Department Care Team ([facility] st Contact Info) Description 09/26/2023 Refill [facility] Heart at [facility] [address] [place] [address] Filemon Miller MD [address] [facility] [address] [facility] [place] [phone] Chronic systolic (congestive) heart failure (CMS/HCC) Social [...] (CMS/HCC) documented in this encounter Care Teams Resourcing Consultant Relationship Specialty Start Date End Date Roldan Khanna MD [address] [place] [address] PCP - General Family Medicine 01/26/23 documented as of this encounter
--- OUTSIDE RECORDS SUMMARY | 2025-02-01 09:50 | XMS_ITS | Encounter Summary ---
Author Organization [facility] Address [address] [place] [address] Care Team Providers Care Liquor Clerk Name Role Phone Roldan Khanna MD Primary Care Provider [phone] Reason for Visit * Reason Comments Med Refill Encounter Details Date Type Department Care Team ([facility] Contact Info) Description 07/23/2022 Refill [facility] Heart at [facility] [address] [place] [address] Filemon Miller MD [address] [facility] [address] [facility] [place] [address] Unspecified atrial fibrillation (CMS/HCC) Social History Tobacco Use Types Packs/Day Years Used Date Smoking Tobacco: Never Assessed Sex and Gender Information Value Date Recorded Sex Assigned at Not on file Legal Sex Male 12:31 AM EDT Gender Identity Not on file Sexual Orientation Not on file documented as of this encounter Miscellaneous Notes * Telephone Encounter - Janelle Minaya - 07/23/2022 10:23 AM EST Approving, but needs appt for additional refills. documented in this encounter Plan of Treatment Scheduled Procedures Name Priority Associated Diagnoses Date/Ti me BIVENTRICULAR ICD UPGRADE Cardiomyopathy, ischemic documented as of this encounter Visit Diagnoses Diagnosis Unspecified atrial fibrillation (CMS/HCC) documented in this encounter Care Teams Liquor Clerk Relationship Specialty Start Date End Date Roldan Khanna MD [address] [place] [id number] PCP - General Family Medicine 01/26/23 documented as of this encounter
--- OUTSIDE RECORDS SUMMARY | 2025-02-01 09:50 | XMS_ITS | Encounter Summary ---
Author Organization [facility] Address [address] [place] [address] Care Team Providers Care Travel Money Advisor Name Role Phone Roldan Khanna MD Primary Care Provider [phone] Reason for Visit * Reason Comments Med Refill Encounter Details Date Type Department Care Team ([facility] st Contact Info) Description 10/13/2022 Refill [facility] Heart at [facility] [address] [place] [address] Filemon Miller MD [address] [facility] [address] [facility] [place] [phone] Unspecified atrial fibrillation (CMS/HCC) Social History Tobacco [...] (CMS/HCC) documented in this encounter Care Teams Travel Money Advisor Relationship Specialty Start Date End Date Roldan Khanna MD [address] [place] [address] PCP - General Family Medicine 01/26/23 documented as of this encounter
--- OUTSIDE RECORDS SUMMARY | 2025-02-01 09:50 | XMS_ITS | Encounter Summary ---
Author Organization [facility] Address [address] [place] [address] Care Team Providers Care Certified Composites Technician Name Role Phone Roldan Khanna MD Primary Care Provider [phone] Encounter Details Date Type Department Care Team (Late st Contact Info) Description 01/31/2025 Orders Only [facility] Heart at [facility] [address] [place] [address] Lori Nelson MA Cardiomyopathy, ischemic (Primary Dx) Social History Tobacco Use Types Packs/Day Years Used Date Smoking Tobacco: Every Day Cigarettes Smokeless Tobacco: Current Comments:Vape 2 times Alcohol Use Standard Drinks/Week Comments Not Currently 0 (1 standard drink = 0.6 oz pur e alcohol) [facility] Utilities Answer Date Recorded In the past 12 months has [facility] [employer], gas, oil, or water [employer] threatened to shut off services in your [...] often do you attend chur ch or confucianist services? Never 11/24/2023 Do you belong to any clubs o r organizations such as nondenominational groups, unions, fraternal or athletic groups, or [...] and heating? Not hard at all 11/24/2023 [facility] [place] of Occupat ional Health - Occupational Stress [...] as of this encounter Visit Diagnoses Diagnosis Cardiomyopathy, ischemic- Primary Other specified forms of chronic ischemic heart disease documented in this encounter Care Teams Certified Composites Technician Relationship Specialty Start Date End Date Roldan Khanna MD [address] [place] [address] PCP - General Family Medicine 01/26/23 documented as of this encounter
--- OUTSIDE RECORDS SUMMARY | 2025-02-01 09:50 | XMS_ITS | Encounter Summary ---
Author Organization [facility] Address [address] [place] [address] Care Team Providers Care Annual Campaign Manager Name Role Phone Roldan Khanna MD Primary Care Provider [phone] Encounter Details Date Type Department Care Team (Late st Contact Info) Description 01/24/2025 Telephone [facility] Heart at [facility] [address] [place] [address] Lori Nelson MA Social History Tobacco Use Types Packs/Day Years Used Date Smoking Tobacco: Every Day Cigarettes Smokeless Tobacco: Current Comments:Vape 2 times Alcohol Use Standard Drinks/Week Comments Not Currently 0 (1 standard drink = 0.6 oz pur e alcohol) [facility] Utilities Answer Date Recorded In the [...] often do you attend chur ch or druze services? Never 11/24/2023 Do you belong to any clubs o r organizations such as hoahaoism groups, unions, fraternal or athletic groups, or [...] and heating? Not hard at all 11/24/2023 [facility] [place] of Occupat ional Health - Occupational Stress [...] on filedocumented in this encounter Care Teams Annual Campaign Manager Relationship Specialty Start Date End Date Roldan Khanna MD [address] [place] [address] PCP - General Family Medicine 01/26/23 documented as of this encounter
--- OUTSIDE RECORDS SUMMARY | 2025-02-01 09:50 | XMS_ITS | Clinical Summary ---
Author Organization [facility] Address [address] [place] [address] Care Team Providers Care Superintendent Greens Name Role Phone Unavailable Primary Care Provider Unavailabl e Social History Tobacco Use Types Packs/Day Years Used Date Smoking Tobacco: Never Assessed Sex and Gender Information Value Date Recorded Sex Assigned at Not on file Legal Sex Male 11:01 PM EST Gender Identity Not on file Sexual Orientation Not on file Plan of Treatment Not on file
--- OUTSIDE RECORDS SUMMARY | 2025-02-01 09:51 | XMS_ITS | Encounter Summary ---
Author Organization [facility] Address [address] [place] [address] Care Team Providers Care Associate Biological Sales Name Role Phone Roldan Khanna MD Primary Care Provider [phone] Reason for Referral * Genetic Testing (Routine) - Pending Review Specialty Diagnoses / Procedures Referred By Andreia hale Referred To Contact Lab Diagnoses senior living current use of amiodarone Procedures T4, free Jared Mcdanile MD [address] [place] [address] Phone: tel: fax: Referral ID Status Reason Start Date Expiration Date V isits Requested Visits Authorized [id number] Pending Review 01/15/2025 01/15/2026 1 1 Encounter Details Date Type Department Care Team (Late st Contact Info) Description 01/15/2025 Orders Only [facility] Heart at [facility] [address] [place] [address] Lori Nelson MA long term care phlebotomist current use of amiodarone (Primary Dx) Social History Tobacco Use Types Packs/Day Years Used Date Smoking Tobacco: Every Day Cigarettes Smokeless Tobacco: Current Comments:Vape 2 times Alcohol Use Standard Drinks/Week Comments Not Currently 0 (1 standard drink = 0.6 oz pur e alcohol) [facility] Utilities Answer Date Recorded In the past 12 months has th e electric, gas, oil, or water company [...] often do you attend chur ch or synagogue services? Never 11/24/2023 Do you belong to any clubs o r organizations such as episcopal groups, unions, fraternal or athletic groups, or [...] and heating? Not hard at all 11/24/2023 [facility] [place] of Occupat ional Health - Occupational Stress [...] of this encounter Plan of Treatment Scheduled Orders Name Type Priority Associated Diagnoses Orde r Schedule Pulmonary function testing Spirometry; Body Box (lung volumes, airway resistance, and SVC), DLCO PFT Routine long term care phlebotomist current use of amiodarone Expected: 01/15/2025 (Approximate), Expires: 01/15/2026 XR chest 2 views Imaging Routine senior living current use of amiodarone Expected: 01/15/2025, Expires: 01/15/2026 TSH Lab Routine long term care phlebotomist current use of amiodarone Expected: 01/15/2025 (Approximate), Expires: 01/15/2026 T4, free Lab Routine senior living current use of amiodarone Expected: 01/15/2025 (Approximate), Expires: 01/15/2026 Hepatic function panel Lab Routine long term care phlebotomist current use of amiodarone Expected: 01/15/2025 (Approximate), Expires: 01/15/2026 Scheduled Procedures Name Priority Associated Diagnoses Date/Ti me BIVENTRICULAR ICD UPGRADE Cardiomyopathy, ischemic documented as of this encounter Visit Diagnoses Diagnosis long term care phlebotomist current use of amiodarone- Primary documented in this encounter Care Teams Associate Biological Sales Relationship Specialty Start Date End Date Roldan Khanna MD [address] [place] [address] PCP - General Family Medicine 01/26/23 documented as of this encounter
--- OUTSIDE RECORDS SUMMARY | 2025-02-01 09:51 | XMS_ITS | Encounter Summary ---
Author Organization [facility] Address [address] [place] [address] Care Team Providers Care Pharmaceutical Specialty Representative Name Role Phone Roldan Khanna MD Primary Care Provider [phone] Encounter Details Date Type Department Care Team ([facility] Contact Info) Description 12/20/2024 Orders Only [facility] Cardiology [facility] [address] [place] [address] Jared Mcdaniel MD [address] [place] [address] Social History Tobacco Use Types Packs/Day Years Used Date Smoking Tobacco: Every Day Cigarettes Smokeless Tobacco: Never Alcohol Use Standard Drinks/Week Comments Not Currently 0 (1 standard drink = 0.6 oz pur e alcohol) [facility] Utilities Answer Date Recorded In the past 12 months has [facility] [employer], gas, oil, or water [employer] threatened to shut off services in your [...] often do you attend chur ch or mormonism services? Never 11/24/2023 Do you belong to any clubs o r organizations such as jew groups, unions, fraternal or athletic groups, or [...] and heating? Not hard at all 11/24/2023 [facility] of Occupat ional Health - Occupational Stress [...] - ICD Routine 12/20/2024 12:00 AM EDT documented in this encounter Results * Cardiac device check - Remote ICD (12/20/2024 12:00 AM EDT) Anatomical Region Laterality Modality Other 12/20/2024 Jared Mcdaniel MD CV IMPLANTABLE CARDIAC DEVICE IA OCEDURES Final Result documented in this encounter Visit Diagnoses Not on filedocumented in this encounter Care Teams Pharmaceutical Specialty Representative Relationship Specialty Start Date End Date Roldan Khanna MD [address] [place] [address] PCP - General Family Medicine 01/26/23 documented as of this encounter
--- OUTSIDE RECORDS SUMMARY | 2025-02-01 09:51 | XMS_ITS | Encounter Summary ---
Author Organization [facility] Address [address] [place] [address] Care Team Providers Care Repair Table Operator Name Role Phone Roldan Khanna MD Primary Care Provider [phone] Reason for Visit * Reason Comments Med Refill Encounter Details Date Type Department Care Team ([facility] Contact Info) Description 10/06/2023 Refill [facility] Heart at [facility] [address] [place] [address] Filemon Miller MD [address] [facility] [address] [facility] [place] [phone] Chronic systolic (congestive) heart failure (CMS/HCC) Social [...] (CMS/HCC) documented in this encounter Care Teams Repair Table Operator Relationship Specialty Start Date End Date Roldan Khanna MD [address] [place] [address] PCP - General Family Medicine 01/26/23 documented as of this encounter
--- OUTSIDE RECORDS SUMMARY | 2025-02-01 09:53 | XMS_ITS | CCD ---
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 [Mass/Vol] 9 mg/dL 9 [facility] WBC Auto (Bld) [#/Vol]Ordere d By: Elizabeth Ramey on 07-12-2022 WBC (Bld) [#/Vol] 6.3 10*3/uL 4.1-10.5 [facility] Creatinine [Mass/volume] in UrineOrdered By: Elizabeth Ramey on 07-11-2022 Creatinine (U) [Mass/Vol] 83.2 mg/dL [facility] Comment on above: No reference range e stablished Urine sodium measurement (mo les/volume)Ordered By: Elizabeth Ramey on 07-11-2022 Sodium (U) [Moles/Vol] 111 mmol/L [facility] Comment on above: No reference range e stablished Activated partial thrombopla stin time (aPTT) in platelet poor plasma by coagulation aOrdered By: Tomás Roche on 2022 aPTT Coag (PPP) [Time] 28.8 s 25.1-36.5 [facility] Amphetamine Screen Ql (U)Ord ered By: Tomás Roche on 2022 Amphetamines Ql (U) Negative Negative [facility] Barbiturates [Presence] in U rineOrdered By: Tomás Roche on 2022 Barbiturates Ql (U) Negative Negative [facility] Basophils Auto (Bld) [#/Vol] Ordered By: Tomás Roche on 2022 Basophils (Bld) [#/Vol] 0.0 10*3/uL 0.0-0.2 [facility] Basophils/100 WBC Auto (Bld) Ordered By: Tomás Roche on 2022 Basophils/100 WBC (Bld) 0.6 % . [facility] Benzodiazepines [Presence] i n UrineOrdered By: Tomás Roche on 2022 Benzodiazepines Ql (U) Negative Negative [facility] Body fluid albumin measureme nt (mass/volume)Ordered By: Tomás Roche on 2022 Albumin (Body fld) [Mass/Vol] 3.5 g/dL 3.2-5.5 [facility] COVID CepheidOrdered By: Joseline nazario Kaley on 2022 SARS-CoV-2 (COVID-19) Ab IA Ql Negative Negative [facility] Comment on above: This is a duplicate [employer] Xpert Xpress CoV-2/Flu/RSV Plus RNA by RT-PCR result to be used for statistical tracking purpose only. SARS-CoV-2 (COVID-19) RNA KERRIE+probe Ql (Unsp spec) [facility] Cannabinoids [Presence] in U rine by Screen methodOrdered By: Tomás Roche on 2022 Cannabinoids Screen Ql (U) Positive Negative [facility] Comment on above: These are unconfirme d results and should not be used for legal purposes. Drug Cut-Off Concentration: AMPH 1000 ng/mL NOE 200 ng/mL JACKI 200 ng/mL COCM 300 ng/mL OP 300 ng/mL PCP 25 ng/mL THC 20 ng/mL Creatine kinase [Enzymatic a ctivity/volume] in Serum or PlasmaOrdered By: Tomás Roche on 2022 CK [Catalytic activity/Vol] 96 U/L 22-269 [facility] Creatinine and Glomerular fi ltration rate.predicted panel (S/P/Bld)Ordered By: Tomás Roche on 2022 Creatinine [Mass/Vol] 2.28 mg/dL 0.64-1.27 [facility] Eosinophils Auto (Bld) [#/Vo l]Ordered By: Tomás Roche on 2022 Eosinophils (Bld) [#/Vol] 0.0 10*3/uL 0.0-0.45 [facility] Eosinophils/100 WBC Auto (Bl d)Ordered By: Tomás Roche on 2022 Eosinophils/100 WBC (Bld) 0.6 % . [facility] Erythrocyte distribution wid th Auto (RBC) [Ratio]Ordered By: Tomás Roche on 2022 Erythrocyte distribution width (RBC) [Ratio] 13.2 % 12.0-14.8 [facility] Estimated glomerular filtrat ion rate (GFR) non- AmericanOrdered By: Tomás Roche on 2022 GFR/1.73 sq M.predicted among non-blacks MDRD (S/P/Bld) [Vol rate/Area] 28 mL/Min [facility] Globulin Calc (S) [Mass/Vol] Ordered By: Tomás Roche on 2022 Globulin (S) [Mass/Vol] 2.9 g/dL [facility] Hematocrit Auto (Bld) [Volum e fraction]Ordered By: Tomás Roche on 2022 Hematocrit (Bld) [Volume fraction] 36.7 % 38.8-50.0 [facility] Hemoglobin [Mass/volume] in BloodOrdered By: Tomás Roche on 2022 Hemoglobin (Bld) [Mass/Vol] 12.2 g/dL 13.0-17.0 [facility] Laboratory - Chemistry and C hemistry - challengeOrdered By: Tomás Roche on 2022 Magnesium [Mass/Vol] 2.1 mg/dL 1.6-2.6 [facility] Natriuretic peptide B (Bld) [Mass/Vol] 221.0 pg/mL 5-100 [facility] Laboratory - CoagulationOrde red By: Tomás Roche on 2022 PT Coag (PPP) [Time] 11.9 s 9.0-12.9 [facility] Laboratory - Drug toxicology Ordered By: Tomás Roche on 2022 Opiates Ql (U) Negative Negative [facility] Leukocytes [#/volume] correc rosemary for nucleated erythrocytes in Blood by Automated counOrdered By: Tomás Roche on 2022 WBC corrected for nucl RBC Auto (Bld) [#/Vol] 6.8 10*3/uL 4.1-10.5 [facility] Lymphocytes Auto (Bld) [#/Vo l]Ordered By: Tomás Roche on 2022 Lymphocytes (Bld) [#/Vol] 1.4 10*3/uL 1.00-4.8 [facility] Lymphocytes/100 WBC Auto (Bl d)Ordered By: Tomás Roche on 2022 Lymphocytes/100 WBC (Bld) 20.4 % . [facility] MCH Auto (RBC) [Entitic mass ]Ordered By: Tomás Roche on 2022 MCH (RBC) [Entitic mass] 33.0 pg 27.5-35.2 [facility] MCHC Auto (RBC) [Mass/Vol]Or dered By: Tomás Roche on 2022 MCHC (RBC) [Mass/Vol] 33.3 g/dL 32.5-35.6 [facility] MCV Auto (RBC) [Entitic vol] Ordered By: Tomás Roche on 2022 MCV (RBC) [Entitic vol] 99.2 fL 83.5-101 [facility] Monocyte distribution width [Entitic volume] in Blood by AutomatedOrdered By: Tomás Roche on 2022 Monocyte distribution width Auto (Bld) [Entitic vol] 15.55 % 0.00-20.00 [facility] Monocytes Auto (Bld) [#/Vol] Ordered By: Tomás Roche on 2022 Monocytes (Bld) [#/Vol] 0.5 10*3/uL 0.0-0.8 [facility] Monocytes/100 WBC Auto (Bld) Ordered By: Tomás Roche on 2022 Monocytes/100 WBC (Bld) 6.9 % . [facility] Neutrophils Auto (Bld) [#/Vo l]Ordered By: Tomás Roche on 2022 Neutrophils (Bld) [#/Vol] 4.9 10*3/uL 1.8-7.7 [facility] Neutrophils/100 WBC Auto (Bl d)Ordered By: Tomás Roche on 2022 Neutrophils/100 WBC (Bld) 71.5 % . [facility] No Panel InformationOrdered By: Tomás Roche on 2022 Estimated GFR () 34 mL/Min [facility] Comment on above: GFR estimated refere nce range: According to KDOQI guidelines, <60 ml/min/1.73m2 is sufficient to diagnose a patient with chronic kidney disease. Pharmacy Creatinine Clearance (Chem 24.00 [facility] Nucleated erythrocytes [Pres ence] in Blood by Automated countOrdered By: Tomás Roche on 2022 Nucleated RBC Auto Ql (Bld) 0.1 /100{WBC} 0-0.5 [facility] Phencyclidine Screen Ql (U)O rdered By: Tomás Roche on 2022 Phencyclidine Ql (U) Negative Negative [facility] Platelet mean volume Auto (B ld) [Entitic vol]Ordered By: Tomás Rcohe on 2022 Platelet mean volume (Bld) [Entitic vol] 9.2 fL 6.6-10.1 [facility] Platelet poor plasma interna tional normalized ratio (INR) by coagulation assay (relatOrdered By: Tomás Roche on 2022 INR Coag (PPP) [Relative time] 1.1 {INR} [facility] Comment on above: INR Therapeutic Rang e [...] 2022 Platelets (Bld) [#/Vol] 136 10*3/uL 150-450 [facility] Protein [Mass/volume] in Ser um or PlasmaOrdered By: Tomás Roche on 2022 Protein [Mass/Vol] 6.4 g/dL 6.1-7.9 [facility] RBC Auto (Bld) [#/Vol]Ordere d By: Tomás Roche on 2022 RBC (Bld) [#/Vol] 3.70 10*6/uL 3.90-5.60 [facility] Serum or plasma alanine henry otransferase measurement without P-5'-P (enzymatic activiOrdered By: Tomás Roche on 2022 ALT No additional P-5'-P [Catalytic activity/Vol] 44 U/L 10-60 [facility] Serum or plasma albumin/glob ulin mass ratioOrdered By: Tomás Roche on 2022 Albumin/Globulin [Mass ratio] 1.2 {ratio} [facility] Serum or plasma alkaline everett sphatase measurement (enzymatic activity/volume)Ordered By: Tomás Roche on 2022 ALP [Catalytic activity/Vol] 55 U/L 32-92 [facility] Serum or plasma anion gap de terminationOrdered By: Tomás Roche on 2022 Anion gap [Moles/Vol] 15.3 mmol/L 6.0-15.0 [facility] Serum or plasma aspartate am inotransferase measurement (enzymatic activity/volume)Ordered By: Tomás Roche on 2022 AST [Catalytic activity/Vol] 37 U/L 10-42 [facility] Serum or plasma calcium delfino urement (mass/volume)Ordered By: Tomás Roche on 2022 Calcium [Mass/Vol] 8.4 mg/dL 8.2-10.2 [facility] Serum or plasma chloride syed surement (moles/volume)Ordered By: Tomás Roche on 2022 Chloride [Moles/Vol] 105 mmol/L 95-114 [facility] Serum or plasma creatine kin ase MB (CKMB)/total creatine kinase (CK) ratio by calculaOrdered By: Tomás Roche on 2022 CK.MB Calc [Catalytic fraction] 2.8 % 0.00-2.50 [facility] Serum or plasma creatine kin ase MB measurement (mass/volume)Ordered By: Tomás Roche on 2022 CK.MB [Mass/Vol] 2.7 ng/mL 0.6-6.3 [facility] Serum or plasma glucose delfino urement (mass/volume)Ordered By: Tomás Roche on 2022 Glucose [Mass/Vol] 115 mg/dL 70-100 [facility] Comment on above: ADA recommended refe rence rangeRandom Glucose Reference Range is dependent on time and content of last meal. Glucose of more than 200 mg/dL in a nonstressed, ambulatory subject supports the diagnosis of Diabetes Mellitus. Serum or plasma potassium me asurement (moles/volume)Ordered By: Tomás Roche on 2022 Potassium [Moles/Vol] 4.0 mmol/L 3.5-5.1 [facility] Serum or plasma sodium measu rement (moles/volume)Ordered By: Tomás Roche on 2022 Sodium [Moles/Vol] 135 mmol/L 136-146 [facility] Serum or plasma total biliru bin measurement (mass/volume)Ordered By: Tomás Roche on 2022 Bilirubin [Mass/Vol] 0.6 mg/dL 0.3-1.2 [facility] Serum or plasma total carbon dioxide measurement (moles/volume)Ordered By: Tomás Roche on 2022 CO2 [Moles/Vol] 18.7 mmol/L 22.0-30.0 [facility] Serum or plasma urea nitroge n measurement (mass/volume)Ordered By: Tomás Roche on 2022 Urea nitrogen [Mass/Vol] 20 mg/dL 9-23 [facility] TSH DL <= 0.005 mIU/L QnOrde red By: Tomás Roche on 2022 TSH Qn 0.96 m[IU]/L 0.45-5.33 [facility] Troponin I.cardiac [Mass/vol ume] in Serum or Plasma by High sensitivity methodOrdered By: Tomás Roche on 2022 Troponin I.cardiac High sensitivity method [Mass/Vol] 11 pg/mL 0-20 [facility] Urine cocaine detectionOrder ed By: Tomás Roche on 2022 Cocaine Ql (U) Negative Negative [facility] WBC Auto (Bld) [#/Vol]Ordere d By: Tomás Roche on 2022 WBC (Bld) [#/Vol] 6.8 10*3/uL 4.1-10.5 [facility] PROF CHEM 8 (BAS METB)on Anion gap [Moles/Vol] 9.2 mmol/L Normal [facility] Comment on above: Performed By: #### B MP #### [facility] [address] [address] [address] Toshia Jiang Calcium [Mass/Vol] 8.5 mg/dL Normal 8.5-10.1 [facility] Comment on above: Performed By: #### B MP #### [facility] [address] [address] [address] Toshia Jiang Chloride [Moles/Vol] 103 mmol/L Normal 98-107 [facility] Comment on above: Performed By: #### B MP #### [facility] [address] [address] [address] Toshia Jiang CO2 [Moles/Vol] 29.3 mmol/L Normal 21.0-32.0 [facility] Comment on above: Performed By: #### B MP #### [facility] [address] [address] [address] Toshia Jiang Creatinine [Mass/Vol] 1.12 mg/dL Normal 0.70-1.30 [facility] Comment on above: Performed By: #### B MP #### [facility] [address] [address] [address] Toshia Jiang EGFR-AF CAMBODIAN >60 Normal >=60 [facility] Comment on above: Performed By: #### B MP #### [facility] [address] [address] [address] Toshia Jiang EGFR-NON AF CAMBODIAN >60 Normal >=60 [facility] Comment on above: Performed By: #### B MP #### [facility] [address] [address] [address] Toshia Jiang Glucose [Mass/Vol] 109 mg/dL Critically high 74-106 [facility] Comment on above: Performed By: #### B MP #### [facility] [address] [address] [address] Toshia Jiang Potassium [Moles/Vol] 3.5 mmol/L Normal 3.5-5.1 [facility] Comment on above: Performed By: #### B MP #### [facility] [address] [address] [address] Toshia Jiang Sodium [Moles/Vol] 138 mmol/L Normal 136-145 [facility] Comment on above: Performed By: #### B MP #### [facility] [address] [address] [address] Toshia Jiang Urea nitrogen [Mass/Vol] 12.0 mg/dL Normal 7.0-18.0 [facility] Comment on above: Performed By: #### B MP #### [facility] [address] [place] [address] Dr. Toshia Jiang Urea nitrogen/Creatinine [Mass ratio] 10.7 mg/mg Normal [facility] Comment on above: Performed By: #### B MP #### [facility] [address] [address] [address] Toshia Jiang PROF CHEM 8 (BAS METB)on Anion gap [Moles/Vol] 9.0 mmol/L Normal [facility] Comment on above: Performed By: #### B MP #### [facility] [address] [place] [address] Dr. Toshia Jiang Calcium [Mass/Vol] 8.4 mg/dL Critically low 8.5-10.1 [facility] Comment on above: Performed By: #### B MP #### [facility] [address] [place] [address] Dr. Toshia Jiang Chloride [Moles/Vol] 103 mmol/L Normal 98-107 [facility] Comment on above: Performed By: #### B MP #### [facility] [address] [place] [address] Dr. Toshia Jiang CO2 [Moles/Vol] 32.1 mmol/L Critically high 21.0-32.0 [facility] Comment on above: Performed By: #### B MP #### [facility] [address] [place] [address] Dr. Toshia Jiang Creatinine [Mass/Vol] 1.03 mg/dL Normal 0.70-1.30 [facility] Comment on above: Performed By: #### B MP #### [facility] [address] [place] [address] Dr. Toshia Jiang EGFR-AF CAMBODIAN >60 Normal >=60 [facility] Comment on above: Performed By: #### B MP #### [facility] [address] [place] [address] Dr. Toshia Jiang EGFR-NON AF CAMBODIAN >60 Normal >=60 [facility] Comment on above: Performed By: #### B MP #### [facility] [address] [address] [address] Toshia Jiang Glucose [Mass/Vol] 103 mg/dL Normal 74-106 [facility] Comment on above: Performed By: #### B MP #### [facility] [address] [address] [address] Toshia Jiang Potassium [Moles/Vol] 3.1 mmol/L Critically low 3.5-5.1 [facility] Comment on above: Performed By: #### B MP #### [facility] [address] [address] [address] Toshia Jiang Sodium [Moles/Vol] 141 mmol/L Normal 136-145 [facility] Comment on above: Performed By: #### B MP #### [facility] [address] [address] [address] Toshia Jiang Urea nitrogen [Mass/Vol] 11.0 mg/dL Normal 7.0-18.0 [facility] Comment on above: Performed By: #### B MP #### [facility] [address] [address] [address] Toshia Jiang Urea nitrogen/Creatinine [Mass ratio] 10.7 mg/mg Normal [facility] Comment on above: Performed By: #### B MP #### [facility] [address] [place] [address] Dr. Toshia Jiang ECHOCARDIO M/2D COMPLETEon 0 03-03-2022 ECHOCARDIO M/2D COMPLETE Patient: DUNG COFFMAN Exam Date: 03/03/2022 : 1950 Gender:M Ordering : [facility] Admission #: [id number] Family : DR EVARISTO TAVARES . Order #: [id number] CLICK HERE TO VIEW EXAM ECHOCARDIOGRAM REPORT [...] 4.34 mm[Hg] Right Atrium Dictated by: Marshal Manrique M.D. on 03/03/2022 at 20:01 Approved by: Marshal Manrique M.D. on 03/03/2022 at 20:08 Normal [facility] BNPon 12-31-2021 Natriuretic peptide B (Bld) [Mass/Vol] 3595.0 pg/mL Critically high <=900.0 [facility] Comment on above: Performed By: #### B BACTERIOLOGIST INDUSTRIAL, CMP #### [facility] [address] [place] [address] Dr. Toshia Jiang PROF 14(COMP METB)on 022 Albumin [Mass/Vol] 3.0 g/dL Critically low 3.4-5.0 [facility] Comment on above: Performed By: #### B BACTERIOLOGIST INDUSTRIAL, CMP #### [facility] [address] [place] [address] Dr. Toshia Jiang Albumin/Globulin [Mass ratio] 0.8 {ratio} Normal [facility] Comment on above: Performed By: #### B BACTERIOLOGIST INDUSTRIAL, CMP #### [facility] [address] [place] [address] Dr. Toshia Jiang ALP [Catalytic activity/Vol] 53 U/L Normal 46-116 [facility] Comment on above: Performed By: #### B BACTERIOLOGIST INDUSTRIAL, CMP #### [facility] [address] [place] [address] Dr. Toshia Jiang ALT [Catalytic activity/Vol] 28 U/L Normal 16-63 [facility] Comment on above: Performed By: #### B BACTERIOLOGIST INDUSTRIAL, CMP #### [facility] [address] [place] [address] Dr. Toshia Jiang Anion gap [Moles/Vol] 9.8 mmol/L Normal [facility] Comment on above: Performed By: #### B BACTERIOLOGIST INDUSTRIAL, CMP #### [facility] [address] [place] [address] Dr. Toshia Jiang AST [Catalytic activity/Vol] 23 U/L Normal 15-37 [facility] Comment on above: Performed By: #### B BACTERIOLOGIST INDUSTRIAL, CMP #### [facility] [facility] [address] [place] [address] Dr. Toshia Jiang Bilirubin [Mass/Vol] 0.3 mg/dL Normal 0.2-1.0 [facility] Comment on above: Performed By: #### B BACTERIOLOGIST INDUSTRIAL, CMP #### [facility] [address] [place] [address] Dr. Toshia Jiang Calcium [Mass/Vol] 8.5 mg/dL Normal 8.5-10.1 [facility] Comment on above: Performed By: #### B BACTERIOLOGIST INDUSTRIAL, CMP #### [facility] [address] [place] [address] Dr. Toshia Jiang Chloride [Moles/Vol] 104 mmol/L Normal 98-107 [facility] Comment on above: Performed By: #### B BACTERIOLOGIST INDUSTRIAL, CMP #### [facility] [address] [place] [address] Dr. Toshia Jiang CO2 [Moles/Vol] 30.0 mmol/L Normal 21.0-32.0 [facility] Comment on above: Performed By: #### B BACTERIOLOGIST INDUSTRIAL, CMP #### [facility] [address] [place] [address] Dr. Toshia Jiang Creatinine [Mass/Vol] 0.89 mg/dL Normal 0.70-1.30 [facility] Comment on above: Performed By: #### B BACTERIOLOGIST INDUSTRIAL, CMP #### [facility] [address] [place] [address] Dr. Toshia Jiang EGFR-AF CAMBODIAN >60 Normal >=60 [facility] Comment on above: Performed By: #### B BACTERIOLOGIST INDUSTRIAL, CMP #### [facility] [address] [place] [address] Dr. Toshia Jiang EGFR-NON AF CAMBODIAN >60 Normal >=60 [facility] Comment on above: Performed By: #### B BACTERIOLOGIST INDUSTRIAL, CMP #### [facility] [address] [place] [address] Dr. Toshia Jiang Globulin (S) [Mass/Vol] 3.7 g/dL Normal [facility] Comment on above: Performed By: #### B BACTERIOLOGIST INDUSTRIAL, CMP #### [facility] [address] [place] [address] Dr. Toshia Jiang Glucose [Mass/Vol] 101 mg/dL Normal 74-106 [facility] Comment on above: Performed By: #### B BACTERIOLOGIST INDUSTRIAL, CMP #### [facility] [address] [address] [address] Toshia Jiang Potassium [Moles/Vol] 3.8 mmol/L Normal 3.5-5.1 [facility] Comment on above: Performed By: #### B BACTERIOLOGIST INDUSTRIAL, CMP #### [facility] [address] [address] [address] Toshia Jiang Protein [Mass/Vol] 6.7 g/dL Normal 6.4-8.2 [facility] Comment on above: Performed By: #### B BACTERIOLOGIST INDUSTRIAL, CMP #### [facility] [address] [address] [address] Toshia Jiang Sodium [Moles/Vol] 140 mmol/L Normal 136-145 [facility] Comment on above: Performed By: #### B BACTERIOLOGIST INDUSTRIAL, CMP #### [facility] [address] [address] [address] Toshia Jiang Urea nitrogen [Mass/Vol] 10.0 mg/dL Normal 7.0-18.0 [facility] Comment on above: Performed By: #### B BACTERIOLOGIST INDUSTRIAL, CMP #### [facility] [address] [address] [address] Toshia Jiang Urea nitrogen/Creatinine [Mass ratio] 11.2 mg/mg Normal [facility] Comment on above: Performed By: #### B BACTERIOLOGIST INDUSTRIAL, CMP #### [facility] [address] [address] [address] Toshia Jiang Vital Signs Date Time Vital Sign Value Performing Clinician Maximoi patricey 05-15-2024 15:14-0400 Body height 162.56 cm MD Evaristo Tavares Work Phone: [facility] 05-15-2024 15:14-0400 Body mass index (BMI) [Ratio] 19.7 kg/m2 MD Evaristo Tavares Work Phone: [facility] 05-15-2024 15:14-0400 Body weight 52.16 kg MD Evaristo Tavares Work Phone: [facility] 07-12-2022 16:00-0500 Body temperature 98 [degF] DO Tomás Keister Work Phone: [facility] 07-12-2022 16:00-0500 Diastolic blood pressure 62 mm[Hg] DO Tomás Keister Work Phone: [facility] 07-12-2022 16:00-0500 Heart rate 58 /min DO Tomás Keister Work Phone: [facility] 07-12-2022 16:00-0500 Respiratory rate 16 /min DO Tomás Keister Work Phone: [facility] 07-12-2022 16:00-0500 SaO2% (BldA) [Mass fraction] 95 % DO Tomás Keister Work Phone: [facility] 07-12-2022 16:00-0500 Systolic blood pressure 101 mm[Hg] DO Tomás Keister Work Phone: [facility] 07-12-2022 05:34-0500 Body weight 57.3 kg DO Tomás Keister Work Phone: [facility] 2022 20:37-0500 Diastolic blood pressure 58 mm[Hg] DO Tomás Keister Work Phone: [facility] 2022 20:37-0500 Heart rate 50 /min DO Tomás Keister Work Phone: [facility] 2022 20:37-0500 Respiratory rate 18 /min DO Tomás Keister Work Phone: [facility] 2022 20:37-0500 SaO2% (BldA) [Mass fraction] 95 % DO Tomás Keister Work Phone: [facility] 2022 20:37-0500 Systolic blood pressure 99 mm[Hg] DO Tomás Keister Work Phone: [facility] 2022 14:40-0500 Body height 165.1 cm DO Tomás Keister Work Phone: [facility] 2022 14:40-0500 Body weight 57.1 kg DO Tomás Roche Work Phone: [facility] 2022 14:36-0500 Body temperature 97 [degF] DO Tomás Roche Work Phone: [facility] Encounters Encounter Date Encounter Type Care Provider Facility Start: 10-01-2025 ambulatory Roldan Khanna Facility :[facility] Start: 04-04-2025 ambulatory Roldan Khanna Facility : [facility] Start: 12-28-2024 ambulatory [facility] Start: 12-25-2024 End: 12-26-2024 ambulatory [facility] Start: 12-05-2024 ambulatory [facility] Start: 10-25-2024 ambulatory [facility] Start: 10-25-2024 Encounter for preprocedural cardiovascular examination [facility] Start: 10-03-2024 End: 10-03-2024 ambulatory [facility] Start: 10-01-2024 End: 10-01-2024 ambulatory Roldan Khanna Facility:[facility] [place] Start: 09-28-2024 End: 09-28-2024 ambulatory [facility] Start: 09-20-2024 ambulatory [facility] Start: 09-06-2024 End: 09-06-2024 ambulatory Roldan Khanna Facility:[facility] Start: 08-02-2024 ambulatory [facility] Start: 07-31-2024 ambulatory [facility] Start: 07-26-2024 ambulatory [facility] Start: 07-03-2024 ambulatory [facility] Start: 06-20-2024 ambulatory [facility] Start: 06-07-2024 ambulatory [facility] Start: 05-29-2024 End: 05-29-2024 ambulatory [facility] Start: 05-28-2024 ambulatory [facility] Start: 05-15-2024 End: 05-15-2024 ambulatory MD Evaristo Tavares Work Phone: [facility] Work Phone: Start: 05-15-2024 End: 05-15-2024 Patient encounter procedure MD Evaristo Tavares Work Phone: [facility] Work Phone: Start: 04-17-2024 End: 04-17-2024 ambulatory Roldan Nitish Jey Facility:[facility] Start: 03-20-2024 End: 03-20-2024 ambulatory [facility] Start: 03-07-2024 End: 03-07-2024 ambulatory [facility] Start: 03-06-2024 End: 03-06-2024 ambulatory MD Evaristo Tavares Work Phone: [facility] Work Phone: Start: 03-06-2024 End: 03-06-2024 Patient encounter procedure MD Evaristo Tavares Work Phone: [facility] Work Phone: Start: 03-06-2024 End: 03-06-2024 Patient encounter procedure MD Evaristo Tavares Work Phone: [facility] Start: 03-06-2024 End: 03-06-2024 ambulatory MD Evaristo Tavares Work Phone: [facility] Work Phone: Start: 02-06-2024 End: 02-06-2024 Patient encounter procedure MD Evaristo Tavares Work Phone: [facility] Work Phone: Start: 02-06-2024 End: 02-06-2024 ambulatory MD Evaristo Tavares Work Phone: [facility] Work Phone: Start: 01-24-2024 End: 01-24-2024 ambulatory Roldan Khanna Facility:[facility] Start: 01-19-2024 End: 01-19-2024 ambulatory Roldan Khanna Facility:[facility] Start: 01-16-2024 End: 01-16-2024 ambulatory MD Evaristo Tavares Work Phone: [facility] Work Phone: Start: 01-16-2024 End: 01-16-2024 Patient encounter procedure MD Evaristo Tavares Work Phone: [facility] Work Phone: Start: 12-27-2023 End: 12-27-2023 ambulatory Roldan Khanna Facility:[facility] Start: 12-27-2023 End: 01-27-2024 ambulatory Roldan Khanna Facility:[id number] Start: 11-08-2023 ambulatory Roldan Khanna Facility :[facility] Start: 09-07-2023 End: 09-07-2023 Lab Drop off [facility] Start: 11-12-2022 End: 11-12-[address] EVARISTO TAVARES . Facility:[facility] Start: 07-12-2022 ambulatory Dung Ruiz II Facility:[id number] Start: 07-11-2022 ambulatory Dung Ruiz II Facility:[id number] Start: 2022 End: 07-12-2022 Evaluation and management of inpatient DO Tomás Hoganrojelio Work Phone: [facility] [place] [facility] Start: 04-27-2022 End: 04-28-[address] MARSHAL MANRIQUE Facility:[facility] Start: 03-26-[address] MARSHAL MANRIQUE Fac ility:[facility] Start: 03-23-2022 End: 03-24-2022 ambulatory [facility] Facility:[facility] Start: 03-03-2022 End: 03-04-2022 ambulatory [facility] Facility:[facility] Start: 01-11-2022 ambulatory [facility] Facility :[facility]1 Start: 12-31-2021 End: 01-01-[address] EVARISTO TAVARES . Facility:[facility] Start: 12-29-2021 End: 12-30-2021 ambulatory [facility] Facility: Procedures Date Procedure Procedure Detail Performing Clinician Start: 03-06-2024 Plain X-ray of left shoulder MD Evaristo Tavares Work Phone: Start: 02-06-2024 Plain X-ray of left elbow MD Evaristo Tavares Work Phone: Start: 02-06-2024 Plain X-ray of left shoulder MD Evaristo Tavares Work Phone: Start: 01-16-2024 Plain X-ray of left shoulder MD Evaristo Tavares Work Phone: Start: 07-12-2022 Doppler ultrasonogra phy of bilateral carotid arteries DO Tomás [employer] Work Phone: Start: 2022 Plain chest X-ray DO Lan ricocesilia Roche Work Phone: Ankle region structu re (body structure) [email or web address] Comment on above: screw in right ankle Cardiac catheterization [email or web address] Cardiac pacemaker, d evice (physical object) [email or web address] Comment on above: 2019 H/O: vasectomy [employer]i [employer] SARS-CoV-2, Influenz a & RSV (PCR) DO Tomás [employer] Work Phone: Tonsil and adenoid s tructure (body structure) [email or web address] Plan of Treatment Date Care Activity Detail Author Start: 05-15-2024 X-ray of cervical spine XR cer v spine AP/LAT/FLX/EXT [facility] Start: 05-15-2024 X-ray of lumbar spin e, six views including bending views XR lumbar spine 6V w bending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
[2025-02-01 11:34] LABS: Alanine Aminotransferase 17 U/L (16-63); Albumin Globulin Ratio 1.1; Albumin Level 3.5 g/dL (3.4-5.0); Alkaline Phosphatase 61 U/L (46-116); Aspartate Amino Transferase 17 U/L (15-37); Globulin 3.1 g/dL; Thyroid Stimulating Hormone 0.475 uIU/mL (0.358-3.740); Total Protein 6.6 g/dL (6.4-8.2)
== END 2025-02-01 09:46 | disposition home or self-care (01) ==
LOC: LAB 09:48
PROVIDERS: Visit Provider Internal Medicine Cardiovascular Disease
DX: Z79.899 Other long term (current) drug therapy (principal)
CPT/HCPCS: 36415; 80076; 84439; 84443

== ENCOUNTER 2025-02-27 12:45 | Outpatient (OUT) | payer OTHER, SELFPAY ==
[2025-02-27 13:08] LABS: Hemoglobin 11.4 g/dL (14.0-18.0)
--- NOTE | 2025-02-27 13:47 | XR_ITS ---
[address] [address] Patient Name: ANTONIO COFFMAN MRN: [id number] date: 1950 Sex: M Assigned Patient Location: CARD Current Patient Location: CARD Accession/Order Number: [id number] Exam Date: 02/27/2025 14:13 Report Date: 02/27/2025 14:13 At the request of: KIMBERLY TAPIA MD Procedure: XR chest 2V Chest 2 views CLINICAL HISTORY: Medical Administrative Assistant Use Amiodarone COMPARISON: Chest 10/03/2024 FINDINGS: Defibrillator device is in place. Heart is normal in size. Lungs are hyperinflated. No consolidation pneumothorax pleural effusion or free air. XR/XR chest 2V IMPRESSION: NO ACUTE CARDIOPULMONARY ABNORMALITY. Impression dictated by: Vipul Hartman Jr.OMargarito 02/27/2025 2:13 PM Dictation Location: [place] [address] Electronically authenticated by: [id number] Y Date: 02/27/2025 14:13
[2025-02-27] MEDS: ALBUTEROL SULFATE 2.5 MG/3 ML VIAL NEB IH (13:48)
[2025-02-27 14:17] LABS: Alanine Aminotransferase 21 U/L (16-63); Albumin Globulin Ratio 1.0; Albumin Level 3.3 g/dL (3.4-5.0); Alkaline Phosphatase 69 U/L (46-116); Aspartate Amino Transferase 19 U/L (15-37); Globulin 3.4 g/dL; Thyroid Stimulating Hormone 0.442 uIU/mL (0.358-3.740); Total Protein 6.7 g/dL (6.4-8.2)
== END 2025-02-27 12:46 | disposition home or self-care (01) ==
LOC: CARD 12:46
PROVIDERS: Visit Provider Internal Medicine Cardiovascular Disease
DX: Z79.899 Other long term (current) drug therapy (principal)
CPT/HCPCS: 36415; 71046; 80076; 84439; 84443; 85018; 94060; 94726; 94729

== ENCOUNTER 2025-05-18 09:35 | Outpatient (OUT) | payer OTHER, SELFPAY ==
--- OUTSIDE RECORDS SUMMARY | 2024-03-13 10:00 | XMS_ITS ---
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 * Medical History: Objective: * Vitals: Assessment: Plan: * Treatment: * * Electronic signature of Joel Galdamez DO on 05/17/2025 at 12:25 PM EDTSign off status: PendingVisit Status:?CANC (Cancelled) * Provider: Dez Galdamez DO Date: 0 03/13/2024 Generated for Printing/Faxing/eTransmitting on:?05/17/2025 12:25 PM EDT
--- OUTSIDE RECORDS SUMMARY | 2024-03-13 10:00 | XMS_ITS ---
Author Organization The 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 * Medical History: Objective: * Vitals: Assessment: Plan: * Treatment: * * Electronic signature of Joel Galdamez DO on 05/18/2025 at 09:40 AM EDTSign off status: PendingVisit Status:?CANC (Cancelled) * Provider: Dez Galdamez DO Date: 0 03/13/2024 Generated for Printing/Faxing/eTransmitting on:?05/18/2025 09:40 AM EDT
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
--- OUTSIDE RECORDS SUMMARY | 2025-05-17 12:25 | XMS_ITS | Clinical Summary ---
Author Organization [facility] Address [address] [place] [address] Phone Care Team Providers Care Parcel Post Delivery Name Role Phone Unavailable Primary Care Provider Unavailabl e Social History Tobacco UseTypesPacks/DayYears UsedDateSmoking Tobacco: Never AssessedSex and Gender InformationValueDate RecordedSex Assigned at BirthNot on fileLegal Sex Male06/19/2022 2:53 PM ESTGender IdentityNot on fileSexual OrientationNot on file Plan of Treatment Health MaintenanceDue DateLast DoneCommentsCT Llugfcgijkwz1951olonoscopy 1951olorectal Cancer Zjfgyqjac1951FIT-DNA (Cologuard)1950FIT 1Lipid Panel1950 5132Jeskuqboqdvdr1951Yearly Adult Physical 1950MMR Vaccines (1 of 1 - Standard series)1952Hepatitis C Screening 1969DTaP/Tdap/Td Vaccines (1 - Tdap)1973Pneumococcal Vaccine (1 of 1 - PCV)2001Zoster Vaccines (1 of 2)2001Influenza Vaccine (#1) 5COVID-19 Vaccine (1 - season)2025RSV High Risk: (Elderly (60+) or Population) (1 - 1-dose 75+ series)2026HIB VaccinesAged OutNo longer eligible based on patient's age to complete this topicHPV Vaccines Aged OutNo longer eligible based on patient's age to complete this topic Hepatitis A VaccinesAged OutNo longer eligible based on patient's age to complete this topicHepatitis B VaccinesAged OutNo longer eligible based on patient's age to complete this topicIPV VaccinesAged OutNo longer eligible based on patient's age to complete this topicMeningococcal VaccineAged OutNo longer eligible based on patient's age to complete this topicRotavirus VaccinesAged Out No longer eligible based on patient's age to complete this topic
--- OUTSIDE RECORDS SUMMARY | 2025-05-17 12:25 | XMS_ITS | Clinical Summary ---
Author Organization [facility] Address [address] [place] [address] Care Team Providers Care Household Appliances Salesperson Name Role Phone Unavailable Primary Care Provider Unavailabl e Social History Tobacco UseTypesPacks/DayYears UsedDateSmoking Tobacco: Never AssessedSex and Gender InformationValueDate RecordedSex Assigned at BirthNot on fileLegal Sex Male12/15/2023 9:41 AM EDTGender IdentityNot on fileSexual OrientationNot on file Plan of Treatment Not on file Insurance * Guarantor: Dung LunaAccount TypeRelation to PatientDate of BirthPhone Billing AddressPersonal/XhydurNvsg1950 [address] [address]
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
--- OUTSIDE RECORDS SUMMARY | 2025-05-17 12:25 | XMS_ITS | Encounter Summary ---
Author Organization [facility] Address [address] [place] [address] Care Team Providers Care Supervisor Carding Name Role Phone Roldan Khanna MD Primary Care Provider [phone] Trupti Weaver Primary Care Provider Reason for Visit * ReasonOnset DateCommentsPatient Assistance Naptuvp9604/22/2025 Encounter Details DateTypeDepartmentCare Team (Latest Contact Info)Mhjqaxsrjov81/29/2025Telephone [facility] [address] [place] [phone] Nika Lomas Patient Assistance Program Social History Tobacco UseTypesPacks/DayYears UsedDateSmoking Tobacco: Every DayCigarettes Smokeless Tobacco: Current Comments:Vape 2 times Alcohol UseStandard Drinks/WeekCommentsNot Currently0 (1 standard drink = 0.6 oz pure alcohol)[facility] UtilitiesAnswerDate RecordedIn the past 12 months has the [employer], gas, oil, or water [employer] threatened to shut off services in your home?11/24/2023Humiliation, Afraid, Rape, and Kick questionnaireAnswerDate RecordedWithin the last year, have you been afraid of your partner or ex-partner?No11/24/2023Within the last year, have you been humiliated [...] a week 11/24/2023How often do you attend hindu or temple services?Never11/24/2023o you belong to any clubs or organizations such as hindu groups, unions, fraInvenQuery or athletic groups, or school groups?No11/24/2023How often do you attend meetings of the clubs or organizations you belong to?Never11/24/2023re you , , , , never , or living with a partner?Hxpaepkc83/02/2024UDIT-CAnswerDate RecordedQ1: How often do you have a [...] housing, medical care, and heating?Not hard at all11/24/2023[facility] [place] of Occupational Health - Occupational Stress QuestionnaireAnswerDate RecordedDo you feel stress - tense, restless, nervous, or anxious, or unable to sleep at night because yourmind is troubled all the time - these days?Only a hqbpdc4411/24/2023TransportationAnswer Date RecordedIn the past 12 months, has [...] not to disclose 02/28/2025 9:12 PM EDTLegal VklCokb1001/21/2022 12:31 AM EDTGender IdentityChoose not to /07/2025 9:12 PM EDTSexual OrientationChoose not to disclose 02/28/2025 9:12 PM EDTdocumented as of this encounter Miscellaneous Notes * Telephone Encounter - Nika Lomas - 05/15/2025 11:41 AM EDT Tried calling patient and daughter and both phone numbers are not operating. Called [place] to see if patient stopped by to sign the PAP and he has not. Will make one last attempt this Tuesday. * Telephone Encounter - Nika Lomas - 04/25/2025 11:45 AM EDT Sent applications via mail due to not getting through the phone. * Telephone Encounter - Nika Lomas - 04/22/2025 9:30 AM EDT Enrollment paperwork for Paulo Nolasco, & Angelique are ready for patient to sign at [facility]. Madyson is aware that a message was left Tuesday afternoon to inform patient. Attempted to call patient with no success this morning and has a full voicemail. Patient's alternate contact's phone number is no longer in service. has completed his paperwork as well & is ready to fax. documented in this encounter Plan of Treatment DateTypeDepartmentCare Team (Latest Contact Info)Ujkhypnijcp62/12/2025 2:00 PM ESTOffice Visit [facility] [address] [place] [address] Filemon Miller MD [address] [facility] [place] [phone] documented as of this encounter Visit Diagnoses Not on filedocumented in this encounter Care Teams Team MemberRelationshipSpecialtyStart DateEnd Date Roldan Khanna MD [address] [place] [address] PCP - GeneralFamily Medicine01/26/2310 Trupti Weaver FNP-C [address] [place] [address] PCP - GeneralNurse Varwabtsdrwv51/21/25documented as of this encounter
--- OUTSIDE RECORDS SUMMARY | 2025-05-17 12:25 | XMS_ITS | Encounter Summary ---
Author Organization [facility] Address [address] [place] [address] Care Team Providers Care Cut Pressman Name Role Phone Trupti Weaver BRUSHER WARP-C Primary Care Provider [phone] Reason for Referral * Imaging (Routine) - Pending ReviewSpecialtyDiagnoses / ProceduresReferred By ContactReferred To ContactCardiology Diagnoses Cardiomyopathy, ischemic Procedures Transthoracic echo (TTE) complete Jared Mcdaniel MD [address] [place] [address] Phone: tel: fax: Referral IDStatusReasonStart DateExpiration DateVisits RequestedVisits [id number] Review Perform Procedure Encounter Details DateTypeDepartmentCare Team (Latest Contact Info)Ftjswudykxz90/21/2025Orders Only [facility] [address] [place] [address] Madyson Moscoso MA Cardiomyopathy, ischemic (Primary Dx) Social History Tobacco UseTypesPacks/DayYears UsedDateSmoking Tobacco: Every DayCigarettes Smokeless Tobacco: Current Comments:Vape 2 times Alcohol UseStandard Drinks/WeekCommentsNot Currently0 (1 standard drink = 0.6 oz pure alcohol)[facility] UtilitiesAnswerDate RecordedIn the past 12 months has the electric, gas, oil, or water company threatened [...] a week 11/24/2023How often do you attend protestant or judaism services?Never11/24/2023o you belong to any clubs or organizations such as protestant groups, unions, fraternal or athletic groups, or school groups?No11/24/2023How often do you attend meetings of the clubs or organizations you belong to?Never11/24/2023re you , , , , never , or living with a partner?Zjrsfqcp16/02/2024UDIT-CAnswerDate RecordedQ1: How often do you have a [...] housing, medical care, and heating?Not hard at all11/24/2023[facility] [place] of Occupational Health - Occupational Stress QuestionnaireAnswerDate RecordedDo you feel stress - tense, restless, nervous, or anxious, or unable to sleep at night because yourmind is troubled all the time - these days?Only a wqbtyo0211/24/2023TransportationAnswer Date RecordedIn the past 12 months, has [...] not to disclose 02/28/2025 9:12 PM EDTLegal FquDodm3401/21/2022 12:31 AM EDTGender IdentityChoose not to yluatgje25/07/2025 9:12 PM EDTSexual OrientationChoose not to disclose 02/28/2025 9:12 PM EDTdocumented as of this encounter Plan of Treatment DateTypeDepartmentCare Team (Latest Contact Info)Pfodxynixfn33/12/2025 2:00 PM ESTOffice Visit [facility] [address] [place] [address] Filemon Miller MD [address] [facility] [address] [facility] [place] [address] NameTypePriorityAssociated DiagnosesOrder ScheduleTransthoracic echo (TTE) completeEchocardiographyRoutine Cardiomyopathy, ischemic Expected: 05/14/2025 (Approximate), Expires: 05/14/2027documented as of this encounter Visit Diagnoses Diagnosis Cardiomyopathy, ischemic- Primary Other specified forms of chronic ischemic heart disease documented in this encounter Care Teams Team MemberRelationshipSpecialtyStart DateEnd Date Trupti Weaver FNP-C [address] [place] [address] PCP - GeneralNurse Bdzsfgbbxiio55/21/25documented as of this encounter
--- OUTSIDE RECORDS SUMMARY | 2025-05-17 12:26 | XMS_ITS | Patient Health Record ---
Author Organization [facility] [place] Address [address] [place] [address] Care Team Providers Care Geothermal Operating Engineer Name Role Phone Roldan Khanna MD Primary Care Provider Unavailabl e Reason For Referral No Information Plan Of Treatment No Information Insurance Providers Payer Name Payer Address Payer Phone Subscriber Number Group Number Insured Name Patient Relationship to Insured Coverage Start Date Coverage End Date [employer] [address] [place] [id number] Nhi Estradaelf - patient is the insured
--- OUTSIDE RECORDS SUMMARY | 2025-05-17 12:26 | XMS_ITS | Patient Health Record ---
Author Organization [facility] es Address [address] [place] [address] Care Team Providers Care Frame Trimmer Name Role Phone XXPauline Lassiter Primary Care Provider Reason For Referral No Information Medications Medication SIG (Take, Route, Frequency, Duration) Notes Start Date End Date Status Lisinopril 2.5 MG Tablet 1 tablet Orally Once a day; Duration: 90 days ActivePlavix 75 MG Tablet1 tablet Orally Once a day; Duration: 90 daysstart after efficentActiveOmeprazole 20 MG Capsule Delayed ReleaseOrally twice a day ActiveChantix Starting Month Roland 0.5 MG X 11 & 1 MG X 42 Tabletas directed Ihzedc7112/19/2015ActiveLipitor 80 MG Tablet1 tablet Orally Once a day; Duration: 90 daysActiveEffient 10 MG TabletOrally once a dayx 30 days then start plavix Not-Taking/PRNCarvedilol 6.25 MG Tablet1 tablet with food Orally Twice a day ActiveNitroglycerin 0.4 MG Tablet Sublingualprn CP, no more than 3 in 24 hours Sublingual prn; Duration: 90 daysActive Social History Social History Food Insecurity ScreeningSocial InfoQuestionAnswerNotesDrugsDrug useDenies drug useSection Notes: 02/14/15: Smoked 1.5 per day. Smokes occ now. Denies ETOH, quit 20 yrs ago. Was an alcoholic. Denies illegal drug use. 02/14/15: Smoked 1.5 per day. Smokes occ now. Denies ETOH, quit 20 yrs ago. Was an alcoholic. Denies illegal drug use. 02/14/15: Smoked 1.5 per day. Smokes occ now. Denies ETOH, quit 20 yrs ago. Was an alcoholic. Denies illegal drug use. Problems Problem Type SNOMED Code ICD Code Onset Dates Problem Status W/U Status Risk Notes Problem Hyperlipidemia (64237518) Hyperlipidemia (E78.5) ActiveconfirmedProblemHypertension (77142304)Hypertension (I10)Activeconfirmed ProblemTobacco abuse (6839296373)Tobacco abuse (Z72.0)ActiveconfirmedProblem Myocardial infarction (47764803)Myocardial infarction (I21.3)Activeconfirmed Plan Of Treatment No Information Insurance Providers Payer Name Payer Address Payer Phone Subscriber Number Group Number Insured Name Patient Relationship to Insured Coverage Start Date Coverage End Date [place] [address] [place] [address] [id number] ELENA COFFMANelf - patient is the insured Medical (General) History Medical History History ICD Code X2 [place] High CholesterolHypertensionMISurgical History Surgery Date(Month/Year) 4 stents neck platebroken ankle 2 screwsbroken tibia in 2 placesLt thigh gashhip bone in llpsZiohl25/2016Hospitalization History Reason Date(Month/Year) [place] 10/2015
--- OUTSIDE RECORDS SUMMARY | 2025-05-17 12:27 | XMS_ITS | CCD ---
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 173[facility] CenterXR [facility] LT min 2V*on 48-44-1657UF shoulder LT min 2V*[facility] [address] [place] [place] [address] XRay Report Signed Patient: Dung Coffman MR#: [id number] : 1950 Acct:[id number] Age/Sex: 73 / M ADM Date: 01/16/24 Loc: [facility] Room: Type: [facility] Attending Dr: Marjorie VALERIOC Copies to: CURRY [...] Impression dictated by: J Carlos Coelho Jr., D.OMargarito01/16/2024 2:48 PM Dictation Location: RADIO-PC-12 Transcribed By: AIDAN 01/16/24 144 Dictated By: J Carlos Coelho Jr, DO 01/16/241445 Signed By: 01/16/24 1448[facility] CenterCBC AUTO DIFFon 14-96-5910BDDG # 0.0 103/ulNormal0.0-0.1[facility] HospitalComment on above:Performed By: #### CBC #### [facility] [address] [place] [address] Dr. Toshia JiangBasophils/100 WBC (Bld)0.2 %Normal0.2-2.0[facility] Comment on above:Performed By: #### CBC #### [facility] [address] [place] [address] Dr. Toshia Pang #0.0 103/ulNormal0.0-0.7The [facility] For RehabilitationComment on above: Performed By: #### CBC #### [facility] [address] [place] [address] Dr. Tosiha Ledezmaosinophils/100 WBC (Bld)0.1 %Critically low0.9-7.0The [facility] For RehabilitationComment on above:Performed By: #### CBC #### [facility] [address] [place] [address] Dr. Toshia Ledezmarythrocyte distribution width (RBC) [Ratio]14.9 %Fuuxys82.0-15.0 [facility] HospitalComment on above:Performed By: #### CBC #### [facility] [address] [place] [address] Dr. Toshia JiangHematocrit (Bld) [Volume fraction]40.2 %Critically low42.0-54.0 [facility] HospitalComment on above:Performed By: #### CBC #### [facility] [address] [place] [address] Dr. Toshia JiangHemoglobin (Bld) [Mass/Vol]13.1 g/dLCritically low14.0-18.0The [facility] RehabilitationComment on above:Performed By: #### CBC #### [facility] [address] [place] [address] Dr. Toshia Gomez #0.04 10e3/ulCritically high0.00-0.03[facility] Comment on above:Performed By: #### CBC #### [facility] [address] [place] [address] Dr. Toshia Gomez %0.4 %Normal0.0-0.5The [facility] For RehabilitationComment on above: Performed By: #### CBC #### [facility] [address] [place] [address] Dr. Toshia Coronado #1.6 103/ulNormal1.2-3.8The [facility] For RehabilitationComment on above:Performed By: #### CBC #### [facility] [address] [place] [address] Dr. Toshia Smithhocytes/100 WBC (Bld)17.9 %Critically low20.5-60.0The [facility] For RehabilitationComment on above:Performed By: #### CBC #### [facility] [address] [place] [address] Dr. Toshia Wilson DIFF REQNONormalThe [facility] For RehabilitationComment on above: Performed By: #### CBC #### [facility] [address] [place] [address] Dr. Toshia Stoner (RBC) [Entitic mass]33.1 btIawmyx27.9-34.0The [facility] For RehabilitationComment on above:Performed By: #### CBC #### [facility] [address] [place] [address] Dr. Toshia Ramsey (RBC) [Mass/Vol]32.6 g/xQSmtcsd59.9-35.2The [facility] For RehabilitationComment on above:Performed By: #### CBC #### [facility] [address] [place] [address] Dr. Toshia Ledbetter (RBC) [Entitic vol]101.5 fLCritically high80.0-94.0The [facility] RehabilitationComment on above:Performed By: #### CBC #### [facility] [address] [place] [address] Dr. Toshia Escalante #0.6 103/ulNormal0.3-0.8The [facility] For RehabilitationComment on above:Performed By: #### CBC #### [facility] [address] [place] [address] Dr. Yilan ChangMonocytes/100 WBC (Bld)6.2 %Normal1.7-12.0[facility] Comment on above:Performed By: #### CBC #### [facility] [address] [place] [address] Dr. Toshia GormanUT #6.9 103/ulCritically high1.4-6.5The [facility] Comment on above:Performed By: #### CBC #### [facility] [address] [place] [address] Dr. Toshia Gormanutrophils/100 WBC (Bld)75.2 %Critically high43.0-75.0[facility] HospitalComment on above:Performed By: #### CBC #### [facility] [address] [place] [address] Dr. Toshia JiangPlatelet mean volume (Bld) [Entitic vol]9.9 fLNormal9.5-13.5The [facility] For RehabilitationComment on above:Performed By: #### CBC #### [facility] [address] [place] [address] Dr. Toshia JiangPLT151 103/ukHuqwbq568-685Xpp [facility] For RehabilitationComment on above: Performed By: #### CBC #### [facility] [address] [place] [address] Dr. Toshia JiangRBC3.96 106/ulCritically low4.70-6.10The [facility] For RehabilitationComment on above:Performed By: #### CBC #### [facility] [address] [place] [address] Dr. Toshia JiangWBC9.1 103/ulNormal4.0-11.0The [facility] For RehabilitationComment on above: Performed By: #### CBC #### [facility] [address] [place] [address] Dr. Toshia JiangCT ABD/PELVIS WO CONon 30-99-1546XS ABD/PELVIS WO CONEXAMINATION: CT ABD/PELVIS WO CON, 11/12/2022 5:25 PM [...] Electronically authenticated by: MIKE LUNA Date: 2022-11-12 18:07Normal [facility] URINE PROFILEon 31-04-6839Leeyvryrb Ql (U)NegativeNormal NEGATIVEThe [facility] on above:Performed By: #### ROHIT BONILLA #### [facility] [address] [place] [address] Dr. Toshia Jamil (U)CLEARNormalCLEARThe Mechanicsville HospitalComment on above: Performed By: #### CHAD, UMICRO #### [facility] [address] [address] [address] Toshia Coulter (U)LT. YELLOWNormalYELLOWMarymount HospitalComment on above:Performed By: #### CHAD, UMICRO #### [facility] [address] [place] [address] [address] Toshia Cano micrscopic examination will be performed if indicated. NormalSelect Medical Specialty Hospital - Cleveland-Fairhill HospitalComment on above:Performed By: #### JANAR, UMICRO #### [facility] [address] [place] [address] [address] Toshia JiangGlucose Ql (U)NegativeNormalNEGATIVEMarymount HospitalComment on above:Performed By: #### CHAD, UMICRO #### [facility] [address] [place] [address] [address] Toshia JiangHemoglobin Ql (U)TRACE-INTACTAbnormalNEGATIVEMarymount HospitalComment on above:Performed By: #### CHAD, UMICRO #### [facility] [address] [place] [address] [address] Toshia Camaraones Ql (U)NegativeNormalNEGATIVEMarymount HospitalComment on above:Performed By: #### CHAD, UMICRO #### [facility] [address] [place] [address] [address] Toshia JiangLEUKOCYTESNegativeNormalNEGATIVEMarymount HospitalCompromedica mon[facility] on above:Performed By: #### CHAD, UMICRO #### [facility] [address] [place] [address] [address] Toshia Condetrite Ql (U)NegativeNormalNEGATIVEMarymount HospitalComment on above:Performed By: #### ERUR, UMICRO #### [facility] [address] [place] [address] [address] Toshia JiangpH (U)5.5 [pH]Normal5-9Marymount HospitalComment on above: Performed By: #### INDY BONILLAICRO #### [facility] [address] [place] [address] Dr. Toshia JiangProtein (U) [Mass/Vol]30 mg/dLAbnormalNEGATIVE/ TRACEThe [facility] RehabilitationComment on above:Performed By: #### INDY BONILLAICRO #### [facility] [address] [place] [address] Dr. Toshia JiangSPEC GRAVITY1.667Rtxrmdwp7.005-<=1.025The [facility] Comment on above:Performed By: #### INDY BONILLAICRO #### [facility] [address] [place] [address] Dr. Toshia Fontenot MICRO INDINDICATEDNormalThe [facility] For RehabilitationComment on above: Performed By: #### CHRISTINA BONILLARO #### [facility] [address] [place] [address] Dr. Toshia Dennybilinogen Qn (U)0.2 {Nilson'U}/dLNormal0.2 - 1.0The [facility] For RehabilitationComment on above:Performed By: #### INDY BONILLAICRO #### [facility] [address] [place] [address] Dr. Toshia JiangLIPASEon 10-24-5555Ctcrzf [Catalytic activity/Vol]60.0 U/L Critically low73.0-393.0The [facility] For RehabilitationComment on above:Performed By: #### LIPZaida, CMP #### [facility] [address] [place] [address] Dr. Toshia JiangPROF 14(COMP METB)on 37-79-5274Rjhatrk [Mass/Vol]3.5 g/dLNormal 3.4-5.0The [facility] For RehabilitationComment on above:Performed By: #### LIPA, CMP #### [facility] [address] [place] [address] Dr. Toshia JiagnAlbumin/Globulin [Mass ratio]0.9 {ratio}NormalThe [facility] For RehabilitationComment on above:Performed By: #### LIPZaida, CMP #### [facility] [address] [address] [address] Toshia CastilloP [Catalytic activity/Vol]71 U/GUynsfo97-135Wxd [facility] For RehabilitationComment on above:Performed By: #### LIPA, CMP #### [facility] [address] [address] [address] Toshia CastilloT [Catalytic activity/Vol]32 U/PAkzurb31-23Gyc [facility] RehabilitationComment on above:Performed By: #### LIPA, CMP #### [facility] [address] [address] [address] Toshia Reddingon gap [Moles/Vol]15.7 mmol/LNormalThe [facility] Comment on above:Performed By: #### LIPA, CMP #### [facility] [address] [address] [address] Toshia JiangAST [Catalytic activity/Vol]33 U/IWzziad09-01Meo [facility] For RehabilitationComment on above:Performed By: #### LIPA, CMP #### [facility] [address] [address] [address] Toshia JiangBilirubin [Mass/Vol]0.4 mg/dLNormal0.2-1.0The [facility] Comment on above:Performed By: #### LIPA, CMP #### [facility] [address] [address] [address] Toshia JiangCalcium [Mass/Vol]8.6 mg/dLNormal8.5-10.1[facility] Comment on above:Performed By: #### LIPA, CMP #### [facility] [address] [address] [address] Toshia JiangChloride [Moles/Vol]107 mmol/CYrpicb45-488Jej [facility] Comment on above:Performed By: #### LIPA, CMP #### [facility] [address] [address] [address] Toshia JiangCO2 [Moles/Vol]20.1 mmol/LCritically low21.0-32.0The [facility] For RehabilitationComment on above:Performed By: #### LIPA, CMP #### [facility] [address] [address] [address] Toshia JiangCreatinine [Mass/Vol]1.52 mg/dLCritically high0.70-1.30The [facility] RehabilitationComment on above:Performed By: #### LIPA, CMP #### [facility] [address] [place] [address] [address] Toshia LedezmaGFR-AF HGGVYDCF10 mL/min/1.49v6Jyfmbshvsd low>=60The [facility] For RehabilitationComment on above:Performed By: #### LIPA, CMP #### [facility] [address] [address] [address] Toshia Dumas-NON AF DZJFLRCD54 mL/min/1.86a3Cgnpysohqg low>=60The [facility] For RehabilitationComment on above:Performed By: #### LIPA, CMP #### [facility] [address] [place] [address] Dr. Toshia JiangGlobulin (S) [Mass/Vol]3.7 g/dLNormalThe [facility] RehabilitationComment on above:Performed By: #### LIPA, CMP #### [facility] [address] [place] [address] Dr. Toshia JiangGlucose [Mass/Vol]128 mg/dLCritically gunm03-314Bvf [facility] RehabilitationComment on above:Performed By: #### LIPA, CMP #### [facility] [address] [place] [address] Dr. Toshia JiangPotassium [Moles/Vol]3.8 mmol/LNormal3.5-5.1The [facility] Comment on above:Performed By: #### LIPA, CMP #### [facility] [address] [place] [address] Dr. Toshia JiangProtein [Mass/Vol]7.2 g/dLNormal6.4-8.2The [facility] Comment on above:Performed By: #### LIPA, CMP #### [facility] [address] [place] [address] Dr. Toshia JiangSodium [Moles/Vol]139 mmol/UOidnzm256-087AqlMarymount Hospital Comment on above:Performed By: #### JB, CMP #### [facility] [address] [address] [address] Toshia Shahid nitrogen [Mass/Vol]12.0 mg/dLNormal7.0-18.0[facility] HospitalComment on above:Performed By: #### JB, CMP #### [facility] [address] [address] [address] Toshia Shahid nitrogen/Creatinine [Mass ratio]7.9 mg/mgNoGerman HospitalComment on above:Performed By: #### JB, CMP #### [facility] [address] [address] [address] Toshia Hernandez MICROSCOPIC ONLYon 47-54-3176LYFJXYHVMDEY SEENNormalNONE SEENMarymount HospitalComment on above:Performed By: #### CHRISTINA BONILLARO ####[facility] [address] Toshia JiangBacteria identified Cx Nom (U)NOT INDICATEDNoGerman HospitalComment on above:Performed By: #### CHRISTINA BONILLARO ####[facility] [address] Toshia JiangCASTNONE SEEN NormalNONE SEENMarymount HospitalComment on above:Performed By: #### CHRISTINA BONILLARO ####[facility] [address] [place] [address]DrMargarito JiangCrystals LM Nom (Urine sed)NONE SEENNormalNONE SEENMarymount HospitalComment on above:Performed By: #### INDY BONILLAICRO ####[facility] [address] [place] [address]Dr. Toshia Jiang Epithelial cells LM Ql (Urine sed)RARENormalNONE SEEN /RAREMarymount Hospital Comment on above:Performed By: #### INDY BONILLAICRO ####[facility] [address] [place] [place] [address]Dr. Toshia ChangMUCOUSNONE SEEN NormalNONE SEENMarymount HospitalComment on above:Performed By: #### ROHIT BONILLA ####[facility] [address] [place], [place] [address]Vo. Toshia XlbruHNB6-0Zfqizl7-3Fen [facility] For RehabilitationComment on above: Performed By: #### ROHIT BONILLA ####[facility] [address] [place], [place]Dr. Toshia JiangWBCNONE SEENNormalNONE SEENMarymount HospitalComment on above:Performed By: #### ROHIT BONILLA ####[facility] [address] [place], [place]Dr. Toshia ChangBasophils Auto (Bld) [#/Vol]Ordered By: Elizabeth Ramey on 19-30-8208Laohkfhef (Bld) [#/Vol]0.0 10*3/uL0.0-0.2FMercy Health Allen HospitalBasophils/100 WBC Auto (Bld) Ordered By: Elizabeth Ramey on 66-76-0003Hmrjctcuj/100 WBC (Bld)0.5 %.[facility] CenterCreatinine and Glomerular filtration rate.predicted panel (S/P/Bld)Ordered By: Elizabeth Ramey on 33-21-6607Jiqezfplcy [Mass/Vol]1.15 mg/dL 0.64-1.27[facility] CenterEosinophils Auto (Bld) [#/Vol]Ordered By: Elizabeth Ramey on 57-32-0824Vzqhayypqqf (Bld) [#/Vol]0.1 10*3/uL0.0-0.45 [facility] CenterEosinophils/100 WBC Auto (Bld)Ordered By: Elizabeth Ramey on 94-30-5426Ensrnreqzho/100 WBC (Bld)1.2 %.[facility] Medical CenterErythrocyte distribution width Auto (RBC) [Ratio]Ordered By: Elizabeth Ramey on 67-87-9393Kzvuvcsxynv distribution width (RBC) [Ratio]13.4 %12.0-14.8 [facility] Medical CenterEstimated glomerular filtration rate (GFR) non- AmericanOrdered By: Elizabeth Ramey on 48-99-5804HHP/1.73 sq M.predicted among non-blacks MDRD (S/P/Bld) [Vol rate/Area]> 60 mL/MinMercy Health Springfield Regional Medical CenterHematocrit Auto (Bld) [Volume fraction]Ordered By: Elizabeth Ramey on 41-26-2120Yhnwkasdsf (Bld) [Volume fraction]30.6 %38.8-50.0[facility] CenterHemoglobin [Mass/volume] in BloodOrdered By: Elizabeth Ramey on 22-92-2708Beasdxxlbm (Bld) [Mass/Vol]10.4 g/dL13.0-17.0[facility] CenterLeukocytes [#/volume] corrected for nucleated erythrocytes in Blood by Automated counOrdered By: Elizabeth Ramey on 73-67-9717AZU corrected for nucl RBC Auto (Bld) [#/Vol]6.3 10*3/uL4.1-10.5FMercy Health Allen Hospital Lymphocytes Auto (Bld) [#/Vol]Ordered By: Elizabeth Ramey on 16-63-5819Jxafmznvdlj (Bld) [#/Vol]1.9 10*3/uL1.00-4.8[facility] Medical CenterLymphocytes/100 WBC Auto (Bld)Ordered By: Elizabeth Ramey on 93-09-8675Aoklfahcqtx/100 WBC (Bld) 30.0 %.[facility] Medical CenterMCH Auto (RBC) [Entitic mass]Ordered By: Elizabeth Ramey on 07-09-5767IRL (RBC) [Entitic mass]33.3 pg27.5-35.2FMercy Health Allen HospitalMCHC Auto (RBC) [Mass/Vol]Ordered By: Elizabeth Ramey on 14-08-6103GJIU (RBC) [Mass/Vol]34.1 g/dL32.5-35.6FMercy Health Allen HospitalMCV Auto (RBC) [Entitic vol]Ordered By: Elizabeth Ramey on 00-89-3340FHO (RBC) [Entitic vol]97.5 fL83.5-101[facility] Medical CenterMonocytes Auto (Bld) [#/Vol]Ordered By: Elizabeth Ramey on 96-92-1843Hmyeieglc (Bld) [#/Vol]0.6 10*3/uL0.0-0.8[facility] CenterMonocytes/100 WBC Auto (Bld) Ordered By: Elizabeth Ramey on 67-79-2755Puluweubc/100 WBC (Bld)9.3 %.[facility] Medical CenterNeutrophils Auto (Bld) [#/Vol]Ordered By: Elizabeth Ramey on 77-20-7148Jlsunwdxwqj (Bld) [#/Vol]3.7 10*3/uL1.8-7.7FMercy Health Allen HospitalNeutrophils/100 WBC Auto (Bld)Ordered By: Elizabeth Ramey on 07-12-2022 Neutrophils/100 WBC (Bld)59.0 %.[facility] CenterNo Panel InformationOrdered By: Elizabeth Ramey on 81-32-1448Rsfbajxze GFR () > 60 mL/MinMercy Health Springfield Regional Medical CenterComment on above:GFR estimated reference range: According to KDOQI guidelines, <60 ml/min/1.73m2 is sufficient todiagnose a patient with chronic kidney disease.Pharmacy Creatinine Clearance (Chem47.75[facility] CenterNucleated erythrocytes [Presence] in Blood by Automated countOrdered By: Elizabeth Ramey on 82-05-7497Gcnefmwgo RBC Auto Ql (Bld)0.1 /100{WBC}0-0.5FMercy Health Allen HospitalPlatelet mean volume Auto (Bld) [Entitic vol]Ordered By: Elizabeth Ramey on 62-45-9958Vfcffyax mean volume (Bld) [Entitic vol]9.2 fL6.6-10.1FMercy Health Allen Hospital Platelets Auto (Bld) [#/Vol]Ordered By: Elizabeth Ramey on 88-02-6832Mgevikmtb (Bld) [#/Vol]103 10*3/cE621-252NbgmssfqeMercy Health Springfield Regional Medical CenterRBC Auto (Bld) [#/Vol]Ordered By: Elizabeth Ramey on 97-90-2406DSW (Bld) [#/Vol]3.14 10*6/uL 3.90-5.60[facility] Hospitalerum or plasma anion gap determinationOrdered By: Elizabeth Ramey on 83-57-5498Aobdj gap [Moles/Vol]7.7 mmol/L6.0-15.0[facility] Hospitalerum or plasma calcium measurement (mass/volume)Ordered By: Elizabeth Ramey on 22-06-9962Pnwtenf [Mass/Vol] 8.2 mg/dL8.2-10.2FBarney Children's Medical Centererum or plasma chloride measurement (moles/volume)Ordered By: Elizabeth Ramey on 13-19-5109Jrkhzcqp [Moles/Vol]110 mmol/X17-464OsomtkclcMercy Health West Hospitalerum or plasma glucose measurement (mass/volume)Ordered By: Elizabeth Ramey on 65-84-4882Vlmhjjz [Mass/Vol]102 mg/rZ55-580GvxgcbnfjMercy Health Springfield Regional Medical CenterComment on above:ADA recommended reference rangeRandom Glucose Reference Range is dependent on time and content of last meal. Glucose of more than 200 mg/dL in a nonstressed, ambulatory subject supports the diagnosisof Diabetes Mellitus.Serum or plasma potassium measurement (moles/volume)Ordered By: Elizabeth Ramey on 07-12-2022 Potassium [Moles/Vol]3.7 mmol/L3.5-5.1FBarney Children's Medical Centererum or plasma sodium measurement (moles/volume)Ordered By: Elizabeth Ramey on 07-12-2022 Sodium [Moles/Vol]135 mmol/V856-705UabmvmcyjMercy Health West Hospitalerum or plasma total carbon dioxide measurement (moles/volume)Ordered By: Elizabeth Ramey on 16-97-0495OW8 [Moles/Vol]21.0 mmol/L22.0-30.0[facility] Serum or plasma urea nitrogen measurement (mass/volume)Ordered By: Elizabeth Ramey on 41-75-8120Agxj nitrogen [Mass/Vol]9 mg/dL9-23[facility] CenterWBC Auto (Bld) [#/Vol]Ordered By: Elizabeth Ramey on 15-72-1112XZO (Bld) [#/Vol]6.3 10*3/uL4.1-10.5FMercy Health Allen HospitalCreatinine [Mass/volume] in UrineOrdered By: Elizabethzaida Ramey on 72-06-8748Xzvueeyrna (U) [Mass/Vol]83.2 mg/dLMercy Health Springfield Regional Medical CenterComment on above:No reference range establishedUrine sodium measurement (moles/volume)Ordered By: Elizabethzaiad Ramey on 99-45-5407Zqsrjc (U) [Moles/Vol]111 mmol/LFMercy Health Allen HospitalComment on above:No reference range establishedActivated partial thromboplastin time (aPTT) in platelet poor plasma by coagulation aOrdered By: Tomás Roche on 88-37-0042eVQI Coag (PPP) [Time]28.8 s25.1-36.5FMercy Health Allen HospitalAmphetamine Screen Ql (U)Ordered By: Tomás Roche on 01-39-9543Cedadttwjjle Ql (U)NegativeNegThe [facility] Hospital Barbiturates [Presence] in UrineOrdered By: Tomás Roche on 2022 Barbiturates Ql (U)NegativeNegThe Christ HospitalBasophils Auto (Bld) [#/Vol]Ordered By: Tomás Roche on 78-82-2139Jtkityoyh (Bld) [#/Vol]0.0 10*3/uL0.0-0.2FMercy Health Allen HospitalBasophils/100 WBC Auto (Bld)Ordered By: Tomás Roche on 19-40-1221Zrtseefrf/100 WBC (Bld)0.6 %. [facility] CenterBenzodiazepines [Presence] in UrineOrdered By: Tomás Roche on 87-45-4019Rdtifxohygddcxz Ql (U)NegativeNegativeMercy Health [facility] Regional Medical CenterBody fluid albumin measurement (mass/volume)Ordered By: Tomás Roche on 42-58-1826Tqeuide (Body fld) [Mass/Vol]3.5 g/dL3.2-5.5 [facility] CenterCOVID CepheidOrdered By: Tomás Roche on 50-79-0819GPAQ-CoV-2 (COVID-19) Ab IA QlNegativeNegativeMercy Health [facility] Regional Medical CenterComment on above:This is a duplicate [employer] Xpert Xpress CoV- 2/Flu/RSV Plus RNA by RT-PCR result to be used for statistical tracking purpose only.SARS-CoV-2 (COVID-19) RNA KERRIE+probe Ql (Unsp spec)[facility] CenterCannabinoids [Presence] in Urine by Screen methodOrdered By: Tomás Roche on 51-36-3911Jporwalgpvej Screen Ql (U)PositiveNegative [facility] CenterComment on above:These are unconfirmed results and should not be used for legal purposes. Drug Cut-Off Concentration: AMPH 1000 ng/mL NOE 200 ng/mL JACKI 200 ng/mL COCM 300 ng/mL OP 300 ng/mL PCP 25 ng/mL THC 20 ng/mLCreatine kinase [Enzymatic activity/volume] in Serum or Plasma Ordered By: Tomás Roche on 72-94-8532QZ [Catalytic activity/Vol]96 U/L 22-269[facility] CenterCreatinine and Glomerular filtration rate.predicted panel (S/P/Bld)Ordered By: Tomás Roche on 2022 Creatinine [Mass/Vol]2.28 mg/dL0.64-1.27[facility] Eosinophils Auto (Bld) [#/Vol]Ordered By: Tomás Roche on 2022 Eosinophils (Bld) [#/Vol]0.0 10*3/uL0.0-0.45[facility] Eosinophils/100 WBC Auto (Bld)Ordered By: Tomás Roche on 2022 Eosinophils/100 WBC (Bld)0.6 %.[facility] CenterErythrocyte distribution width Auto (RBC) [Ratio]Ordered By: Tomás Roche on 2022 Erythrocyte distribution width (RBC) [Ratio]13.2 %12.0-14.8[facility] CenterEstimated glomerular filtration rate (GFR) non- Ordered By: Tomás Roche on 60-46-5355GPU/1.73 sq M.predicted among non- blacks MDRD (S/P/Bld) [Vol rate/Area]28 mL/MinMercy Health [facility] Center Globulin Calc (S) [Mass/Vol]Ordered By: Tomás Roche on 86-23-5650Cdytopmq (S) [Mass/Vol]2.9 g/dLMercy Health Springfield Regional Medical CenterHematocrit Auto (Bld) [Volume fraction]Ordered By: Tomás Roche on 70-64-5782Kedoregrbk (Bld) [Volume fraction]36.7 %38.8-50.0[facility] CenterHemoglobin [Mass/volume] in BloodOrdered By: Tomás Roche on 06-40-6905Hgvmtwqnkk (Bld) [Mass/Vol]12.2 g/dL13.0-17.0[facility] CenterLaboratory - Chemistry and Chemistry - challengeOrdered By: Tomás Roche on 2022 Magnesium [Mass/Vol]2.1 mg/dL1.6-2.6FMercy Health Allen HospitalNatriuretic peptide B (Bld) [Mass/Vol]221.0 pg/mL5-100[facility] Laboratory - CoagulationOrdered By: Tomás Roche on 21-23-2509AA Coag (PPP) [Time]11.9 s9.0-12.9[facility] CenterLaboratory - Drug toxicologyOrdered By: Tomás Roche on 39-86-1190Jkbvuak Ql (U)Negative NegativeMercy Health Springfield Regional Medical CenterLeukocytes [#/volume] corrected for nucleated erythrocytes in Blood by Automated counOrdered By: Tomás Roche on 63-50-7092EHS corrected for nucl RBC Auto (Bld) [#/Vol]6.8 10*3/uL4.1-10.5 [facility] CenterLymphocytes Auto (Bld) [#/Vol]Ordered By: Tomás Roche on 43-71-0267Ovyevzukdci (Bld) [#/Vol]1.4 10*3/uL1.00-4.8 [facility] CenterLymphocytes/100 WBC Auto (Bld)Ordered By: Tomás Roche on 23-03-7790Mzixgddkrqf/100 WBC (Bld)20.4 %.[facility] CenterMCH Auto (RBC) [Entitic mass]Ordered By: Tomás Roche on 28-17-8939YLR (RBC) [Entitic mass]33.0 pg27.5-35.2FMercy Health Allen HospitalMCHC Auto (RBC) [Mass/Vol]Ordered By: Tomás Roche on 73-49-0965ITIH (RBC) [Mass/Vol]33.3 g/dL32.5-35.6FMercy Health Allen HospitalMCV Auto (RBC) [Entitic vol]Ordered By: Tomás Roche on 14-28-9627BSQ (RBC) [Entitic vol]99.2 fL83.5-101[facility] CenterMonocyte distribution width [Entitic volume] in Blood by AutomatedOrdered By: Tomás Roche on 69-92-4717Knutxeow distribution width Auto (Bld) [Entitic vol]15.55 % 0.00-20.00[facility] CenterMonocytes Auto (Bld) [#/Vol]Ordered By: Tomás Roche on 43-70-4329Snhnfgvdt (Bld) [#/Vol]0.5 10*3/uL0.0-0.8 [facility] CenterMonocytes/100 WBC Auto (Bld)Ordered By: Tomás Roche on 94-42-0441Uirfbeojz/100 WBC (Bld)6.9 %.[facility] CenterNeutrophils Auto (Bld) [#/Vol]Ordered By: Tomás Roche on 96-08-5928Cupiyjkfuao (Bld) [#/Vol]4.9 10*3/uL1.8-7.7FMercy Health Allen HospitalNeutrophils/100 WBC Auto (Bld)Ordered By: Tomás Roche on 2022 Neutrophils/100 WBC (Bld)71.5 %.[facility] CenterNo Panel InformationOrdered By: Tomás Roche on 53-91-6421Twgbbithk GFR ()34 mL/MinMercy Health Springfield Regional Medical CenterComment on above:GFR estimated reference range: According to KDOQI guidelines, <60 ml/min/1.73m2 is sufficient todiagnose a patient with chronic kidney disease.Pharmacy Creatinine Clearance (Chem24.00[facility] CenterNucleated erythrocytes [Presence] in Blood by Automated countOrdered By: Tomás Roche on 63-73-2134Pgefwlcsw RBC Auto Ql (Bld)0.1 /100{WBC}0-0.5FMercy Health Allen HospitalPhencyclidine Screen Ql (U)Ordered By: Tomás Roche on 78-81-4297Zpijyhkmsndck Ql (U)NegativeNegativeMer[facility] Health [facility] Platelet mean volume Auto (Bld) [Entitic vol]Ordered By: Tomás Roche on 01-38-2392Lpsuyjip mean volume (Bld) [Entitic vol]9.2 fL6.6-10.1FMercy Health Allen HospitalPlatelet poor plasma international normalized ratio (INR) by coagulation assay (relatOrdered By: Tomás Roche on 41-21-2696MJN Coag (PPP) [Relative time]1.1 {INR}[facility] CenterComment on above: INR Therapeutic Range A) Pre- and Peroperative OAT started two weeks before surgery. NOT HIP SURGERY: 1.5 - 2.5 HIP SURGERY: 2 - 3B) Primary and secondary prevention of venous THROMBOSIS: 2 - 3C) Active venous thrombosis, pulmonary embolismand prevention of recurrent venous thrombosis: 2 - 3D) Prevention of arterial thromboembolismincluding patients with mechanical heart valves: 3 - 4.5 Platelets Auto (Bld) [#/Vol]Ordered By: Tomás Roche on 19-58-3408Bkoxisunv (Bld) [#/Vol]136 10*3/aD704-894OljbwwqmmMercy Health Springfield Regional Medical CenterProtein [Mass/volume] in Serum or PlasmaOrdered By: Tomás Roche on 2022 Protein [Mass/Vol]6.4 g/dL6.1-7.9[facility] CenterRBC Auto (Bld) [#/Vol]Ordered By: Tomás Roche on 86-41-1381WWI (Bld) [#/Vol]3.70 10*6/uL 3.90-5.60[facility] Hospitalerum or plasma alanine aminotransferase measurement without P-5'-P (enzymatic activiOrdered By: Tmoás Roche on 77-47-7667KGL No additional P-5'-P [Catalytic activity/Vol] 44 U/S92-68OnullsvvlMercy Health West Hospitalerum or plasma albumin/globulin mass ratioOrdered By: Tomás Roche on 97-27-7490Uzuxkqe/Globulin [Mass ratio]1.2 {ratio}[facility] Hospitalerum or plasma alkaline phosphatase measurement (enzymatic activity/volume)Ordered By: Tomás Roche on 78-79-8577BAK [Catalytic activity/Vol]55 U/I65-78MkypzfjnhMercy Health West Hospitalerum or plasma anion gap determinationOrdered By: Tomás Roche on 55-58-8360Ydqmc gap [Moles/Vol]15.3 mmol/L6.0-15.0[facility] Hospitalerum or plasma aspartate aminotransferase measurement (enzymatic activity/volume)Ordered By: Tomás Roche on 49-99-5884HMH [Catalytic activity/Vol]37 U/Z02-10OiczgvlicMercy Health West Hospitalerum or plasma calcium measurement (mass/volume)Ordered By: Tomás Roche on 15-40-3978Dzbcgxs [Mass/Vol]8.4 mg/dL8.2-10.2FBarney Children's Medical Centererum or plasma chloride measurement (moles/volume)Ordered By: Tomás Roche on 2022 Chloride [Moles/Vol]105 mmol/N23-882LrjoynxggMercy Health West Hospitalerum or plasma creatine kinase MB (CKMB)/total creatine kinase (CK) ratio by calcula Ordered By: Tomás Roche on 35-23-1192ET.MB Calc [Catalytic fraction]2.8 % 0.00-2.50[facility] Hospitalerum or plasma creatine kinase MB measurement (mass/volume)Ordered By: Tomás Roche on 24-45-5976YC.MB [Mass/Vol]2.7 ng/mL0.6-6.3FBarney Children's Medical Centererum or plasma glucose measurement (mass/volume)Ordered By: Tomás Roche on 2022 Glucose [Mass/Vol]115 mg/vR34-815SboymzgqxMercy Health [facility] Regional Medical CenterComment on above:ADA recommended reference rangeRandom Glucose Reference Range is dependent on time and content of last meal. Glucose of more than 200 mg/dL in a nonstressed, ambulatory subject supports the diagnosisof Diabetes Mellitus.Serum or plasma potassium measurement (moles/volume)Ordered By: Tomás Roche on 78-35-0705Xzfridmag [Moles/Vol]4.0 mmol/L3.5-5.1FBarney Children's Medical Centererum or plasma sodium measurement (moles/volume)Ordered By: Tomás Roche on 42-21-2032Ikungm [Moles/Vol]135 mmol/N065-272BnbgcxxzhMercy Health West Hospitalerum or plasma total bilirubin measurement (mass/volume)Ordered By: Tomás Roche on 95-42-9059Zvjgswtpi [Mass/Vol]0.6 mg/dL0.3-1.2FBarney Children's Medical Centererum or plasma total carbon dioxide measurement (moles/volume)Ordered By: Tomás Roche on 72-22-6863LJ5 [Moles/Vol]18.7 mmol/L22.0-30.0[facility] Hospitalerum or plasma urea nitrogen measurement (mass/volume)Ordered By: Tomás Roche on 14-55-8958Zkhs nitrogen [Mass/Vol]20 mg/dL9-23[facility] CenterTS DL <= 0.005 mIU/L QnOrdered By: Tomás Roche on 95-55-7102YLF Qn0.96 m[IU]/L0.45-5.33 [facility] CenterTroponin I.cardiac [Mass/volume] in Serum or Plasma by High sensitivity methodOrdered By: Tomás Roche on 2022 Troponin I.cardiac High sensitivity method [Mass/Vol]11 pg/mL0-20[facility] CenterUrine cocaine detectionOrdered By: Tomás Roche on 63-39-6252Vcylapw Ql (U)NegativeNegativeMercy Health Springfield Regional Medical CenterWBC Auto (Bld) [#/Vol]Ordered By: Tomás Roche on 58-76-7530APW (Bld) [#/Vol] 6.8 10*3/uL4.1-10.5FMercy Health Allen HospitalPROF CHEM 8 (BAS METB)on 12-15-2140Hsvvh gap [Moles/Vol]9.2 mmol/LNormalThe [facility] For RehabilitationComment on above:Performed By: #### BMP #### [facility] [address] [address] [address] Toshia JiangCalcium [Mass/Vol]8.5 mg/dLNormal8.5-10.1[facility] Comment on above:Performed By: #### BMP #### [facility] [address] [address] [address] Toshia JiangChloride [Moles/Vol]103 mmol/WEjjlhz93-739Puf [facility] Comment on above:Performed By: #### BMP #### [facility] [address] [place] [address] Dr. Toshia JiangCO2 [Moles/Vol]29.3 mmol/UXahabo31.0-32.0The [facility] Comment on above:Performed By: #### BMP #### [facility] [address] [address] [address] Toshia JiangCreatinine [Mass/Vol]1.12 mg/dLNormal0.70-1.30The [facility] RehabilitationComment on above:Performed By: #### BMP #### [facility] [address] [place] [address] Dr. Pope ChangEGFR-AF UZBEK>60Normal>=60The [facility] For RehabilitationComment on above:Performed By: #### BMP #### [facility] [address] [place] [address] Dr. Toshia LedezmaGFR-NON AF UZBEK>60Normal>=60The [facility] For RehabilitationComment on above:Performed By: #### BMP #### [facility] [address] [place] [address] Dr. Toshia JiangGlucose [Mass/Vol]109 mg/dLCritically qdhv51-151Smx [facility] RehabilitationComment on above:Performed By: #### BMP #### [facility] [address] [place] [address] Dr. Toshia JiangPotassium [Moles/Vol]3.5 mmol/LNormal3.5-5.1The [facility] Comment on above:Performed By: #### BMP #### [facility] [address] [place] [address] Dr. Toshia JiangSodium [Moles/Vol]138 mmol/MCpmkss608-999Cjj [facility] Comment on above:Performed By: #### BMP #### [facility] [address] [address] [address] Toshia JiangUrea nitrogen [Mass/Vol]12.0 mg/dLNormal7.0-18.0The [facility] RehabilitationComment on above:Performed By: #### BMP #### [facility] [address] [place] [address] Dr. Toshia JiangUrea nitrogen/Creatinine [Mass ratio]10.7 mg/mgNormalThe [facility] RehabilitationComment on above:Performed By: #### BMP #### [facility] [address] [place] [address] Dr. Toshia JiangPROF CHEM 8 (BAS METB)on 15-89-4099Gmdip gap [Moles/Vol]9.0 mmol/LNormalThe [facility] RehabilitationComment on above:Performed By: #### BMP #### [facility] [address] [place] [address] Dr. Toshia JiangCalcium [Mass/Vol]8.4 mg/dLCritically low8.5-10.1The [facility] RehabilitationComment on above:Performed By: #### BMP #### [facility] [address] [place] [address] Dr. Toshia JiangChloride [Moles/Vol]103 mmol/UYuslnu86-861Gnh [facility] Comment on above:Performed By: #### BMP #### [facility] [address] [place] [address] Dr. Toshia JiangCO2 [Moles/Vol]32.1 mmol/LCritically high21.0-32.0The [facility] RehabilitationComment on above:Performed By: #### BMP #### [facility] [address] [place] [address] Dr. Toshia JiangCreatinine [Mass/Vol]1.03 mg/dLNormal0.70-1.30The [facility] RehabilitationComment on above:Performed By: #### BMP #### [facility] [address] [place] [address] Dr. Toshia LedezmaGFR-AF UZBEK>60Normal>=60The [facility] RehabilitationComment on above:Performed By: #### BMP #### [facility] [address] [place] [address] Dr. Toshia LedezmaGFR-NON AF UZBEK>60Normal>=60[facility] HospitalComment on above:Performed By: #### BMP #### [facility] [address] [address] [address] Toshia JiangGlucose [Mass/Vol]103 mg/uFQbwyxf84-623Pzv [facility] Comment on above:Performed By: #### BMP #### [facility] [address] [address] [address] Toshia JiangPotassium [Moles/Vol]3.1 mmol/LCritically low3.5-5.1[facility] HospitalComment on above:Performed By: #### BMP #### [facility] [address] [address] [address] Toshia JiangSodium [Moles/Vol]141 mmol/PVxmujh205-419Kbh [facility] Comment on above:Performed By: #### BMP #### [facility] [address] [address] [address] Toshia JiangUrea nitrogen [Mass/Vol]11.0 mg/dLNormal7.0-18.0[facility] HospitalComment on above:Performed By: #### BMP #### [facility] [address] [place] [address] Dr. Toshia Shahid nitrogen/Creatinine [Mass ratio]10.7 mg/mgNormalThe [facility] For RehabilitationComment on above:Performed By: #### BMP #### [facility] [address] [place] [address] Dr. Toshia LedezmaCHOCARDIO M/2D COMPLETEon 96-05-3008ECKJYAMBBD M/2D COMPLETE Patient: DUNG COFFMAN Exam Date: 03/03/2022 : 1950 Gender:M Ordering : [facility] Admission #: [id number] Family : DR EVARISTO TAVARES . Order #: [id number] CLICK HERE TO VIEW EXAM ECHOCARDIOGRAM REPORT [...] by: Marshal Miller M.D. on 03/03/2022 at 20:08[facility]-FairhillBNPon 50-11-8445Kwntozhukul peptide B (Bld) [Mass/Vol]3595.0 pg/mL Critically high<=900.0The [facility]y Hospitalment on above:Performed By: #### BNP, CMP #### [facility] [address] [place] [address] Dr. Toshia Bacon 14(COMP METB)on 83-47-4256Jshpvml [Mass/Vol]3.0 g/dL Critically low3.4-5.0The [facility] For RehabilitationComment on above:Performed By: #### BNP, CMP #### [facility] [address] [place] [address] Dr. Toshia JiangAlbumin/Globulin [Mass ratio]0.8 {ratio}NormalThe [facility] For RehabilitationComment on above:Performed By: #### BNP, CMP #### [facility] [address] [place] [address] Dr. Toshia Long [Catalytic activity/Vol]53 U/BYbbvjz17-210Uww [facility] RehabilitationComment on above:Performed By: #### BNP, CMP #### [facility] [address] [place] [address] Dr. Toshia Mosqueda [Catalytic activity/Vol]28 U/KWfhutz25-18Iox [facility] RehabilitationComment on above:Performed By: #### BNP, CMP #### [facility] [address] [place] [address] Dr. Toshia Adams gap [Moles/Vol]9.8 mmol/LNormalThe [facility] For RehabilitationComment on above:Performed By: #### BNP, CMP #### [facility] [address] [place] [address] Dr. Toshia Evans [Catalytic activity/Vol]23 U/VMymiji70-54Ygy [facility] RehabilitationComment on above:Performed By: #### BNP, CMP #### [facility] [address] [place] [address] Dr. Toshia JiangBilirubin [Mass/Vol]0.3 mg/dLNormal0.2-1.0The [facility] Comment on above:Performed By: #### BNP, CMP #### [facility] [address] [place] [address] Dr. Toshia JiangCalcium [Mass/Vol]8.5 mg/dLNormal8.5-10.1The [facility] Comment on above:Performed By: #### BNP, CMP #### [facility] [address] [place] [address] Dr. Toshia JiangChloride [Moles/Vol]104 mmol/FHocers35-141Prw [facility] Comment on above:Performed By: #### BNP, CMP #### [facility] [address] [place] [address] Dr. Toshia JiangCO2 [Moles/Vol]30.0 mmol/IOwvzaw97.0-32.0The [facility] Comment on above:Performed By: #### BNP, CMP #### [facility] [address] [place] [address] Dr. Toshia JiangCreatinine [Mass/Vol]0.89 mg/dLNormal0.70-1.30The [facility] RehabilitationComment on above:Performed By: #### BNP, CMP #### [facility] [address] [place] [address] Dr. oTshia LedezmaGFR-AF UZBEK>60Normal>=60The [facility] For RehabilitationComment on above:Performed By: #### BNP, CMP #### [facility] [address] [place] [address] Dr. Toshia LedezmaGFR-NON AF UZBEK>60Normal>=60The [facility] RehabilitationComment on above:Performed By: #### BNP, CMP #### [facility] [address] [place] [address] Dr. Toshia JiangGlobulin (S) [Mass/Vol]3.7 g/dLNormalThe [facility] RehabilitationComment on above:Performed By: #### BNP, CMP #### [facility] [address] [place] [address] Dr. Toshia JiangGlucose [Mass/Vol]101 mg/gRRpjgqf29-032OxzMarymount Hospital Comment on above:Performed By: #### BNP, CMP #### [facility] [address] [place] [address] Dr. Toshia JiangPotassium [Moles/Vol]3.8 mmol/LNormal3.5-5.1The [facility] Comment on above:Performed By: #### BNP, CMP #### [facility] [address] [place] [address] Dr. Toshia JiangProtein [Mass/Vol]6.7 g/dLNormal6.4-8.2[facility] Comment on above:Performed By: #### BNP, CMP #### [facility] [address] [place] [address] Dr. Toshia JiangSodium [Moles/Vol]140 mmol/KVjkirp948-262WnjMarymount Hospital Comment on above:Performed By: #### BNP, CMP #### [facility] [address] [place] [address] Dr. Toshia JaingUrea nitrogen [Mass/Vol]10.0 mg/dLNormal7.0-18.0[facility] HospitalComment on above:Performed By: #### BNP, CMP #### [facility] [address] [place] [address] Dr. Toshia Shahid nitrogen/Creatinine [Mass ratio]11.2 mg/mgNormalThe [facility] RehabilitationComment on above:Performed By: #### BNP, CMP #### [facility] [address] [place] [address] Dr. Toshia Jiang Vital Signs Date TimeVital SignValuePerforming IspqcdlafFaikpegc64-83-4777 15:14-040Body iirdtf128.56 cmMD Evaristo Tavares Work Phone: [facility]10-22-2024 15:14-0400 Body mass index (BMI) [Ratio]19.7 kg/m2MD Evaristo Tavares Work Phone: [facility]10-22-2024 15:14-0400 Body bppyzl49.16 kgMD Evaristo Tavares Work Phone: [facility]12-19-2022 16:00-0500 Body axjdcsdmnuc70 [degF]DO Tomás Keister Work Phone: [facility]12-19-2022 16:00-0500 Diastolic blood romvzksg30 mm[Hg]DO Tomás Keister Work Phone: [facility]12-19-2022 16:00-0500 Heart rate58 /minDO Tomás Keister Work Phone: [facility]12-19-2022 16:00-0500 Respiratory rate16 /minDO Tomás Keister Work Phone: [facility]12-19-2022 16:00-0500 SaO2% (BldA) [Mass fraction]95 %DO Tomás Keister Work Phone: [facility]12-19-2022 16:00-0500 Systolic blood mm[Hg]DO Tomás Keister Work Phone: [facility]12-19-2022 05:34-0500 Body hnbiwp20.3 kgDO Tomás Hoganister Work Phone: [facility]12-17-2022 20:37-0500 Diastolic blood mm[Hg]DO Tomás Keister Work Phone: [facility]12-17-2022 20:37-0500 Heart rate50 /minDO Tomás Keister Work Phone: [facility]12-17-2022 20:37-0500 Respiratory rate18 /minDO Tomás Keister Work Phone: [facility]12-17-2022 20:37-0500 SaO2% (BldA) [Mass fraction]95 %DO Tomás Keister Work Phone: [facility]12-17-2022 20:37-0500 Systolic blood qlksfuyc29 mm[Hg]DO Tomás Keister Work Phone: [facility]12-17-2022 14:40-0500 Body soipzo717.1 cmDO Tomás Roche Work Phone: [facility]12-17-2022 14:40-0500 Body vlonkc50.1 kgDO Tomás Roche Work Phone: [facility]12-17-2022 14:36-0500 Body [degF]DO Tomás Roche Work Phone: [facility] Encounters Encounter DateEncounter TypeCare ProviderFacilityStart: 92-62-8485gnocxxflsacarly KhannaFacility:[facility]ueStart: 73-74-4996bpzccqizjjFawhil L. Bobbs Facility:[facility])ueStart: 95-90-4881tdwbamssqsMmlx L SchwabFacility:[facility])ueStart: 77-48-8176ekcfaulodfXQFSMercy Health Clermont Hospitaltart: 04-10-2025 End: 20-47-1870aakikdrcxgLVOSMercy Health Clermont Hospitaltart: 48-65-9785kyegrwtldtAXEAYSheltering Arms Hospitaltart: 53-77-3135ldpttsbojsQUKHHMadison Healthtart: 52-88-3417ptrjrvheffINZCE UBTrinity Health System East Campustart: 46-77-6538cwufnfhefeXYVCMercy Health Clermont Hospitaltart: 12-25-2024 End: 23-14-6743ydhpkdizfxKFYYMercy Health Clermont Hospitaltart: 58-78-1325ctkjlapetfSXLWMercy Health Clermont Hospitaltart: 59-65-6390zirimjjnucPPEMMercy Health Clermont Hospitaltart: 10-03-2024 End: 80-41-1852nycnxuzzcxAHQTMercy Health Clermont Hospitaltart: 10-01-2024 End: 66-39-1595scxwaybbgkJwrjmb E. RossFacility:[facility])ueStart: 09-28-2024 End: 42-62-7873liqoydhqmbZCVNQF MOUKAHighland District Hospital Start: 51-89-5673wmvlooylbuYYNLPeoples Hospitaltart: 09-06-2024 End: 68-94-9191jnhwtdcrjkWpefse E. RossFacility:[facility])ueStart: 08-02-2024 ambulatoryMercy Health Clermont Hospitaltart: 07-31-2024 [facility] 07-26-2024 [facility]: 07-26-2024 Encounter for preprocedural cardiovascular examinationMercy Health Clermont Hospitaltart: 58-94-5197stdqidzzyeKRXPPeoples Hospitaltart: 15-08-0508tioxtyypqxEYVOPeoples Hospitaltart: 38-69-5788gplsqujkpzBQCMUC [facility] Start: 05-29-2024 End: 68-95-4006neybacaoahINRIJJH [facility] Hamiltontart: 90-89-4976lkkgdtscxfTOVYPeoples Hospitaltart: 05-15-2024 End: 30-41-7005spatijhlhbTW Kim E Knight Work Phone: [facility] Work Phone: Start: 05-15-2024 End: 69-08-4704Dtsjjun encounter procedureMD Evaristo Tavares Work Phone: [facility] Work Phone: start: 03-06-2024 End: 80-61-2683vzthtsjhncLF Kim E Knight Work Phone: [facility] Work Phone: Start: 03-06-2024 End: 15-18-7639Kpdfalb encounter procedureMD Evaristo Tavares Work Phone: [facility] Work Phone: Start: 03-06-2024 End: 70-14-1025Uqxxcwa encounter procedureMD Evaristo Tavares Work Phone: [facility] Start: 03-06-2024 End: 14-84-9757oevenshsxvTF Evaristo Tavares Work Phone: [facility] Work Phone: Start: 02-06-2024 End: 85-12-6536Mjniscy encounter procedureMD Evaristo Tavares Work Phone: [facility] Work Phone: Start: 02-06-2024 End: 95-55-0801ukuzqukrbwVK Kim E Tavares Work Phone: [facility] Work Phone: Start: 01-16-2024 End: 14-39-3603vpesulmlxjQU Kim E Tavares Work Phone: [facility] Work Phone: Start: 01-16-2024 End: 54-20-9168Sqnzkme encounter procedureMD Evaristo Tavares Work Phone: [facility] Work Phone: Start: 09-07-2023 End: 75-09-8269Unb Drop offTrupti Gipson Meg [facility] Start: 11-12-2022 End: 20-23-6787ssxirxextkVL KIM E KNIGHT .Facility:N4Qjwjp: 87-95-0563dgjhrhprzmcarly Ruiz IIFacility:9090Start: 84-41-4321bcxxaonvlxQvivcpr Patrick McGuinn IIFacility:9090Start: 2022 End: 51-30-2801Ysofelarnt and management of inpatientDO Tomás Roche Work Phone: [facility] SurgStart: 04-27-2022 End: 65-46-5037vlhmehpmnrFE MARSHAL MOUKARBELFacility:O5Mcpmt: 03-26-2022 ambulatoryDR MARSHAL MOUKARBELFacility:S9Itvbv: 03-23-2022 End: 47-11-2442xqngoxvnjnFZCNXFC TUCKERFacility:R7Luxuj: 03-03-2022 End: 39-41-5194nooqrxddiyAWLVIKQ TUERFacility:J2Myovz: 57-34-3431dwjpgrvqjg ABBY TUERFacility:W6Pmzqn: 12-31-2021 End: 39-57-2175uuuptmmnlkMR EVARISTO TAVARES .Facility:T8Lgkde: 12-29-2021 End: 42-55-9859xoeapawrdhRQDHTLL TUERFacility:H1 Procedures DateProcedureProcedure DetailPerforming ClinicianStart: 81-60-3291Znjcc X-ray of left shoulderMD Evaristo Tavares Work Phone: Start: 42-72-7214Tphqp X-ray of left elbowMD Evaristo Tavares Work Phone: Start: 74-39-3992Kqbes X-ray of left shoulderMD Evaristo Tavares Work Phone: Start: 86-29-5933Nldbp X-ray of left shoulderMD Evaristo Tavares Work Phone: Start: 24-66-9875Cypqfly ultrasonography of bilateral carotid arteriesDO Tomás Roche Work Phone: Start: 43-96-2795Uwyhr chest X-rayDO Tomás Roche Work Phone: Ankle region structure (body structure)Trupti Anhelo Comment on above:screw in right ankleCardiac catheterizationJodi Meg Cardiac pacemaker, device (physical object)Trupti Weaver Comment on above:2020H/O: vasectomyTrupti Weaver 305-6666JNWO-JvN-2, Influenza & RSV (PCR)DO Tomás Roche Work Phone: Tonsil and adenoid structure (body structure)Trupti Weaver Plan of Treatment DateCare ActivityDetailAuthorStart: 95-70-8564O-ray of cervical spineXR cerv spine AP/LAT/FLX/EXTMercy Health West Hospitaltart: 64-19-5922M-ray of lumbar spine, six views including bending viewsXR lumbar spine 6V w bending [facility]art: 07-79-2156F-ray of thoracic spine, three viewsXR thoracic spine 3V*[facility]tart: 43-83-9111OE Cervical spine 4 ViewsMercy Health West Hospitaltart: 35-19-3386FE Lumbar spine ViewsMercy Health West Hospitaltart: 55-80-3926WM Thoracic spine 3 ViewsMercy Health West Hospitaltart: 42-46-0220Ijxdtou referral [facility] Work Phone: Start: 24-84-2180Idfaq X-ray of left shoulderXR shoulder LT min 2V*[facility]tart: 63-47-9798NG Shoulder - left ViewsMercy Health West Hospitaltart: 14-61-3357Ltqea X-ray of left elbowXR elbow LT 2VMercy Health West Hospitaltart: 38-93-3138IV Elbow - left 2 ViewsMercy Health West Hospitaltart: 53-24-6118Jceoh X- ray of left shoulderXR shoulder LT min 2V*[facility] Start: 64-73-5555GT Shoulder - left ViewsMercy Health West Hospitaltart: 63-37-7669Ekhgj X-ray of left shoulderXR shoulder LT min 2V*[facility]: 46-10-3466QP Shoulder - left ViewsMercy Health West Hospitaltart: 22-66-4140Thexncid therapy procedureMercy Health West Hospitaltart: 78-04-2736Pzcyb chemistryMercy Health [facility] Center Start: 07-12-2022 End: 64-28-5206LqxvthavdMercy Health West Hospitaltart: 30-45-6151Beckt chemistry [facility]tart: 56-20-2216EjpsevwpfMercy Health West Hospitaltart: 27-54-7861Oedynliyac [Mass/volume] in UrineMercy Health West Hospitaltart: 67-26-5130Ohsyyv [Moles/volume] in UrineMercy Health West Hospitaltart: 19-98-8787Ofkodenw to cardiologistMercy Health West Hospitaltart: 65-00-3469Ilkloahc admissionMercy Health West Hospitaltart: 91-58-6579HdohuzveuMercy Health [facility] Medical CenterPatient EducationHeart Failure, Adult (DC)[facility] Work Phone: Patient referralRegency Hospital [facility]tr Work Phone: Immunizations Immunization DateImmunizationNotesCare MpncbvmyQncjolxf00-71-1185fulebd vaccine recombinantJodi Meg 756-0051Pouomj-DklwgMetrohealth [facility] 02-51-8202geybzhpxjpfz 20-valent conjugate vaccineJodi Meg 562-7712Holtcx-QiiphMetrohealth [facility] Center 70-72-2839tfrzjejxz, high dose seasonal, preservative-freeJodi Meg 045-7570Gpxvzp-IjixaMetrohealth [facility] Center 76-10-6318ktztltrqu, high dose seasonal, preservative-freeJodi Meg 864-2838Ixeyfj-GxvwaMetrohealth [facility] Center Comment on above:Early/Late Reason: Early/Late Reason: Other : patient was given this on 03/29/23 it needed entered as I forgot to do it on visit mzh76-22-0699bvuakvydy virus vaccine, unspecified formulationJodi Meg 185-2292Evvhnr-UmtgjMetrohealth [facility] Center 44-56-6599ZQOP-CoV-2 (COVID-19) mRNAMUL.ORD!s98651Sylo Meg 083-7375Vonnam-KsqcrMetrohealth [facility] Center 16-96-9421KZHB-CoV-2 (COVID-19) mRNA-1273 vaccineJodi Meg 049-5803Rzurts-LeyulMetrohealth [facility] Center Comment on above:Result Comment: 2023-03-29: EIV0040-13-8318jclznegzl virus vaccine, unspecified formulationJodi Meg 681-6178Unuqpa-VfgyxMetrohealth [facility] Center 28-78-5658UDBC-CoV-2 (COVID-19) Ad26 vaccine, recombinantJodi Meg 170-5918Afvjcl-YzefmMetrohealth [facility] Comment on above:Result Comment: 2023-03-29: [id number] Payers DatePayer CategoryPayerPolicy [id number] [id number] [id number] 1960 Private Health [id number] [id number]-uknx5g4d312t06-63-3107Oitjdoc [id number] 2.0.1.429970.3.57[id number] 2.840.1.520065.3.57[id number] 2.0.1.915961.3.57[id number] 2.16.840.1.244061.3.579.[id number] 2.16.840.1.317246.3.579.2.39778-24-2227Vqckxee2507849 2.16.840.1.819061.3.579.2.89900-31-0088Vznbhxd6640018 2.16.840.1.841853.3.579.2.25919-13-9759Tofghxh1724413 2.16.840.1.377185.3.579.[id number] 2.16.840.1.895029.3.579.2.79223-06-0693Nsmdcrl4861103 2.16.840.1.332074.3.57[id number] 2.16.840.1.727995.3.57[id number] 2.16.840.1.148717.3.579.[id number] 2.16.840.1.074623.3.57[id number] 2.16.840.1.132650.3.579.[id number] 2.16.840.1.661981.3.579.2.30263-27-5805Zggicep47105189 2.16.840.1.457729.3.579.2.[id number] 2.16.840.1.104603.3.579.[id number] 2.16.840.1.62[id number] b1qabt75-68a6-5t3e-9s4a-15gvoat61h81OaghghtNNXG/HFA/FAP [id number] 6vco0q05-60rq-0w59-w677-[id number] 2.16.840.1.062951.3.579.2.652Smwrxcn91972154 2.16.840.1.306371.3.579.2.531 [id number] 2.16.840.1.872789.3.579.2.531 Social History DateTypeDetailFacilityStart: 2022 End: 55-12-0327Uzvnwcz smoking status NHISSmoker (finding)[facility]: 52-90-0757Fui [facility]igned [facility]: 76-94-7484Kjyyrxk smoking statusHeavy tobacco smoker (finding)[facility] smoking statusNeOhioHealth Grove City Methodist Hospitaltart: 07-25-1970 Sex Assigned At [facility] Medical Equipment Procedure CodeEquipment CodeEquipment Original TextEquipment IdentifierDates Insertion, pacemakerEndocardial pacing lead ()[id number] FDAStart: 60-35-9802Kafezezdc, pacemakerEndocardial defibrillation lead ()[id number])904468([id number] FDAStart: 14-88-7128Cqtepzqqz, pacemakerDual-chamber implantable defibrillator ()[id number])[id number] FDAStart: 04-02-2020 Goals DatePatient GoalDesired Activity/State Functional Status EjsaDsdcfyzgarRkbardYocyejxu65-60-5826Zclhvbbvlz statusPatient at Baseline [facility] Work Phone: Mental Status YgsoXiouxdgrdfClgwktMcvucfrd33-48-8780Ptnxveoce functionCognitive Status Patient at BaselineReg[facility] Work Phone: Clinical Notes 2022 to 04-18-2025 Note Date & ThmyJtkzNavgpfps44-13-5514 NotePatient's VM box is full, and emergency contact number is out of service. Will send patient a

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
--- OUTSIDE RECORDS SUMMARY | 2025-05-18 09:39 | XMS_ITS | Encounter Summary ---
Author Organization [facility] Address [address] [place] [address] Care Team Providers Care Salesperson Hosiery Name Role Phone Trupti Weaver GROUNDS RESTORATION SPECIALIST-C Primary Care Provider [phone] Reason for Referral * Imaging (Routine) - Pending ReviewSpecialtyDiagnoses / ProceduresReferred By ContactReferred To ContactCardiology Diagnoses Cardiomyopathy, ischemic Procedures Transthoracic echo (TTE) complete Jared Mcdaniel MD [address] [place] [address] Phone: tel: fax: Referral IDStatusReasonStart DateExpiration DateVisits RequestedVisits [id number] Review Perform Procedure Encounter Details DateTypeDepartmentCare Team (Latest Contact Info)Bwpinwkpzma43/21/2025Orders Only [facility] Heart at [facility] [address] [place] [address] Madyson Moscoso MA Cardiomyopathy, ischemic (Primary Dx) Social History Tobacco UseTypesPacks/DayYears UsedDateSmoking Tobacco: Every DayCigarettes Smokeless Tobacco: Current Comments:Vape 2 times Alcohol UseStandard Drinks/WeekCommentsNot Currently0 (1 standard drink = 0.6 oz pure alcohol)[facility] UtilitiesAnswerDate RecordedIn the past 12 months [...] a week 11/24/2023How often do you attend mandaen or christianity services?Never11/24/2023o you belong to any clubs or organizations such as mandaen groups, unions, fraternal or athletic groups, or school groups?No11/24/2023How often do you attend meetings of the clubs or organizations you belong to?Never11/24/2023re you , , , , never , or living with a partner?Wsxbbovb31/02/2024UDIT-CAnswerDate RecordedQ1: How often do you have a [...] housing, medical care, and heating?Not hard at all11/24/2023[facility] [place] of Occupational Health - Occupational Stress QuestionnaireAnswerDate RecordedDo you feel stress - tense, restless, nervous, or anxious, or unable to sleep at night because yourmind is troubled all the time - these days?Only a olsrmh2511/24/2023TransportationAnswer Date RecordedIn the past 12 months, has [...] not to disclose 02/28/2025 9:12 PM EDTLegal HbdRnay7301/21/2022 12:31 AM EDTGender IdentityChoose not to qlvqmlug13/07/2025 9:12 PM EDTSexual OrientationChoose not to disclose 02/28/2025 9:12 PM EDTdocumented as of this encounter Plan of Treatment DateTypeDepartmentCare Team (Latest Contact Info)Xoxrqyshrjw26/12/2025 2:00 PM ESTOffice Visit [facility] at [facility] [address] [place] [address] Filemon Miller MD [address] [facility] [address] [facility] [place] [address] NameTypePriorityAssociated DiagnosesOrder ScheduleTransthoracic echo (TTE) completeEchocardiographyRoutine Cardiomyopathy, ischemic Expected: 05/14/2025 (Approximate), Expires: 05/14/2027documented as of this encounter Visit Diagnoses Diagnosis Cardiomyopathy, ischemic- Primary Other specified forms of chronic ischemic heart disease documented in this encounter Care Teams Team MemberRelationshipSpecialtyStart DateEnd Date Trupti Weaver FNP-C [address] [place] [address] PCP - GeneralNurse Jgjcnogepqah77/21/25documented as of this encounter
--- OUTSIDE RECORDS SUMMARY | 2025-05-18 09:39 | XMS_ITS | Encounter Summary ---
Author Organization [facility] Address [address] [place] [address] Care Team Providers Care Yarn Sorter Name Role Phone Trupti Weaver DINING ROOM CAPTAIN-C Primary Care Provider [phone] Encounter Details DateTypeDepartmentCare Team (Latest Contact Info)Uclwnfmgbrp85/21/2025Telephone [facility] Heart at [facility] [address] [place] [address] Madyson Moscoso MA Social History Tobacco UseTypesPacks/DayYears UsedDateSmoking Tobacco: Every DayCigarettes Smokeless Tobacco: Current Comments:Vape 2 times Alcohol UseStandard Drinks/WeekCommentsNot Currently0 (1 standard drink = 0.6 oz pure alcohol)[facility] UtilitiesAnswerDate RecordedIn the past 12 months has the [employer], gas, oil, or water [employer] threatened to shut off services in your [...] 11/24/2023How often do you attend mandaen or mosque services?Never11/24/2023o you belong to any clubs or organizations such as mandaen groups, unions, fraternal or athletic groups, or school groups?No11/24/2023How often do you attend meetings of the clubs or organizations you belong to?Never11/24/2023re you , , , , never , or living with a partner?Cfdovmpt39/02/2024UDIT-CAnswerDate RecordedQ1: How often do you have a [...] housing, medical care, and heating?Not hard at all11/24/2023[facility] [place] of Occupational Health - Occupational Stress QuestionnaireAnswerDate RecordedDo you feel stress - tense, restless, nervous, or anxious, or unable to sleep at night because yourmind is troubled all the time - these days?Only a bqzrnw5111/24/2023TransportationAnswer Date RecordedIn the past 12 months, has [...] not to disclose 02/28/2025 9:12 PM EDTLegal EqiDdos0001/21/2022 12:31 AM EDTGender IdentityChoose not to raisvnoq36/07/2025 9:12 PM EDTSexual OrientationChoose not to disclose [...] Plan of Treatment DateTypeDepartmentCare Team (Latest Contact Info)Uxnsgrhthcw22/12/2025 2:00 PM ESTOffice Visit [facility] Heart at [address] [address] Filemon Miller MD [address] [facility] [address] [place] [address] documented as of this encounter Visit Diagnoses Not on filedocumented in this encounter Care Teams Team MemberRelationshipSpecialtyStart DateEnd Date Trupti Weaver FNP-C [address] [place] [id number] PCP - GeneralNurse Ylpjmzguyany73/21/25documented as of this encounter
--- OUTSIDE RECORDS SUMMARY | 2025-05-18 09:39 | XMS_ITS | Clinical Summary ---
Author Organization [facility] Address [address] [place] [address] Care Team Providers Care Fire Sprinkler Apparatus Inspector Name Role Phone Unavailable Primary Care Provider Unavailabl e Social History Tobacco UseTypesPacks/DayYears UsedDateSmoking Tobacco: Never AssessedSex and Gender InformationValueDate RecordedSex Assigned at BirthNot on fileLegal Sex Male12/15/2023 9:41 AM EDTGender IdentityNot on fileSexual OrientationNot on file Plan of Treatment Not on file Insurance * Guarantor: Dung LunaAccount TypeRelation to PatientDate of BirthPhone Billing AddressPersonal/LcrnqyXarw1950 [address] [address]
--- OUTSIDE RECORDS SUMMARY | 2025-05-18 09:39 | XMS_ITS | Encounter Summary ---
Author Organization [facility] Address [address] [place] [address] Care Team Providers Care Palletizer Name Role Phone Roldan Khanna MD Primary Care Provider [phone] Trupti Weaver Primary Care Provider [phone] Reason for Visit * ReasonOnset DateCommentsPatient Assistance Miggtwr4204/22/2025 Encounter Details DateTypeDepartmentCare Team (Latest Contact Info)Xbmtqjvxvdi78/29/2025Telephone [facility] [address] [place] [address] Nika Lomas Patient Assistance Program Social History Tobacco UseTypesPacks/DayYears UsedDateSmoking Tobacco: Every DayCigarettes Smokeless Tobacco: Current Comments:Vape 2 times Alcohol UseStandard Drinks/WeekCommentsNot Currently0 (1 standard drink = 0.6 oz pure alcohol)[facility] UtilitiesAnswerDate RecordedIn the past 12 months has the [employer], gas, oil, or water [employer] threatened to shut off services in your [...] a week 11/24/2023How often do you attend baptism or episcopalian services?Never11/24/2023o you belong to any clubs or organizations such as baptism groups, unions, fraUpper [employer]ust Pizza or athletic groups, or school groups?No11/24/2023How often do you attend meetings of the clubs or organizations you belong to?Never11/24/2023re you , , , , never , or living with a partner?Cwtegmjz31/02/2024UDIT-CAnswerDate RecordedQ1: How often do you have a [...] housing, medical care, and heating?Not hard at all11/24/2023[facility] [place] of Occupational Health - Occupational Stress QuestionnaireAnswerDate RecordedDo you feel stress - tense, restless, nervous, or anxious, or unable to sleep at night because yourmind is troubled all the time - these days?Only a cxzmyo4611/24/2023TransportationAnswer Date RecordedIn the past 12 months, has [...] not to disclose 02/28/2025 9:12 PM EDTLegal GelUvhg4401/21/2022 12:31 AM EDTGender IdentityChoose not to sshzahtj53/07/2025 9:12 PM EDTSexual OrientationChoose not to disclose 02/28/2025 9:12 PM EDTdocumented as of this encounter Miscellaneous Notes * Telephone Encounter - Nika Lomas - 05/15/2025 11:41 AM EDT Tried calling patient and daughter and both phone numbers are not operating. Called [place] to see if patient stopped by to [...] are ready for patient to sign at [facility]. Madyson is aware that a message was left Tuesday afternoon to inform patient. Attempted to call patient with no success this morning and has a full voicemail. Patient's alternate contact's phone number is no longer in service. has completed his paperwork as well & is ready to fax. documented in this encounter Plan of Treatment DateTypeDepartmentCare Team (Latest Contact Info)Rjxkvnowhpf10/12/2025 2:00 PM ESTOffice Visit [facility] Heart at [facility] [address] [place] [address] Filemon Miller MD [address] [facility] [place] [address] documented as of this encounter Visit Diagnoses Not on filedocumented in this encounter Care Teams Team MemberRelationshipSpecialtyStart DateEnd Date Roldan Khanna MD [address] [place] [address] PCP - GeneralFamily Medicine01/26/2310 Trupti Weaver FNP-C [address] [place] [address] PCP - GeneralNurse Zuxpdsyuloxh85/21/25documented as of this encounter
--- OUTSIDE RECORDS SUMMARY | 2025-05-18 09:39 | XMS_ITS | Clinical Summary ---
Author Organization [facility] Address [address] [place] [address] Phone Care Team Providers Care Kelp Or Seagrass Gatherer Name Role Phone Unavailable Primary Care Provider Unavailabl e Social History Tobacco UseTypesPacks/DayYears UsedDateSmoking Tobacco: Never AssessedSex and Gender InformationValueDate RecordedSex Assigned at BirthNot on fileLegal Sex Male06/19/2022 2:53 PM ESTGender IdentityNot on fileSexual OrientationNot on file Plan of Treatment Health MaintenanceDue DateLast DoneCommentsCT Phnygxudbmyo1951olonoscopy 1951olorectal Cancer Mmuaiyktc1951FIT-DNA (Cologuard)1950FIT 1Lipid Panel1950 1251Xltacqtotfexr1951Yearly Adult Physical 1950MMR Vaccines (1 of 1 [...]
--- OUTSIDE RECORDS SUMMARY | 2025-05-18 09:40 | XMS_ITS | Patient Health Record ---
Author Organization [employer] [facility] Address [address] [place] [address] Care Team Providers Care Campus Safety Officer Name Role Phone XXPauline Lassiter Primary Care [...] & 1 MG X 42 Tabletas directed Bxfbqk6612/19/2015ActiveLipitor 80 MG Tablet1 tablet Orally Once a [...] Status W/U Status Risk Notes Problem Hyperlipidemia (44172085) Hyperlipidemia (E78.5) ActiveconfirmedProblemHypertension (94568139)Hypertension (I10)Activeconfirmed ProblemTobacco abuse (2471271239)Tobacco abuse (Z72.0)ActiveconfirmedProblem Myocardial infarction (08404990)Myocardial infarction (I21.3)Activeconfirmed Plan Of Treatment No Information Insurance Providers Payer Name Payer Address Payer Phone Subscriber Number Group Number Insured Name Patient Relationship to Insured Coverage Start Date Coverage End Date [place] [address] [place] [address] [id number] ELENA COFFMANelf - patient is the insured Medical (General) History Medical History History ICD Code X2 [place] High CholesterolHypertensionMISurgical History Surgery Date(Month/Year) 4 stents neck platebroken ankle 2 screwsbroken tibia in 2 placesLt thigh gashhip bone in tqkaKlmgj42/2016Hospitalization History Reason Date(Month/Year) [place] 10/2015
--- OUTSIDE RECORDS SUMMARY | 2025-05-18 09:40 | XMS_ITS | Patient Health Record ---
Author Organization [facility] [place] Address [address] [place] [address] Care Team Providers Care Loom Changeover Operator Name Role Phone Roldan Khanna MD Primary Care Provider Unavailabl e Reason For Referral No Information Plan Of Treatment No Information Insurance Providers Payer Name Payer Address Payer Phone Subscriber Number Group Number Insured Name Patient Relationship to Insured Coverage Start Date Coverage End Date [employer] [address] [place] [id number] Nhi Estradaelf - patient is the insured
[2025-05-18 09:49] LABS: Hematocrit 41.2 % (42.0-54.0); Hemoglobin 13.2 g/dL (14.0-18.0); Immature Granulocytes Abs Auto 0.02 10^3/uL (0.00-0.03); Immature Granulocytes Pct Auto 0.3 % (0.0-0.5); Lymphocytes Absolute Auto 2.2 10^3/uL (1.2-3.8); Mean Corpuscular HGB Conc 32.0 g/dL (29.9-35.2); Mean Corpuscular Hemoglobin 34.9 pg (25.9-34.0); Mean Corpuscular Volume 109.0 fL (80.0-94.0); Platelet Count 156 10^3/uL (150-450); Red Blood Count 3.78 10^6/uL (4.70-6.10); White Blood Count 6.6 10^3/uL (4.0-11.0)
[2025-05-18 10:36] LABS: Alanine Aminotransferase 36 U/L (16-63); Albumin Globulin Ratio 1.1; Albumin Level 3.7 g/dL (3.4-5.0); Alkaline Phosphatase 60 U/L (46-116); Anion Gap 10.8; Aspartate Amino Transferase 25 U/L (15-37); Blood Urea Nitrogen 12.0 mg/dL (7.0-18.0); Calcium 8.6 mg/dL (8.5-10.1); Carbon Dioxide 30.2 mmol/L (21.0-32.0); Chloride 104 mmol/L (98-107); Cholesterol 171 mg/dL (<=200); Estimated GFR (African America >60 (>=60 mL/min/1.73m^2); Estimated GFR (Non-African Ame >60 (>=60 mL/min/1.73m^2); Globulin 3.4 g/dL; Glucose 94 mg/dL (74-106); HDL Cholesterol 104 mg/dL (40-60); Potassium 4.0 mmol/L (3.5-5.1); Sodium 141 mmol/L (136-145); TSH W/ REFLEX FT4 1.008 uIU/mL (0.358-3.740); Total Protein 7.1 g/dL (6.4-8.2); Triglycerides 85 mg/dL (<=150); VLDL CHOLESTEROL 17.0 mg/dL
== END 2025-05-18 09:36 | disposition home or self-care (01) ==
LOC: LAB 09:36
PROVIDERS: PCP Nurse Practitioner; Visit Provider Nurse Practitioner
DX: R63.4 Abnormal weight loss (principal); I10 Essential (primary) hypertension; E78.5 Hyperlipidemia, unspecified; Z12.5 Encounter for screening for malignant neoplasm of prostate; Z13.0 Encounter for screening for diseases of the blood and blood-forming organs and certain disorders involving the immune mechanism; Z13.29 Encounter for screening for other suspected endocrine disorder
CPT/HCPCS: 36415; 80053; 80061; 84443; 85025; G0103

== ENCOUNTER 2025-06-05 13:51 | Outpatient (RCR) | payer OTHER, SELFPAY | END 2025-06-23 23:59 | disposition home or self-care (01) | LOC: MM 13:51 | PROVIDERS: PCP Nurse Practitioner; Visit Provider Nurse Practitioner | DX: Z51.81 Encounter for therapeutic drug level monitoring (principal); Z79.01 Long term (current) use of anticoagulants; I48.0 Paroxysmal atrial fibrillation | CPT/HCPCS: 85610; G0463 ==

== ENCOUNTER 2025-06-24 09:42 | Outpatient (RCR) | payer OTHER, SELFPAY | END 2025-07-24 13:18 | disposition home or self-care (01) | LOC: MM 09:42 | PROVIDERS: PCP Nurse Practitioner; Visit Provider Nurse Practitioner | DX: Z51.81 Encounter for therapeutic drug level monitoring (principal); Z79.01 Long term (current) use of anticoagulants; I48.0 Paroxysmal atrial fibrillation | CPT/HCPCS: 85610; G0463 ==

== ENCOUNTER 2025-06-28 13:25 | Outpatient (OUT) | payer OTHER, SELFPAY ==
--- OUTSIDE RECORDS SUMMARY | 2024-03-13 09:00 | XMS_ITS ---
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 * Medical History: Objective: * Vitals: Assessment: Plan: * Treatment: * * Electronic signature of Joel Galdamez DO on 06/28/2025 at 01:29 PM ESTSign off status: PendingVisit Status:?CANC (Cancelled) * Provider: Dez Galdamez DO Date: 0 03/13/2024 Generated for Printing/Faxing/eTransmitting on:?06/28/2025 01:29 PM EST
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
--- OUTSIDE RECORDS SUMMARY | 2025-06-28 13:29 | XMS_ITS | Clinical Summary ---
Author Organization [facility] Address [address] [address] Phone Care Team Providers Care Investment Broker Name Role Phone Unavailable Primary Care Provider Unavailabl e Social History Tobacco UseTypesPacks/DayYears UsedDateSmoking Tobacco: Never AssessedSex and Gender InformationValueDate RecordedSex Assigned at BirthNot on fileLegal Sex Male06/19/2022 2:53 PM ESTGender IdentityNot on fileSexual OrientationNot on file Plan of Treatment Health MaintenanceDue DateLast DoneCommentsCT Hnfhahofwsao1950olonoscopy 1950olorectal Cancer Rsrqsusgh1951FIT-DNA (Cologuard)1950FIT 1Lipid Panel1950 1538Qqxmkcmmqoxnl1950Yearly Adult Physical 1950MMR Vaccines (1 of 1 [...]
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
--- OUTSIDE RECORDS SUMMARY | 2025-06-28 13:29 | XMS_ITS | Encounter Summary ---
Author Organization [facility] Address [address] [place] [address] Care Team Providers Care Medical Assembler Name Role Phone Trupti Weaver BUSINESS DEVELOPER-C Primary Care Provider [phone] Reason for Referral * Consultation (Routine) - Pending ReviewSpecialtyDiagnoses / ProceduresReferred By ContactReferred To ContactAnticoagulation Diagnoses Apical mural thrombus Procedures [place] OFFICE/OUTPATIENT [facility] 60 MINUTES Filemon Miller MD [address] [facility] [address] [facility] [place] [address] Phone: tel: fax: [facility] ANTICO[facility]ULATION [address] [place] [address] Phone: tel: fax: Referral IDStatusReasonStart DateExpiration DateVisits RequestedVisits [id number] Review Specialty Services Required Encounter Details DateTypeDepartmentCare Team (Latest Contact Info)Fkbfiiqoiif75/26/2025Orders Only [facility] [address] [place] [address] Giana Miles MA Apical mural thrombus (Primary Dx) Social History Tobacco UseTypesPacks/DayYears UsedDateSmoking Tobacco: Every DayCigarettes Smokeless Tobacco: Current Comments:Vape 2 times Alcohol UseStandard Drinks/WeekCommentsNot Currently0 (1 standard drink = 0.6 oz pure alcohol)[facility] UtilitiesAnswerDate RecordedIn the past 12 months has [...] times a week11/24/2023How often do you attend oriental orthodox or hindu services?Never11/24/2023o you belong to any clubs or organizations such as oriental orthodox groups, unions, fraternal or athletic groups, or school groups?No11/24/2023How often do you attend meetings of the clubs or organizations you belong to?Never11/24/2023re you , , , , never , or living with a partner?Dxemslgj96/02/2024 AUDIT-CAnswerDate RecordedQ1: How often do you have [...] medical care, and heating?Not hard at all 11/24/2023[facility] [place] of Occupational Health - Occupational Stress QuestionnaireAnswerDate RecordedDo you feel stress - tense, restless, nervous, or anxious, or unable to sleep at night because yourmind is troubled all the time - these days?Only a einmem5411/24/2023UT Safety & EnvironmentAnswerDate RecordedWithin the last year, [...] InformationValueDate RecordedSex Assigned at BirthNot on fileLegal VcxRkrg7701/21/2022 12:31 AM EDTGender Identity Choose not to yjcrrrct34/07/2025 9:12 PM EDTSexual OrientationChoose not to asnzlblp01/07/2025 9:12 PM EDTdocumented as of this encounter Plan of Treatment DateTypeDepartmentCare Team (Latest Contact Info)Kpimmifykmq66/12/2025 2:00 PM ESTOffice Visit [facility] [address] [place] [address] Filemon Miller MD [address] [facility] [address] [place] [address] NameTypePriorityAssociated DiagnosesOrder ScheduleAmbulatory referral to Anticoagulation - Warfarin MonitoringOutpatient ReferralRoutine Apical mural thrombus Ordered: 06/19/2025documented as of this encounter Visit Diagnoses Diagnosis Apical mural thrombus- Primary documented in this encounter Care Teams Team MemberRelationshipSpecialtyStart DateEnd Date Trupti Weaver FNP-C [address] [place] [address] PCP - GeneralNurse Jxgdgeuihpfq57/21/25documented as of this encounter
--- OUTSIDE RECORDS SUMMARY | 2025-06-28 13:29 | XMS_ITS | Clinical Summary ---
Author Organization [facility] Address [address] [place] [address], [address] [place] [address] Care Team Providers Care Pier Worker Name Role Phone Unavailable Primary Care Provider Unavailabl e Social History Tobacco UseTypesPacks/DayYears UsedDateSmoking Tobacco: Never AssessedSex and Gender InformationValueDate RecordedSex Assigned at BirthNot on fileLegal Sex Male09/05/2012 11:01 PM ESTGender IdentityNot on fileSexual OrientationNot on file Plan of Treatment Not on file
--- OUTSIDE RECORDS SUMMARY | 2025-06-28 13:29 | XMS_ITS | Clinical Summary ---
Author Organization [facility] Address [address] [place] [address] Care Team Providers Care Fiber Optics Supervisor Name Role Phone Unavailable Primary Care Provider Unavailabl e Social History Tobacco UseTypesPacks/DayYears UsedDateSmoking Tobacco: Never AssessedSex and Gender InformationValueDate RecordedSex Assigned at BirthNot on fileLegal Sex Male12/15/2023 9:41 AM EDTGender IdentityNot on fileSexual OrientationNot on file Plan of Treatment Not on file Insurance * Guarantor: Dung LunaAccount TypeRelation to PatientDate of BirthPhone Billing AddressPersonal/PtibqjJmgt1950 [address] [address]
--- OUTSIDE RECORDS SUMMARY | 2025-06-28 13:30 | XMS_ITS | CCD ---
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 [facility]36on Regarding lab results from 10/26/2024: MD Madyson Azevedo MA His blood test was good. Patient made aware. Still awaiting word from Dr. Miller regarding echo result. I scheduled patient for apt with Dr. Mcdaniel s/p recent device interrogation.[facility]36on Regarding lab results from 10/12/2024: MD Madyson Azevedo MA Renal function normal, continue same, obtain the echo and see me as planned. Patient made aware. I transferred him to scheduling so he could schedule the echo.[facility]hillAmbulatory Visit Summaryon 26-51-0375Ajsfpchghg Visit SummaryAmbulatory Visit Summary DUNG COFFMAN :1950 [...] PM EDT With: Roldan Khanna MD Where: [address] [phone] [id number] 1:00 PM EDT With: Where: [address] [address]- You Need to Complete the Following CT Chest, Low Dose Screening, 10/01/24, Routine, Order for future visit, Transport Mode: Ambulatory, Reason: Screening, Yes, Yes, Yes, 1, 50, Yes, 0, [id number], No, COPD without exacerbation Chronic systolic congestive [...] you for choosing us for your care. [facility] Medicine Office/Clinic Noteon 52-76-2423Yxestq Medicine Office/Clinic NoteFawesson memorial hospital Medicine Office/Clinic Note Chief Complaint Subsequent Medicare [...] Precautions for MERS/COVID-19 : N/A Malika Gooden - 10/01/2024 14:42 EDT Medicare/Medicaid Summary Numeric Rating [...] confident Difficulties driving your (more content not included)...[facility] MD, Cancer CenterComment on above:Result Comment: Electronically Signed By: Roldan Khanna MD\.br\Date and Time Signed: 10/11/24 08:36 EDT\.br\Electronically Co-Signed By: Malika Gooden\.br\Date and Time Co-Signed: 10/01/24 15:48 EDT Ambulatory Visit Summaryon 43-32-7125Ejkefluqij Visit SummaryAmbulatory Visit Summary DUNG COFFMAN :1950 [...] Appointments Tuesday 2:30 PM EDT With: Where: [address] [address]- 2024 1:40 PM EDT With: Jey LANGSTON, Roldan Talbert Where: [address] [address]- You Need to Complete the Following CT Chest, Low Dose Screening, 10/01/24, Routine, Order for future visit, Transport Mode: Ambulatory, Reason: Screening, Yes, Yes, Yes, 1, 50, Yes, 0, [id number], No, COPD without exacerbation Chronic systolic congestive [...] you for choosing us for your care. [facility] Medicine Office/Clinic Noteon 71-41-8124[facility] Medicine Office/Clinic NoteBelchertown State School For The [facility]eeble-[facility] Medicine Office/Clinic Note Chief Complaint 1m follow up The patient presents for follow-up management of hypertensive heart disease with congestive heart failure, COPD, and smoking cessation. HPI Staff 3m follow up Patient is here for follow up on COPD: Feeling controlled on medication: Need medication refilled: Do you use O2? no Low Dose CT ordered at [facility]- not done. Looks like DX code [...] continuing to monitor blood pressure. Ongoing regular metal melter reviews remain essential for adjustment of therapeutic [...] management continues in tandem with hypertension therapy. Supervisor Decorating evaluations remain critical for optimal care. Ordered: [...] maintaining planned follow-ups and monitoring with a metal melter due to persi stent hypertension. We addressed the upcoming (more content not included)... [facility], MD, Cancer CenterComment on above:Result Comment: Electronically Signed By: Jey LANGSTON, Roldan Wilson.shakeel\Date and Time Signed: 10/01/24 14:45 EDTOffice Visiton 59-17-4125Yxojtm-up [id number] Dung Coffman 1950 M Date Provider Department Center 09/28/2024 RandellMARSHAL MILLER [facility] Family History Problem Relation Age of Onset No Known Problems Mother No Known Problems Father Family Status - Relation Status Age at Mother Father Level of Service:91394 DC OFFICE/OUTPATIENT ESTABLISHED MOD MDM 30 [facility] ClinicXR shoulder LT min 2V*on 98-68-2191WK shoulder LT min 2V*[facility] [address] [place] [address] XRay Report Signed Patient: Dung Coffman MR#: [id number] : 1950 Acct:[id number] Age/Sex: 73 / M ADM Date: 03/06/24 Loc: [facility] [place] Room: Type: [facility] Attending Dr: Marjorie VALERIOC Copies to: CURRY [...] Yan Greenberg M.D.03/06/2024 4:16 PM Dictation Location: [place] [address] Transcribed By: AIDAN 03/06/24 1616 Dictated By: Yan Greenberg DO 03/06/24 1616 Signed By: 03/06/24 1616[facility] Physician GroupXR elbow LT 2Von 97-79-6132KK elbow LT [facility] [address] [place] [address] XRay Report Signed Patient: Dung Coffman MR#: [id number] : 1950 Acct:[id number] Age/Sex: 73 / M ADM Date: 02/06/24 [place] [facility] [place] [facility]: Marjorie Castro FORESTRY CONSULTANT-C Copies to: CURRY Cardoza Ordering Provider: CURRY [...] Yan Greenberg M.D.02/06/2024 5:38 PM Dictation Location: [place] [address] Transcribed By: [facility] 02/06/24 1738 Dictated By: Yan Greenberg DO 02/06/24 1736 Signed By: 02/06/24 1738[facility] Physician GroupXR shoulder LT min 2V*on 74-28-7625SQ shoulder LT min 2V*[facility] [address] XRay Report Signed Patient: Dung Coffman MR#: [id number] : 1950 Acct:[id number] Age/Sex: 73 / M ADM Date: 02/06/24 Loc: [facility] [place] Room: Type: REG CLI Attending Dr: Marjorie VALERIOC Copies to: CURRY [...] Henry Sanchez M.D.02/06/2024 5:34 PM Dictation Location: [place] [address] Transcribed By: [facility] 02/06/24 173 Dictated By: Henry Sanchez II, MD 02/06/24 173 Signed By: 02/06/24 1734[facility] Physician GroupXR shoulder LT min 2V*on 36-63-8392XG shoulder LT min 2V*[facility] [address] [place] [address] XRay Report Signed Patient: Dung Coffman MR#: [id number] : 1950 Acct:[id number] Age/Sex: 73 / M ADM Date: 01/16/24 Loc: [facility] [place] Room: Type: [facility] CLI Attending Dr: Marjorie VALERIOC Copies to: CURRY [...] Impression dictated by: J Carlos Coelho Jr., DRaffy01/16/2024 2:48 PM Dictation Location: [place] [address] Transcribed By: [facility] 01/16/24 1448 Dictated By: J Carlos Coelho Jr, DO 01/16/24 144 Signed By: 01/16/24 1448[facility] Physician GroupCBC AUTO DIFFon 37-49-1669CUER # 0.0 103/ulNormal0.0-0.1The [facility] HospitalComment on above:Performed By: #### CBC #### [facility] [address] [place] [address] [address] Toshia JiangBasophils/100 WBC (Bld)0.2 %Normal0.2-2.0[facility] Comment on above:Performed By: #### CBC #### [facility] [address] [place] [address] [address] Toshia Pang #0.0 103/ulNormal0.0-0.7The [facility] HospitalComment on above: Performed By: #### CBC #### [facility] [address] [place] [address] [address] Toshia Ledezmaosinophils/100 WBC (Bld)0.1 %Critically low0.9-7.0The [facility] HospitalComment on above:Performed By: #### CBC #### [facility] [address] [place] [address] [address] Toshia Ledezmarythrocyte distribution width (RBC) [Ratio]14.9 %Rjprsk46.0-15.0 The [facility] HospitalComment on above:Performed By: #### CBC #### [facility] [address] [place] [address] [address] Toshia JiangHematocrit (Bld) [Volume fraction]40.2 %Critically low42.0-54.0 The [facility] HospitalComment on above:Performed By: #### CBC #### [facility] [address] [place] [address] Dr. Toshia JiangHemoglobin (Bld) [Mass/Vol]13.1 g/dLCritically low14.0-18.0The Ranger HospitalComment on above:Performed By: #### CBC #### [facility] [address] [place] [address] Dr. Toshia Gomez #0.04 10e3/ulCritically high0.00-0.03[facility] Comment on above:Performed By: #### CBC #### [facility] [address] [place] [address] Dr. Toshia Gomez %0.4 %Normal0.0-0.5The [facility] HospitalComment on above: Performed By: #### CBC #### [facility] [address] [place] [address] Dr. Toshia Coronado #1.6 103/ulNormal1.2-3.8The [facility] HospitalComment on above:Performed By: #### CBC #### [facility] [address] [place] [address] Dr. Toshia Smithhocytes/100 WBC (Bld)17.9 %Critically low20.5-60.0The [facility] HospitalComment on above:Performed By: #### CBC #### [facility] [address] [place] [address] Dr. Toshia KolbUAL DIFF REQNONormalThe [facility] HospitalComment on above: Performed By: #### CBC #### [facility] [address] [place] [address] Dr. Toshia Stoner (RBC) [Entitic mass]33.1 hxRyezxs92.9-34.0The [facility] HospitalComment on above:Performed By: #### CBC #### [facility] [address] [place] [address] [address] Toshia RiveraHC (RBC) [Mass/Vol]32.6 g/mDMptgbs68.9-35.2The [facility] HospitalComment on above:Performed By: #### CBC #### [facility] [address] [place] [address] [address] Toshia RiveraV (RBC) [Entitic vol]101.5 fLCritically high80.0-94.0The [facility] HospitalComment on above:Performed By: #### CBC #### [facility] [address] [place] [address] [address] Toshia Escalante #0.6 103/ulNormal0.3-0.8The [facility] HospitalComment on above:Performed By: #### CBC #### [facility] [address] [place] [address] Dr. Toshia Wassermanocytes/100 WBC (Bld)6.2 %Normal1.7-12.0[facility] Comment on above:Performed By: #### CBC #### [facility] [address] [place] [address] [address] Toshia Lau #6.9 103/ulCritically high1.4-6.5[facility] Comment on above:Performed By: #### CBC #### [facility] [address] [place] [address] [address] Toshia Linaresutrophils/100 WBC (Bld)75.2 %Critically high43.0-75.0The [facility] HospitalComment on above:Performed By: #### CBC #### [facility] [address] [place] [address] [address] Toshia Rodríguezlet mean volume (Bld) [Entitic vol]9.9 fLNormal9.5-13.5The [facility] HospitalComment on above:Performed By: #### CBC #### [facility] [address] [place] [address] [address] Toshia JiangPLT151 103/muGjwbzz775-652Lnr [facility] Institutement on above: Performed By: #### CBC #### [facility] [address] [place], [place] [address] Dr. Toshia JiangRBC3.96 106/ulCritically low4.70-6.10[facility] on above:Performed By: #### CBC #### [facility] [address] [place], [place] [address] Dr. Toshia JiangWBC9.1 103/ulNormal4.0-11.0The [facility] HospitalComment on above: Performed By: #### CBC #### [facility] [address] [place], [place] [address] Dr. Toshia JiangCT ABD/PELVIS WO CONon 81-02-3000KM ABD/PELVIS WO CONEXAMINATION: CT ABD/PELVIS WO CON, [...] by: MIKE LUNA Date: 2022-11-12 18:07Normal [facility] URINE PROFILEon 26-84-3724Pwlflftma Ql (U)NegativeNormal NEGATIVEMadison HealthComment on above:Performed By: #### CHAD UMICRO #### [facility] [address] [place] [address] Dr. Toshia JiangClarity (U)CLEARNormalCLEARMadison HealthComment on above: Performed By: #### CHAD UMICRO #### [facility] [address] [place] [address] Dr. Toshia Coulter (U)LT. YELLOWNormalYELLOWMadison HealthComment on above:Performed By: #### CHAD UMICRO #### [facility] [address] [place] [address] Dr. Toshia Cano micrscopic examination will be performed if indicated. NormalThe [facility] County HospitalComment on above:Performed By: #### CHAD UMICRO #### [facility] [address] [place] [address] Dr. Toshia JiangGlucose Ql (U)NegativeNormalNEGATIVEMadison HealthComment on above:Performed By: #### JANAR UMICRO #### [facility] [address] [place] [address] Dr. Toshia JiangHemoglobin Ql (U)TRACE-INTACTAbnormalNEGATIVEMadison HealthComment on above:Performed By: #### JANAR UMICRO #### [facility] [address] [place] [address] Dr. Toshia Lopez Ql (U)NegativeNormalNEGATIVEThe [facility] HospitalComment on above:Performed By: #### ROHIT BONILLA #### [facility] [address] [place] [address] Dr. Toshia MotaOCYTESNegativeNormalNEGATIVEThe [facility] HospitalComment on above:Performed By: #### ROHIT BONILLA #### [facility] [address] [place] [address] Dr. Toshia Condetrjeffrey Ql (U)NegativeNormalNEGATIVEThe [facility] HospitalComment on above:Performed By: #### ROHIT BONILLA #### [facility] [address] [place] [address] Dr. Toshia JiangpH (U)5.5 [pH]Normal5-9The [facility] HospitalComment on above: Performed By: #### ROHIT BONILLA #### [facility] [address] [place] [address] Dr. Toshia JiangProtein (U) [Mass/Vol]30 mg/dLAbnormalNEGATIVE/ TRACEThe [facility] HospitalComment on above:Performed By: #### ROHIT BONILLA #### [facility] [address] [place] [address] Dr. Toshia JiangSPEC GRAVITY1.072Ohaeslfd2.005-<=1.025[facility] Comment on above:Performed By: #### ROHIT BONILLA #### [facility] [address] [place] [address] Dr. Toshia Fontenot MICRO INDINDICATEDNormalThe [facility] HospitalComment on above: Performed By: #### ROHIT BONILLA #### [facility] [address] [place] [address] Dr. Toshia Moreinogen Qn (U)0.2 {Nilson'U}/dLNormal0.2 - 1.0The [facility] HospitalComment on above:Performed By: #### ROHIT BONILLA #### [facility] [address] [place] [address] Dr. Toshia JiangLIPASEon 96-05-8355Ntrvcx [Catalytic activity/Vol]60.0 U/L Critically low73.0-393.0The [facility] HospitalComment on above:Performed By: #### LIPA, CMP #### [facility] [address] [place] [address] Dr. Toshia JiangPROF 14(COMP METB)on 56-18-6392Wywoxir [Mass/Vol]3.5 g/dLNormal 3.4-5.0The [facility] HospitalComment on above:Performed By: #### LIPA, CMP #### [facility] [address] [place] [address] Dr. Toshia JiangAlbumin/Globulin [Mass ratio]0.9 {ratio}NormalThe [facility] HospitalComment on above:Performed By: #### LIPA, CMP #### [facility] [address] [place] [address] Dr. Toshia Long [Catalytic activity/Vol]71 U/JEthtel99-231Lnl [facility] HospitalComment on above:Performed By: #### LIPA, CMP #### [facility] [address] [place] [address] Dr. Toshia Mosqueda [Catalytic activity/Vol]32 U/CCuneas85-30Hzv [facility] HospitalComment on above:Performed By: #### LIPA, CMP #### [facility] [address] [place] [address] Dr. Toshia Adams gap [Moles/Vol]15.7 mmol/LNormalThe [facility] Comment on above:Performed By: #### LIPA, CMP #### [facility] [address] [place] [address] Dr. Toshia Evans [Catalytic activity/Vol]33 U/HUtbacw85-64Ydy [facility] HospitalComment on above:Performed By: #### LIPA, CMP #### [facility] [address] [place] [address] Dr. Toshia JiangBilirubin [Mass/Vol]0.4 mg/dLNormal0.2-1.0[facility] Comment on above:Performed By: #### LIPA, CMP #### [facility] [address] [place] [address] Dr. Toshia JiangCalcium [Mass/Vol]8.6 mg/dLNormal8.5-10.1[facility] Comment on above:Performed By: #### LIPA, CMP #### [facility] [address] [place] [address] Dr. Tohsia JiangChloride [Moles/Vol]107 mmol/OYknhli61-022Xts [facility] Comment on above:Performed By: #### LIPA, CMP #### [facility] [address] [place] [address] Dr. Toshia JiangCO2 [Moles/Vol]20.1 mmol/LCritically low21.0-32.0The [facility] HospitalComment on above:Performed By: #### LIPA, CMP #### [facility] [address] [place] [address] Dr. Toshia JiangCreatinine [Mass/Vol]1.52 mg/dLCritically high0.70-1.30The [facility] HospitalComment on above:Performed By: #### LIPA, CMP #### [facility] [address] [place] [address] Dr. Toshia LedezmaGFR-AF LNEMSTOX26 mL/min/1.12f5Nyqffshvsj low>=60The [facility] HospitalComment on above:Performed By: #### LIPA, CMP #### [facility] [address] [place] [address] Dr. Toshia LedezmaGFR-NON AF MBUUBXGC18 mL/min/1.03o0Zipctjypvt low>=60The [facility] HospitalComment on above:Performed By: #### LIPA, CMP #### [facility] [address] [place] [address] Dr. Toshia JiangGlobulin (S) [Mass/Vol]3.7 g/dLNormalThe [facility] HospitalComment on above:Performed By: #### LIPA, CMP #### [facility] [address] [place] [address] [address] Toshia JiangGlucose [Mass/Vol]128 mg/dLCritically apsh06-522Guu [facility] HospitalComment on above:Performed By: #### LIPA, CMP #### [facility] [address] [place] [address] [address] Toshia JiangPotassium [Moles/Vol]3.8 mmol/LNormal3.5-5.1The [facility] Comment on above:Performed By: #### LIPA, CMP #### [facility] [address] [place] [address] [address] Toshia JiangProtein [Mass/Vol]7.2 g/dLNormal6.4-8.2The [facility] Comment on above:Performed By: #### LIPA, CMP #### [facility] [address] [place] [address] [address] Toshia JiangSodium [Moles/Vol]139 mmol/NLkdvlv316-618Xlv [facility] Comment on above:Performed By: #### LIPA, CMP #### [facility] [address] [place] [address] [address] Toshia JiangUrea nitrogen [Mass/Vol]12.0 mg/dLNormal7.0-18.0The [facility] HospitalComment on above:Performed By: #### LIPA, CMP #### [facility] [address] [place] [address] [address] Toshia Shahdi nitrogen/Creatinine [Mass ratio]7.9 mg/mgNormLutheran HospitalComment on above:Performed By: #### LIPA, CMP #### [facility] [address] [place] [address] [address] Toshia Hernandez MICROSCOPIC ONLYon 62-99-8600JDCRNETSJNZW SEENNormalNONE SEENThe [facility] HospitalComment on above:Performed By: #### ERUROHIT Galloway ####[facility] [address] [place], [place]Dmaya Domínguezctniall identified Cx Nom (U)NOT INDICATEDNormCleveland Clinic Fairview HospitalMcCullough-Hyde Memorial HospitalComment on above:Performed By: #### CHAD, UMICRO ####[facility] [address] [place] [id number]. Toshia JiangCASTNONE SEEN NormalNONE SEENMadison HealthCommackinac straits hospital on above:Performed By: #### ERUR, UMICRO ####[facility] [address] [place] [address]Dr. Toshia ApolinarCrystals LM Nom (Urine sed)NONE SEENNormalNONE SEENMadison HealthComment on above:Performed By: #### CHAD UMICRO ####[facility] [address] [place] [address]Dr. Toshia Jiang Epithelial cells LM Ql (Urine sed)RARENormalNONE SEEN /RAREThe [facility] Comment on above:Performed By: #### CHAD UMICRO ####[facility] [address] [place] [address]Dr. Toshia ApolinarMUCOUSNONE SEEN NormalNONE SEENMadison HealthCommackinac straits hospital on above:Performed By: #### CHAD UMICRO ####[facility] [address] [place] [address]Dr. Toshia BffsoVDP1-8Qfuett6-4I[address] [facility] on above: Performed By: #### CHAD UMICRO ####[facility] [address] [place], [place] [address]Dr. Toshia ApolinarWBCNONE SEENNormalNONE SEENMadison HealthCommackinac straits hospital on above:Performed By: #### CHAD, UMICRO ####[facility] [address] [place], [place] [address]Dr. Toshia JiangBasophils Auto (Bld) [#/Vol]Ordered By: Elizabeth Ramey on 67-15-1241Bdzeditpd (Bld) [#/Vol]0.0 10*3/uL0.0-0.2FElyria Memorial HospitalBasophils/100 WBC Auto (Bld) Ordered By: Elizabeth Ramey on 68-98-1653Vjfzhcdoq/100 WBC (Bld)0.5 %.[facility] HospitalCreatinine and Glomerular filtration rate.predicted panel (S/P/Bld)Ordered By: Elizabeth Ramey on 80-96-8835Coybohukjd [Mass/Vol]1.15 mg/dL 0.64-1.27Pro[facility] HospitalEosinophils Auto (Bld) [#/Vol]Ordered By: Elizabeth Ramey on 49-42-5620Urdpydunomq (Bld) [#/Vol]0.1 10*3/uL0.0-0.45 [facility] HospitalEosinophils/100 WBC Auto (Bld)Ordered By: Elizabeth Ramey on 24-15-6882Eveqqnkkszr/100 WBC (Bld)1.2 %.[facility] HospitalErythrocyte distribution width Auto (RBC) [Ratio]Ordered By: Elizabeth Ramey on 52-44-0376Gzfqqlanmxi distribution width (RBC) [Ratio]13.4 %12.0-14.8 [facility] HospitalEstimated glomerular filtration rate (GFR) non- AmericanOrdered By: Elizabeth Ramey on 00-00-2189BSU/1.73 sq M.predicted among non-blacks MDRD (S/P/Bld) [Vol rate/Area]> 60 mL/MinProtestant HospitalHematocrit Auto (Bld) [Volume fraction]Ordered By: Elizabeth Ramey on 65-93-5366Efepxbawgg (Bld) [Volume fraction]30.6 %38.8-50.0[facility] HospitalHemoglobin [Mass/volume] in BloodOrdered By: Elizabeth Ramey on 80-13-1620Hwopfnieki (Bld) [Mass/Vol]10.4 g/dL13.0-17.0[facility] HospitalLeukocytes [#/volume] corrected for nucleated erythrocytes in Blood by Automated counOrdered By: Elizabeth Ramey on 16-29-2626KFQ corrected for nucl RBC Auto (Bld) [#/Vol]6.3 10*3/uL4.1-10.5FElyria Memorial Hospital Lymphocytes Auto (Bld) [#/Vol]Ordered By: Elizabeth Ramey on 08-06-9817Qmgiwshyzas (Bld) [#/Vol]1.9 10*3/uL1.00-4.8[facility] HospitalLymphocytes/100 WBC Auto (Bld)Ordered By: Elizabeth Ramey on 34-45-6731Nanqdfjxegy/100 WBC (Bld) 30.0 %.[facility] CenterH Auto (RBC) [Entitic mass]Ordered By: Elizabeth Ramey on 63-11-0716UUU (RBC) [Entitic mass]33.3 pg27.5-35.2FElyria Memorial HospitalMCHC Auto (RBC) [Mass/Vol]Ordered By: Elizabeth Ramey on 38-55-6762XLSO (RBC) [Mass/Vol]34.1 g/dL32.5-35.6FElyria Memorial HospitalMCV Auto (RBC) [Entitic vol]Ordered By: Elizabeth Ramey on 60-79-9088FWA (RBC) [Entitic vol]97.5 fL83.5-101Pro[facility] HospitalMonocytes Auto (Bld) [#/Vol]Ordered By: Elizabeth Ramey on 95-58-6611Vacnrocmg (Bld) [#/Vol]0.6 10*3/uL0.0-0.8Pro[facility] HospitalMonocytes/100 WBC Auto (Bld) Ordered By: Elizabeth Ramey on 68-57-8847Hokskszdg/100 WBC (Bld)9.3 %.[facility] HospitalNeutrophils Auto (Bld) [#/Vol]Ordered By: Elizabeth Ramey on 84-04-5486Izqwkfonjsv (Bld) [#/Vol]3.7 10*3/uL1.8-7.7FElyria Memorial HospitalNeutrophils/100 WBC Auto (Bld)Ordered By: Elizabeth Ramey on 07-12-2022 Neutrophils/100 WBC (Bld)59.0 %.[facility] HospitalNo Panel InformationOrdered By: Elizabeth Ramey on 06-53-5644Mvkudijek GFR () > 60 mL/MinProtestant HospitalComment on above:GFR estimated reference range: According to KDOQI guidelines, <60 ml/min/1.73m2 is sufficient todiagnose a patient with chronic kidney disease.Pharmacy Creatinine Clearance (Chem47.75Protestant HospitalNucleated erythrocytes [Presence] in Blood by Automated countOrdered By: Elizabeth Ramey on 01-45-6114Ttwtjsofn RBC Auto Ql (Bld)0.1 /100{WBC}0-0.5FElyria Memorial HospitalPlatelet mean volume Auto (Bld) [Entitic vol]Ordered By: Elizabeth Ramey on 74-34-2516Zafrqcmj mean volume (Bld) [Entitic vol]9.2 fL6.6-10.1FElyria Memorial Hospital Platelets Auto (Bld) [#/Vol]Ordered By: Elizabeth Ramey on 77-64-9403Wlqxqpsfn (Bld) [#/Vol]103 10*3/rD449-672IgvfzvzubProtestant HospitalRBC Auto (Bld) [#/Vol]Ordered By: Elizabeth Ramey on 02-02-1227KPJ (Bld) [#/Vol]3.14 10*6/uL 3.90-5.60[facility] Centererum or plasma anion gap determinationOrdered By: Elizabeth Ramey on 47-11-9364Folaa gap [Moles/Vol]7.7 mmol/L6.0-15.0[facility] Centererum or plasma calcium measurement (mass/volume)Ordered By: Elizabeth Ramey on 32-01-7277Kiiaapu [Mass/Vol] 8.2 mg/dL8.2-10.2FAdena Pike Medical Centererum or plasma chloride measurement (moles/volume)Ordered By: Elizabeth Ramey on 73-37-7470Zmbwebtz [Moles/Vol]110 mmol/K13-690KmkguffglUniversity Hospitals Elyria Medical Centererum or plasma glucose measurement (mass/volume)Ordered By: Elizabeth Ramey on 61-91-9462Fpbmrrh [Mass/Vol]102 mg/hE36-907CgscduypiProtestant HospitalComment on above:ADA recommended reference rangeRandom Glucose Reference Range is dependent on time and content of last meal. Glucose of more than 200 mg/dL in a nonstressed, ambulatory subject supports the diagnosisof Diabetes Mellitus.Serum or plasma potassium measurement (moles/volume)Ordered By: Elizabeth Ramey on 07-12-2022 Potassium [Moles/Vol]3.7 mmol/L3.5-5.1FAdena Pike Medical Centererum or plasma sodium measurement (moles/volume)Ordered By: Elizabeth Ramey on 07-12-2022 Sodium [Moles/Vol]135 mmol/K609-852WogdcootbUniversity Hospitals Elyria Medical Centererum or plasma total carbon dioxide measurement (moles/volume)Ordered By: Elizabeth Ramey on 23-37-3526TR5 [Moles/Vol]21.0 mmol/L22.0-30.0[facility] Serum or plasma urea nitrogen measurement (mass/volume)Ordered By: Elizabeth Ramey on 39-57-4443Zvsn nitrogen [Mass/Vol]9 mg/dL9-23Protestant HospitalWBC Auto (Bld) [#/Vol]Ordered By: Elizabeth Ramey on 89-05-2180ARC (Bld) [#/Vol]6.3 10*3/uL4.1-10.5FElyria Memorial HospitalCreatinine [Mass/volume] in UrineOrdered By: Elizabeth Ramey on 74-91-9473Ftpcylexat (U) [Mass/Vol]83.2 mg/dLProtestant HospitalComment on above:No reference range establishedUrine sodium measurement (moles/volume)Ordered By: Elizabeth Ramey on 60-89-8945Xtjwsf (U) [Moles/Vol]111 mmol/LFElyria Memorial HospitalComment on above:No reference range establishedActivated partial thromboplastin time (aPTT) in platelet poor plasma by coagulation aOrdered By: Tomás Roche on 64-17-0349eBKU Coag (PPP) [Time]28.8 s25.1-36.5FElyria Memorial HospitalAmphetamine Screen Ql (U)Ordered By: Tomás Roche on 22-40-7286Jwmnmnbmxzsk Ql (U)NegativeNegativeProtestant Hospital Barbiturates [Presence] in UrineOrdered By: Tomás Roche on 2022 Barbiturates Ql (U)NegativeNegativeProtestant HospitalBasophils Auto (Bld) [#/Vol]Ordered By: Tomás Roche on 19-67-3664Xgnasokgr (Bld) [#/Vol]0.0 10*3/uL0.0-0.2FElyria Memorial HospitalBasophils/100 WBC Auto (Bld)Ordered By: Tomás Roche on 12-29-7538Xjpzwdkwb/100 WBC (Bld)0.6 %. Protestant HospitalBenzodiazepines [Presence] in UrineOrdered By: Tomás Roche on 60-04-7704Sicbjvdkglaswwt Ql (U)NegativeNegativeProtestant HospitalBody fluid albumin measurement (mass/volume)Ordered By: Tomás Roche on 42-10-9090Enchpus (Body fld) [Mass/Vol]3.5 g/dL3.2-5.5 Protestant HospitalCOVID CepheidOrdered By: Tomás Roche on 94-09-7375JADR-CoV-2 (COVID-19) Ab IA QlNegativeNegativeProtestant HospitalComment on above:This is a duplicate [employer] Xpert Xpress CoV- 2/Flu/RSV Plus RNA by RT-PCR result to be used for statistical tracking purpose only.SARS-CoV-2 (COVID-19) RNA KERRIE+probe Ql (Unsp spec)Protestant HospitalCannabinoids [Presence] in Urine by Screen methodOrdered By: Tomás Roche on 37-31-0385Ohwrheluubal Screen Ql (U)PositiveNegative Protestant HospitalComment on above:These are unconfirmed results and should not be used for legal purposes. Drug Cut-Off Concentration: AMPH 1000 ng/mL NOE 200 ng/mL JACKI 200 ng/mL COCM 300 ng/mL OP 300 ng/mL PCP 25 ng/mL THC 20 ng/mLCreatine kinase [Enzymatic activity/volume] in Serum or Plasma Ordered By: Tomás Roche on 52-68-2282SX [Catalytic activity/Vol]96 U/L [facility] HospitalCreatinine and Glomerular filtration rate.predicted panel (S/P/Bld)Ordered By: Tomás Roche on 2022 Creatinine [Mass/Vol]2.28 mg/dL0.64-1.27[facility] Eosinophils Auto (Bld) [#/Vol]Ordered By: Tomás Roche on 2022 Eosinophils (Bld) [#/Vol]0.0 10*3/uL0.0-0.45[facility] Eosinophils/100 WBC Auto (Bld)Ordered By: Tomás Roche on 2022 Eosinophils/100 WBC (Bld)0.6 %.Pro[facility]ant HospitalErythrocyte distribution width Auto (RBC) [Ratio]Ordered By: Tomás Roche on 2022 Erythrocyte distribution width (RBC) [Ratio]13.2 %12.0-14.8Protestant HospitalEstimated glomerular filtration rate (GFR) non- Ordered By: Tomás Roche on 21-54-6211RHK/1.73 sq M.predicted among non- blacks MDRD (S/P/Bld) [Vol rate/Area]28 mL/MinProtestant Hospital Globulin Calc (S) [Mass/Vol]Ordered By: Tomás Roche on 69-46-8741Dlakdawt (S) [Mass/Vol]2.9 g/dLProtestant HospitalHematocrit Auto (Bld) [Volume fraction]Ordered By: Tomás Roche on 57-85-9017Holodopxme (Bld) [Volume fraction]36.7 %38.8-50.0Pro[facility] HospitalHemoglobin [Mass/volume] in BloodOrdered By: Tomás Roche on 21-99-6808Iddqrggnvt (Bld) [Mass/Vol]12.2 g/dL13.0-17.0[facility] HospitalLaboratory - Chemistry and Chemistry - challengeOrdered By: Tomás Roche on 2022 Magnesium [Mass/Vol]2.1 mg/dL1.6-2.6FElyria Memorial HospitalNatriuretic peptide B (Bld) [Mass/Vol]221.0 pg/mL5-100[facility] - CoagulationOrdered By: Tomás Roche on 51-32-7596OJ Coag (PPP) [Time]11.9 s9.0-12.9Pro[facility] HospitalLaboratory - Drug toxicologyOrdered By: Tomás Roche on 25-74-2796Pkvesuu Ql (U)Negative NegativeProtestant HospitalLeukocytes [#/volume] corrected for nucleated erythrocytes in Blood by Automated counOrdered By: Tomás Roche on 05-03-4984MTN corrected for nucl RBC Auto (Bld) [#/Vol]6.8 10*3/uL4.1-10.5 [facility] HospitalLymphocytes Auto (Bld) [#/Vol]Ordered By: Tomás Roche on 50-43-2014Mrmfcrjcctd (Bld) [#/Vol]1.4 10*3/uL1.00-4.8 [facility] HospitalLymphocytes/100 WBC Auto (Bld)Ordered By: Tomás Roche on 79-02-3107Ulunesgfnvw/100 WBC (Bld)20.4 %.[facility] Auto (RBC) [Entitic mass]Ordered By: Tomás Roche on 73-08-4523XXR (RBC) [Entitic mass]33.0 pg27.5-35.2FElyria Memorial HospitalMCHC Auto (RBC) [Mass/Vol]Ordered By: Tomás Roche on 49-84-3557LKZS (RBC) [Mass/Vol]33.3 g/dL32.5-35.6FElyria Memorial HospitalMCV Auto (RBC) [Entitic vol]Ordered By: Tomás Roche on 06-78-7373GDG (RBC) [Entitic vol]99.2 fL83.5-101Protestant HospitalMonocyte distribution width [Entitic volume] in Blood by AutomatedOrdered By: Tomás Roche on 66-90-6483Jisgxhml distribution width Auto (Bld) [Entitic vol]15.55 % 0.00-20.00Pro[facility] HospitalMonocytes Auto (Bld) [#/Vol]Ordered By: Tomás Roche on 59-07-4650Uglffyvzu (Bld) [#/Vol]0.5 10*3/uL0.0-0.8 [facility] HospitalMonocytes/100 WBC Auto (Bld)Ordered By: Tomás Roche on 29-97-4765Wweseeiug/100 WBC (Bld)6.9 %.[facility] HospitalNeutrophils Auto (Bld) [#/Vol]Ordered By: Tomás Roche on 80-61-5781Eawhlvrcuaa (Bld) [#/Vol]4.9 10*3/uL1.8-7.7FElyria Memorial HospitalNeutrophils/100 WBC Auto (Bld)Ordered By: Tomás Roche on 2022 Neutrophils/100 WBC (Bld)71.5 %.[facility] HospitalNo Panel InformationOrdered By: Tomás Roche on 23-09-3286Idwthifdc GFR ()34 mL/MinProtestant HospitalComment on above:GFR estimated reference range: According to KDOQI guidelines, <60 ml/min/1.73m2 is sufficient todiagnose a patient with chronic kidney disease.Pharmacy Creatinine Clearance (Chem24.00Protestant HospitalNucleated erythrocytes [Presence] in Blood by Automated countOrdered By: Tomás Roche on 35-06-9399Gwwdfrjbn RBC Auto Ql (Bld)0.1 /100{WBC}0-0.5FElyria Memorial HospitalPhencyclidine Screen Ql (U)Ordered By: Tomás Roche on 71-04-8958Ofsawhexzksgf Ql (U)NegativeNegativeProtestant Hospital Platelet mean volume Auto (Bld) [Entitic vol]Ordered By: Tomás Roche on 95-94-4919Jvdwzhhj mean volume (Bld) [Entitic vol]9.2 fL6.6-10.1FElyria Memorial HospitalPlatelet poor plasma international normalized ratio (INR) by coagulation assay (relatOrdered By: Tomás Roche on 29-73-4228IHO Coag (PPP) [Relative time]1.1 {INR}Protestant HospitalComment on above: INR Therapeutic Range A) Pre- [...] Auto (Bld) [#/Vol]Ordered By: Tomás Roche on 47-75-0790Nsonkmbca (Bld) [#/Vol]136 10*3/bG706-050FxmidxrnfProtestant HospitalProtein [Mass/volume] in Serum or PlasmaOrdered By: Tomás Roche on 2022 Protein [Mass/Vol]6.4 g/dL6.1-7.9Protestant HospitalRBC Auto (Bld) [#/Vol]Ordered By: Tomás Roche on 57-22-3940XBG (Bld) [#/Vol]3.70 10*6/uL 3.90-5.60[facility] Centererum or plasma alanine aminotransferase measurement without P-5'-P (enzymatic activiOrdered By: Tomás Roche on 03-14-9329JEK No additional P-5'-P [Catalytic activity/Vol] 44 U/A11-58KycqocfkkUniversity Hospitals Elyria Medical Centererum or plasma albumin/globulin mass ratioOrdered By: Tomás Roche on 79-53-2430Ywtwyad/Globulin [Mass ratio]1.2 {ratio}[facility] Centererum or plasma alkaline phosphatase measurement (enzymatic activity/volume)Ordered By: Tomás Roche on 48-53-3309AMT [Catalytic activity/Vol]55 U/C92-29TlbhneidfUniversity Hospitals Elyria Medical Centererum or plasma anion gap determinationOrdered By: Tomás Roche on 64-71-9630Hnnpw gap [Moles/Vol]15.3 mmol/L6.0-15.0[facility] Centererum or plasma aspartate aminotransferase measurement (enzymatic activity/volume)Ordered By: Tomás Roche on 31-63-2214LHY [Catalytic activity/Vol]37 U/J88-98VwyiwzuilUniversity Hospitals Elyria Medical Centererum or plasma calcium measurement (mass/volume)Ordered By: Tomás Roche on 68-81-0208Obyzapf [Mass/Vol]8.4 mg/dL8.2-10.2FAdena Pike Medical Centererum or plasma chloride measurement (moles/volume)Ordered By: Tomás Roche on 2022 Chloride [Moles/Vol]105 mmol/W56-908OcsqtrgnvUniversity Hospitals Elyria Medical Centererum or plasma creatine kinase MB (CKMB)/total creatine kinase (CK) ratio by calcula Ordered By: Tomás Roche on 28-14-9628LY.MB Calc [Catalytic fraction]2.8 % 0.00-2.50[facility] Centererum or plasma creatine kinase MB measurement (mass/volume)Ordered By: Tomás Roche on 69-01-0846RL.MB [Mass/Vol]2.7 ng/mL0.6-6.3FAdena Pike Medical Centererum or plasma glucose measurement (mass/volume)Ordered By: Tomás Roche on 2022 Glucose [Mass/Vol]115 mg/wS36-039WfvlastulProtestant HospitalComment on above:ADA recommended reference rangeRandom Glucose Reference Range is dependent on time and content of last meal. Glucose of more than 200 mg/dL in a nonstressed, ambulatory subject supports the diagnosisof Diabetes Mellitus.Serum or plasma potassium measurement (moles/volume)Ordered By: Tomás Roche on 14-97-4398Vkebtjygs [Moles/Vol]4.0 mmol/L3.5-5.1FAdena Pike Medical Centererum or plasma sodium measurement (moles/volume)Ordered By: Tomás Roche on 69-34-2786Aazqmh [Moles/Vol]135 mmol/P437-986WnwdylrqtUniversity Hospitals Elyria Medical Centererum or plasma total bilirubin measurement (mass/volume)Ordered By: Tomás Roche on 70-50-3861Iixobjtdv [Mass/Vol]0.6 mg/dL0.3-1.2FAdena Pike Medical Centererum or plasma total carbon dioxide measurement (moles/volume)Ordered By: Tomás Roche on 81-26-7160EI9 [Moles/Vol]18.7 mmol/L22.0-30.0[facility] Centererum or plasma urea nitrogen measurement (mass/volume)Ordered By: Tomás Roche on 43-78-9755Oecf nitrogen [Mass/Vol]20 mg/dL9-23Protestant HospitalTS DL <= 0.005 mIU/L QnOrdered By: Tomás Roche on 64-74-6980OAG Qn0.96 m[IU]/L0.45-5.33 [facility] HospitalTroponin I.cardiac [Mass/volume] in Serum or Plasma by High sensitivity methodOrdered By: Tomás Roche on 2022 Troponin I.cardiac High sensitivity method [Mass/Vol]11 pg/mL0-20Pro[facility] HospitalUrine cocaine detectionOrdered By: Tomás Kaley on 98-93-6415Ebmvvzg Ql (U)NegativeNegativeProtestant HospitalWBC Auto (Bld) [#/Vol]Ordered By: Tomás Kaley on 15-28-3517MXY (Bld) [#/Vol] 6.8 10*3/uL4.1-10.5FElyria Memorial HospitalPROF CHEM 8 (BAS METB)on 27-80-6210Jisuz gap [Moles/Vol]9.2 mmol/LNormalThe [facility] HospitalComment on above:Performed By: #### BMP #### [facility] [address] [address] [address] Toshia JiangCalcium [Mass/Vol]8.5 mg/dLNormal8.5-10.1[facility] Comment on above:Performed By: #### BMP #### [facility] [address] [address] [address] Toshia JiangChloride [Moles/Vol]103 mmol/NRgcdtg27-660PzwMadison Health Comment on above:Performed By: #### BMP #### [facility] [address] [address] [address] Toshia JiangCO2 [Moles/Vol]29.3 mmol/FFldfeh49.0-32.0[facility] Comment on above:Performed By: #### BMP #### [facility] [address] [address] [address] Toshia JiangCreatinine [Mass/Vol]1.12 mg/dLNormal0.70-1.30[facility] HealthComment on above:Performed By: #### BMP #### [facility] [address] [address] [address] Toshia LedezmaGFR-AF ESTONIAN>60Normal>=60The [facility] HospitalComment on above:Performed By: #### BMP #### [facility] [address] [address] [address] Toshia LedezmaGFR-NON AF ESTONIAN>60Normal>=60The [facility] HospitalComment on above:Performed By: #### BMP #### [facility] [address] [address] [address] Toshia JiangGlucose [Mass/Vol]109 mg/dLCritically wplu25-665Kth [facility] HospitalComment on above:Performed By: #### BMP #### [facility] [address] [address] [address] Toshia JiangPotassium [Moles/Vol]3.5 mmol/LNormal3.5-5.1The [facility] Comment on above:Performed By: #### BMP #### [facility] [address] [address] [address] Toshia JiangSodium [Moles/Vol]138 mmol/BZinsbc282-495YmqMadison Health Comment on above:Performed By: #### BMP #### [facility] [address] [address] [address] Toshia JiangUrea nitrogen [Mass/Vol]12.0 mg/dLNormal7.0-18.0The [facility] HospitalComment on above:Performed By: #### BMP #### [facility] [address] [address] [address] Toshia JiangUrea nitrogen/Creatinine [Mass ratio]10.7 mg/mgNormalThe [facility] HospitalComment on above:Performed By: #### BMP #### [facility] [address] [address] [address] Toshia JiangPROF CHEM 8 (BAS METB)on 25-73-8632Ohvob gap [Moles/Vol]9.0 mmol/LNormalThe [facility] HospitalComment on above:Performed By: #### BMP #### [facility] [address] [address] [address] Toshia JiangCalcium [Mass/Vol]8.4 mg/dLCritically low8.5-10.1The [facility] HospitalComment on above:Performed By: #### BMP #### [facility] [address] [address] [address] Toshia JiangChloride [Moles/Vol]103 mmol/SBpxqza87-372Hfi [facility] Comment on above:Performed By: #### BMP #### [facility] [address] [address] [address] Toshia JiangCO2 [Moles/Vol]32.1 mmol/LCritically high21.0-32.0The [facility] HospitalComment on above:Performed By: #### BMP #### [facility] [address] [address] [address] Toshia JiangCreatinine [Mass/Vol]1.03 mg/dLNormal0.70-1.30The [facility] HospitalComment on above:Performed By: #### BMP #### [facility] [address] [address] [address] Toshia LedezmaGFR-AF ESTONIAN>60Normal>=60The [facility] HospitalComment on above:Performed By: #### BMP #### [facility] [address] [address] [address] Toshia LedezmaGFR-NON AF ESTONIAN>60Normal>=60The [facility] HospitalComment on above:Performed By: #### BMP #### [facility] [address] [address] [address] Toshia JiangGlucose [Mass/Vol]103 mg/qLBqfpyv85-056AmdMadison Health Comment on above:Performed By: #### BMP #### [facility] [address] [address] [address] Toshia JiangPotassium [Moles/Vol]3.1 mmol/LCritically low3.5-5.1The [facility] HospitalComment on above:Performed By: #### BMP #### [facility] [address] [address] [address] Toshia JiangSodium [Moles/Vol]141 mmol/ZZhncmc316-161Jat [facility] Comment on above:Performed By: #### BMP #### [facility] [address] [address] [address] Toshia JiangUrea nitrogen [Mass/Vol]11.0 mg/dLNormal7.0-18.0The [facility] HospitalComment on above:Performed By: #### BMP #### [facility] [address] [place], [place] [address] Dr[address] Toshia JiangUrea nitrogen/Creatinine [Mass ratio]10.7 mg/mgFlower HospitalComment on above:Performed By: #### BMP #### [facility] [address] [place], [place] [address] Dr[address] Pope ChangECHOCARDIO M/2D COMPLETEon 86-95-7589EXDSPDLBMR M/2D COMPLETE Patient: DUNG COFFMAN Exam Date: 03/03/2022 : 1950 Gender:M Ordering : [facility] Admission #: [id number] Family : DR EVARISTO TAVARES . Order #: [id number] CLICK HERE TO VIEW EXAM ECHOCARDIOGRAM REPORT [...] by: Marshal Miller M.D. on 03/03/2022 at 20:08Flower HospitalBNPon 14-39-7222Pmdqhsgnokm peptide B (Bld) [Mass/Vol]3595.0 pg/mL Critically high<=900.0The [facility] Institutement on above:Performed By: #### BNP, CMP #### [facility] [address] [place] [address] Dr. Toshia JiangPROF 14(COMP METB)on 64-30-4966Nnbyuhl [Mass/Vol]3.0 g/dL Critically low3.4-5.0The [facility] HospitalComment on above:Performed By: #### BNP, CMP #### [facility] [address] [place] [address] Dr. Toshia JiangAlbumin/Globulin [Mass ratio]0.8 {ratio}NormalThe [facility] on above:Performed By: #### BNP, CMP #### [facility] [address] [place] [address] Dr. Toshia CastilloP [Catalytic activity/Vol]53 U/EBhctft38-186Dmk Ivanna HospitalComment on above:Performed By: #### BNP, CMP #### [facility] [address] [address] [address] Toshia Mosqueda [Catalytic activity/Vol]28 U/IFmobqd82-89Bfy [facility] HospitalComment on above:Performed By: #### BNP, CMP #### [facility] [address] [address] [address] Toshia Reddingon gap [Moles/Vol]9.8 mmol/LNormalThe [facility] HospitalComment on above:Performed By: #### BNP, CMP #### [facility] [address] [address] [address] Toshia JiangAST [Catalytic activity/Vol]23 U/WMprphk84-34Rok [facility] HospitalComment on above:Performed By: #### BNP, CMP #### [facility] [address] [address] [address] Toshia JiangBilirubin [Mass/Vol]0.3 mg/dLNormal0.2-1.0The [facility] Comment on above:Performed By: #### BNP, CMP #### [facility] [address] [address] [address] Toshia JiangCalcium [Mass/Vol]8.5 mg/dLNormal8.5-10.1The [facility] Comment on above:Performed By: #### BNP, CMP #### [facility] [address] [address] [address] Toshia JiangChloride [Moles/Vol]104 mmol/EMnkftc99-976Mpf [facility] Comment on above:Performed By: #### BNP, CMP #### [facility] [address] [address] [address] Toshia JiangCO2 [Moles/Vol]30.0 mmol/YDkusbi39.0-32.0The [facility] Comment on above:Performed By: #### BNP, CMP #### [facility] [address] [address] [address] Toshia JiangCreatinine [Mass/Vol]0.89 mg/dLNormal0.70-1.30The [facility] HospitalComment on above:Performed By: #### BNP, CMP #### [facility] [address] [address] [address] Toshia LedezmaGFR-AF ESTONIAN>60Normal>=60The [facility] HospitalComment on above:Performed By: #### BNP, CMP #### [facility] [address] [address] [address] Toshia LedezmaGFR-NON AF ESTONIAN>60Normal>=60The [facility] HospitalComment on above:Performed By: #### BNP, CMP #### [facility] [address] [address] [address] Toshia JiangGlobulin (S) [Mass/Vol]3.7 g/dLNormalThe [facility] HospitalComment on above:Performed By: #### BNP, CMP #### [facility] [address] [address] [address] Toshia JiangGlucose [Mass/Vol]101 mg/xKSkmnyy39-630SyzMadison Health Comment on above:Performed By: #### BNP, CMP #### [facility] [address] [address] [address] Toshia JiangPotassium [Moles/Vol]3.8 mmol/LNormal3.5-5.1The [facility] Comment on above:Performed By: #### BNP, CMP #### [facility] [address] [address] [address] Toshia JiangProtein [Mass/Vol]6.7 g/dLNormal6.4-8.2The [facility] Comment on above:Performed By: #### BNP, CMP #### [facility] [address] [address] [address] Toshia JiangSodium [Moles/Vol]140 mmol/FVlzxlo526-486Rif [facility] Comment on above:Performed By: #### BNP, CMP #### [facility] [address] [address] [address] Toshia JiangUrea nitrogen [Mass/Vol]10.0 mg/dLNormal7.0-18.0The [facility] HospitalComment on above:Performed By: #### BNP, CMP #### [facility] [address] [address] [address] Toshia JiangUrea nitrogen/Creatinine [Mass ratio]11.2 mg/mgNormLutheran HospitalComment on above:Performed By: #### BNP, CMP #### [facility] [address] [place], [place] [address] Dr. Toshia Jiang Vital Signs Date TimeVital SignValuePerforming JjhxilpeoMqanvwuz80-90-9683 15:14-0400Body djwipq751.56 cmMD Evaristo Knappight Work Phone: [phone] [place], [place] [address]10-22-2024 15:14-0400 Body mass index (BMI) [Ratio]19.7 kg/m2MD Evaristo Knappight Work Phone: [phone]10-22-2024 15:14-0400 Body scyeoo52.16 kgMD Evaristo Tavares Work Phone: [phone]12-19-2022 16:00-0500 Body rrcqigjiupv36 [degF]DO Tomás [employer] Work Phone: [phone]12-19-2022 16:00-0500 Diastolic blood ulutgcgu01 mm[Hg]DO Tomás [employer] Work Phone: [phone]12-19-2022 16:00-0500 Heart rate58 /Janiya Hoganister Work Phone: [facility]12-19-2022 16:00-0500 Respiratory rate16 /minDO Tomás Hoganister Work Phone: [phone] [place], [place] [address]12-19-2022 16:00-0500 SaO2% (BldA) [Mass fraction]95 %DO Tomás [employer]ister Work Phone: [facility]12-19-2022 16:00-0500 Systolic blood vxnekvrp403 mm[Hg]DO Tomás [employer]ister Work Phone: [facility]12-19-2022 05:34-0500 Body athinw25.3 kgDO Tomás Roche Work Phone: [phone] [place], [place] 365[address]12-17-2022 20:37-0500 Diastolic blood ltpyiebc59 mm[Hg]DO Tomás Roche Work Phone: [phone] [place], [place] 365[address]12-17-2022 20:37-0500 Heart rate50 /Janiya Roche Work Phone: [phone] [place], [place] 365[address]12-17-2022 20:37-0500 Respiratory rate18 /minDO Tomás Roche Work Phone: [phone]12-17-2022 20:37-0500 SaO2% (BldA) [Mass fraction]95 %DO Tomás Roche Work Phone: [phone]12-17-2022 20:37-0500 Systolic blood xvvomtzd80 mm[Hg]DO Tomás Roche Work Phone: [phone] [place], [place] 365[address]12-17-2022 14:40-0500 Body pqqoym000.1 cmDO Tomás Roche Work Phone: [phone] [place], [place] 3655612-17-2022 14:40-0500 Body hxhxso62.1 kgDO Tomás Roche Work Phone: [phone] [place], [place] [address]12-17-2022 14:36-0500 Body hhdmuikuzhq83 [degF]DO Tomás Roche Work Phone: [phone] [place] [address] Encounters Encounter DateEncounter TypeCare ProviderFacilityStart: 97-30-1110vonnvhwcdecarly BrownFacility:[facility]Start: 11-23-3056drymtghitgCYGEMemorial Health Systemtart: 09-20-5372lrmskvtkavQmpihl L. Bobbs Facility:[facility]vueStart: 05-17-2025 End: 28-47-2254bauhewswhfEZV Jodi L SchwabFacility:[facility] BellevueStart: 47-21-7766ebttkviwaaAQMNSumma Health Wadsworth - Rittman Medical Centertart: 04-10-2025 End: 95-32-7487qinhibkrltLSCISumma Health Wadsworth - Rittman Medical Centertart: 08-60-1190qxvaizioeiCAWQHOhioHealth Grant Medical Centertart: 04-35-4523aonlngggacMUFTFOhioHealth Grant Medical Centertart: 84-64-0571xsibusvcbaZDQPTOhioHealth Grant Medical Centertart: 80-62-6005knubfjimkhNAKKSumma Health Wadsworth - Rittman Medical Centertart: 32-69-0496Dxxhuiqxd for preprocedural cardiovascular examinationMemorial Health Systemtart: 12-25-2024 End: 04-23-3281murkyirsefGLIDSumma Health Wadsworth - Rittman Medical Centertart: 64-22-5071iaxhgcfqhpVTLGDetwiler Memorial Hospitaltart: 22-09-4295bwfbxdxtegIMQMSumma Health Wadsworth - Rittman Medical Centertart: 10-03-2024 End: 79-06-7207zmvybcvbxuANEFSumma Health Wadsworth - Rittman Medical Centertart: 10-01-2024 End: 39-20-2743jyrsuyqcppYbeiom E. RossFacility:[facility] HospitalevueStart: 09-28-2024 End: 62-09-9230shezghjrmbTDRYUR MOUKARBELPremier Health Upper [facility] Start: 88-44-5946rmkjhgrjbdVJCZSumma Health Wadsworth - Rittman Medical Centertart: 09-06-2024 End: 51-20-2599rbnxnebfabSdpwed E. RossFacility:[facility] HospitalevueStart: 08-02-2024 ambulatorySumma Health Wadsworth - Rittman Medical Centertart: 07-31-2024 ambulatorySumma Health Wadsworth - Rittman Medical Centertart: 07-26-2024 ambulatorySumma Health Wadsworth - Rittman Medical Centertart: 07-03-2024 ambulatorySumma Health Wadsworth - Rittman Medical Centertart: 06-20-2024 ambulatorySumma Health Wadsworth - Rittman Medical Centertart: 06-07-2024 ambulatorySumma Health Wadsworth - Rittman Medical Centertart: 05-15-2024 End: 20-02-5370kzwwtgwudeSM Kim E Knight Work Phone: [facility] Work Phone: Start: 05-15-2024 End: 61-23-7847Ujmtvrg encounter procedureMD Evaristo Tavares Work Phone: [facility] Work Phone: start: 03-06-2024 End: 51-30-3055sqcikvidziTN Kim E Knight Work Phone: [facility] Work Phone: Start: 03-06-2024 End: 20-59-3874Qibslbq encounter procedureMD Evaristo Tavares Work Phone: [facility] [place] [facility] Work Phone: Start: 03-06-2024 End: 47-36-2353Mtumlnl encounter procedureMD Evaristo Tavares Work Phone: [facility] [place] [facility] Start: 03-06-2024 End: 74-41-9983coadmicuttTD Kim E Knight Work Phone: [facility] Work Phone: Start: 02-06-2024 End: 19-62-6359Quxbemt encounter procedureMD Evaristo Tavares Work Phone: [facility] Work Phone: Start: 02-06-2024 End: 97-87-3920pjkivushzkBV Kim E Knight Work Phone: [facility] Work Phone: Start: 01-16-2024 End: 40-49-8596pofesimufhRR Kim E Knight Work Phone: [facility] Work Phone: Start: 01-16-2024 End: 57-69-4056Tlhjmtl encounter procedureMD Evaristo Tavares Work Phone: [facility] Work Phone: Start: 09-07-2023 End: 33-24-5583Ztf Drop offTrupti Weaver [facility] Start: 11-12-2022 End: 80-95-0540gvigqjxacoUG KIM E KNIGHT .Facility:V4Ehvku: 81-75-3565prlfmbhykc Dung Ruiz IIFacility:9090Start: 19-45-5935lcvtngzslmBnmuund Patrick McGuinn IIFacility:9090Start: 2022 End: 34-25-5763Ekofwqvspj and management of inpatientDO Tomás Roche Work Phone: [facility] [place] [facility] SurgStart: 04-27-2022 End: 36-01-5840ewakmbccswYO MARSHAL MOUKARBELFacility:H1Loxeg: 03-26-2022 ambulatoryDR MARSHAL MOUKARBELFacility:S5Shjpa: 03-23-2022 End: 55-09-1659igimqohaxnQSEDBLU TUCKERFacility:G4Ahvht: 03-03-2022 End: 32-95-3817nhqrhupmlqWUVOOKM TUCKERFacility:Y8Xpsch: 79-57-9361rdvpynfipo ABBY TUCKERFacility:L4Fcfdb: 12-31-2021 End: 07-24-2989yjtxhsierdSF EVARISTO TAVARES .Facility:W9Ghkdv: 12-29-2021 End: 76-78-9581qzuaptufsdBBNDCEN TUCKERFacility:H1 Procedures DateProcedureProcedure DetailPerforming ClinicianStart: 17-45-9659Cffza X-ray of left shoulderMD Evaristo Tavares Work Phone: Start: 99-39-7101Tzupl X-ray of left elbowMD Evaristo Tavares Work Phone: Start: 47-77-7181Mwzln X-ray of left shoulderMD Evaristo Tavares Work Phone: Start: 67-45-6917Grnxj X-ray of left shoulderMD Evaristo Tavares Work Phone: Start: 87-50-2294Janyqrf ultrasonography of bilateral carotid arteriesDO Tomás Roche Work Phone: Start: 68-18-6090Csfor chest X-rayDO Tomás Roche Work Phone: Ankle region structure (body structure)[facility] Comment on above:screw in right ankleCardiac catheterizationJoAmideBio Cardiac pacemaker, device (physical object)[facility] Comment on above:2020H/O: vasectomyJoAmideBio [phone]-BlE-2, Influenza & RSV (PCR)DO Tomás Roche Work Phone: Tonsil and adenoid structure (body structure)[facility] Plan of Treatment DateCare ActivityDetailAuthorStart: 61-39-5888Y-ray of cervical spineXR cerv spine AP/LAT/FLX/EXTUniversity Hospitals Elyria Medical Centertart: 34-42-6800R-ray of lumbar spine, six views including bending viewsXR lumbar spine 6V w bending [facility] Centertart: 54-16-4146K-ray of thoracic spine, three viewsXR thoracic spine 3V*[facility] Centertart: 13-51-0816CE Cervical spine 4 ViewsUniversity Hospitals Elyria Medical Centertart: 10-21-5941PI Lumbar spine ViewsUniversity Hospitals Elyria Medical Centertart: 97-11-4160GY Thoracic spine 3 ViewsUniversity Hospitals Elyria Medical Centertart: 81-72-5958Lzpcqlh referral [facility] Work Phone: Start: 45-52-1916Ignce X-ray of left shoulderXR shoulder LT min 2V*[facility] Centertart: 32-24-7901VX Shoulder - left ViewsUniversity Hospitals Elyria Medical Centertart: 98-74-6959Rnndp X-ray of left elbowXR elbow LT 2VUniversity Hospitals Elyria Medical Centertart: 30-19-1700QT Elbow - left 2 ViewsUniversity Hospitals Elyria Medical Centertart: 69-93-2349Jqyuz X- ray of left shoulderXR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
--- NOTE | 2025-06-28 13:49 | CA_ITS ---
Patient Name: ANTONIO COFFMAN MR#: [id number] : 1950 Exam Date: 06/28/2025 Ordering Doctor: KIMBERLY TAPIA ECHOCARDIOGRAM REPORT PROCEDURE: CA ECHO DOPPLER COMPLETE INDICATIONS: Ischemic Cardiomyopathy COMPARISON: None. DESCRIPTION: COMPLETE ECHOCARDIOGRAM Real-time transthoracic echocardiography with 2D, M-mode, spectral and color flow Doppler performed. QUALITY: Technical quality was good. LEFT VENTRICLE: Mild dilatation. Mild eccentric left ventricular hypertrophy. There is akinesis of the mid and distal anterior wall, septum and apex. Visual estimation of left ventricular ejection fraction is 20-25%. Myocardial strain is abnormal at -7.8%. LV EF: Severely reduced left ventricular ejection fraction, (20-25%). DIASTOLIC: ATRIAL SEPTUM: LEFT ATRIUM: Mild dilatation. RIGHT ATRIUM: Mild dilatation. RIGHT VENTRICLE: Normal chamber size. Normal right ventricular systolic function. Pacer wire present. TRICUSPID VALVE: Normal mobility and thickness. No stenosis with trivial regurgitation. No evidence of pulmonary hypertension. The RVSP measures 24 mmHg MITRAL VALVE: Normal mobility and thickness. No evidence of mitral valve stenosis. There is no mitral annular calcification. Trivial mitral regurgitation. AORTIC VALVE: Normal trileaflet appearance. No visible sclerosis. Normal leaflet mobility. No evidence of aortic valve stenosis. No aortic regurgitation. AORTIC ROOT: Normal diameter and appearance. The aortic root measures 3.5 cm. The ascending aorta is normal in size measuring 3.4 cm. PULMONIC VALVE: Normal thickness and mobility. No stenosis. No regurgitation. PERICARDIUM: Trivial anterior pericardial effusion. IVC: Collapses with inspiration. The IVC is normal in size measuring 1.3cm. PLEURA: CONCLUSION: 1. Mild eccentric left ventricular hypertrophy with severely reduced systolic function. There is akinesis of the mid and distal anterior wall, septum and apex. Estimated LVEF is 20 to 25%. 2. Normal right ventricular size and systolic function. 3. Mild biatrial dilatation. 4. No significant valvular dysfunction. 5. Normal right-sided pressures. Adult Echocardiography Procedure Report Left Ventricle LVEDD (3.7 - 5.6 cm): 5.90 cm LVESD (2.2 - 4.0 cm): 4.88 cm LVIVS thickness (0.6 - 1.2 cm): 1.19 cm LVPW thickness (0.5 - 1.0 cm): 1.26 cm e': 0.07 m/s E - e': 5.50 LVOT Max Gradient: 4.10 mm[Hg] LVOT Area (cm2): 1.01 m/s Peak Velocity (LVOT): 1.01 m/s Mean Velocity (LVOT): 0.64 m/s LVOT Diameter 2.31 cm Left Ventricular Ejection Fraction: 20-25 % Left Atrium LA Volume Index (2D A2C): 41.00 ml/m2 Left Atrium Systolic Dimension: 4.27 cm Mitral Valve MV E to A Ratio: 0.40 Mitral Valve A-Wave Peak Velocity: 1.03 m/s Mitral Valve E-Wave Peak Velocity: 0.41 m/s Right Ventricle RV Internal Diastolic Dimension: 3.14 cm Aorta AO Root Diam: 3.48 cm Ascending Ao Diam: 3.40 cm Aortic Valve AoV Area (Peak Ari): 3.37 cm2, 3.37 cm2 AoV Area (VTI): 3.04 cm2, 3.04 cm2 Peak Velocity(Antegrade Flow): 1.27 m/s Peak Gradient(Antegrade Flow): 6.41 mm[Hg] Mean Velocity(Antegrade Flow): 0.85 m/s Mean Gradient(Antegrade Flow): 3.37 mm[Hg] Velocity Time Integral: 27.27 cm Tricuspid Valve Peak Velocity (Regurgitant Flow): 2.08 m/s, 2.30 m/s Pulmonic Valve Peak Velocity: 0.93 m/s Peak Gradient: 4.38 mm[Hg], 2.70 mm[Hg] Right Atrium Right Atrium Systolic Pressure: 38.30 ml, 38.30 ml Dictated by: Filemon Miller M.D. on 06/28/2025 at 21:43 Approved by: Filemon Miller M.D. on 06/28/2025 at 21:49
== END 2025-06-28 13:26 | disposition home or self-care (01) ==
LOC: CARD 13:26
PROVIDERS: PCP Nurse Practitioner; Visit Provider Internal Medicine Cardiovascular Disease
DX: I25.5 Ischemic cardiomyopathy (principal)
CPT/HCPCS: 93306; 93356